=== PATIENT | male | born 1940 | race Caucasian/White ===

== ENCOUNTER 2023-01-27 00:39 | Day surgery (SDC) | payer MEDICARE, SELFPAY ==
[2023-01-26 10:22] VITALS: BMI 29.3
--- NOTE | 2023-01-26 10:37 | PC.NURSE ---
Report to the Outpatient Waiting Room, entrance under the green pavilion located off [facility], at time ___0745____ on date ___01/27/23____. Planned Procedure Time: __1045 . NUC MED INJ @ 0845 Time changes happen often and if your time is changed the preop area will call you the afternoon before. - You and your visitor will be asked to self-screen and do not enter if you have any COVID symptoms. - A mask is optional within the hospital at this time. Patients may have clear liquids (water, carbonated beverages, clear teas, apple juice) until 3 hours prior to surgery (0745 AM) with a maximum of 20 ounces. - No food from midnight until time of surgery - Infants may have breast milk until 4 hours before surgery, infant formula 6 hours prior to surgery. - Children will be allowed to drink immediately following surgery. If applicable, please bring a bottle or sippy cup to assist with drinking. Juice, water, soda, and popsicles are readily available. For infants on formula, please bring formula the day of surgery. Pacifiers are allowed. Take the following medications with a SIP of water the morning of surgery: __METOPROLOL__ DO NOT STOP ANY OF YOUR OTHER PRESCRIPTION MEDICATIONS PRIOR TO SURGERY ?EXCEPT THE FOLLOWING Medications to discontinue per physician N/A Date to take last dose Please no make-up, nail kyrgyz, hairspray, perfume, deodorant, or body powder the day of surgery. No jewelry (including any body piercings) or valuables the day of surgery, leave them at home. Please take a shower or bath the night before, or the morning of, surgery with an antibacterial soap. Wear comfortable, loose fitting clothing. Children are encouraged to wear pajamas. - Jewelry must be removed prior to entering the operating room. Rings and piercings that are not removed may be cut off. - The hospital will not accept responsibility for valuables. - Please leave all valuables, including medications, at home the day of surgery. If you are going home after surgery, a licensed petrol tanker driver must drive you home. - NO public transportation without another adult if you receive anesthesia. - We recommend that an adult stay with you for 24 hours following discharge. - We also recommend that you do not drive, make important decision, drink alcoholic beverages, or take any drugs that were not prescribed by your health care provider for at least 24 hours after your discharge time. For Pediatric surgeries, we recommend two adults accompany the child home. Follow any additional instructions given to you from your surgeon. If you or anyone in your household have experienced Covid symptoms in the past week, please notify your surgeon or the nurse liaison at the phone number below for possible testing. Telephone instructions given to ___PT and asked if any additional questions and then verbalized understanding. Patient advised to call surgeon office or pre surgery nurse liaison [phone] if any additional questions.
[2023-01-27] VITALS (7 sets, daily range): BP systolic 107–137; BP diastolic 68–95; PULSE 94–96; RESP 15–26; TEMP 36.4–36.7; O2SAT 92–100; BMI 28.5
--- NOTE | ~2023-01-27 | NM_ITS ---
EXAMINATION: NM sentinel node w imaging DATE: 01/27/2023 10:18 INDICATION: Left earlobe melanoma TECHNIQUE: 0.512 mCi Tc-99m Lymphoseek was injected in two aliquots cephalad and caudal to the transv erse surgical wound along the pinna of the left ear. Immediate and delayed scintigrams of the neck an d chest were obtained. IMPRESSION: 1. Left ear sentinel lymph node radiopharmaceutical injection demonstrating a single left submandibu lar sentinel lymph node. Reviewed, dictated and finalized at location A. IMPRESSION: 1. Left ear sentinel lymph node radiopharmaceutical injection demonstrating a single left submandibular sentinel lymph node.
--- NOTE | 2023-01-27 07:11 | WPDHPUPDATE1 ---
History and Physical Update Update Date/Time: 01/27/23 07:11 History and Physical has been reviewed, including an updated exam of the patient. There are NO changes in the patient's condition. Risks, benefits, and alternatives have been discussed and questions answered. Patient agrees to proceed with procedure.
--- NOTE | 2023-01-27 07:22 | ECG_ITS ---
Measurements Intervals [place] Rate: 91 P: 5 CO: 181 QRS: -53 QRSD: 99 T: 69 QT: 368 QTc: 454 Interpretive Statements SINUS RHYTHM VOLTAGE CRITERIA FOR LVH [MEETS CRITERIA IN ONE OF: R(aVL), S(V1), R(V5), R(V5/V6)+S(V1)] LEFT ANTERIOR SUPERIOR HEMIBLOCK ABNORMAL ECG NO PREVIOUS ECG AVAILABLE FOR COMPARISON Electronically Signed On 01-27-2023 13:25:50 CDT by Emmett Mosley M.D.
[2023-01-27] MEDS: LACTATED RINGERS 1,000 ML 30 ML IV CONT (08:55)
[2023-01-27 09:10] LABS: Glucose Point of Care 132 mg/dl (65-105)
[2023-01-27 09:12] LABS: Anion Gap 8 mmol/L (8-16); Blood Urea Nitrogen 15 mg/dL (9-20); Calcium 9.2 mg/dL (8.4-10.2); Carbon Dioxide 26 mmol/L (22-30); Chloride 103 mmol/L (98-107); Estimated CRCL calculation 61 ml/min; Estimated Glomerular Filt Rate > 60; Glucose 126 mg/dL (65-110); Potassium 4.2 mmol/L (3.4-5.0); Sodium 137 mmol/L (137-145)
[2023-01-27 09:19] LABS: Prothrombin Time 13.5 Seconds (11.1-14.7)
[2023-01-27 09:20] LABS: Partial Thromboplastin Time 36.1 SECONDS (22.3-36.8)
--- NOTE | 2023-01-27 10:00 | SUR.PREOP ---
0910- Patient to nuclear medicine via wheelchair by Dario Mantilla RN. 1000- Patient returned to pre-op room 7 via wheelchair by radiology staff.
--- NOTE | 2023-01-27 10:40 | WPDANESEPPF ---
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 Patient Data Age: 82 Gender: M Height: 1.8 m Weight: 93 kg Last Vital Signs Temp 97.6 F 01/27/23 08:30 Pulse 94 01/27/23 08:30 Resp 16 01/27/23 08:30 BP 137/95 H 01/27/23 08:30 Pulse Ox 97 01/27/23 08:30 O2 Del Method Room Air 01/27/23 08:30 Allergies Allergy/AdvReac Type Severity Reaction Status Date / Time Penicillins AdvReac FEET Verified 01/27/23 09:02 SWELLING Home Medications Medication Instructions Recorded Confirmed Type allopurinol 300 mg tablet 300 mg DAILY 01/26/23 01/26/23 History aspirin 81 mg tablet,delayed 81 mg PO DAILY 01/26/23 01/26/23 History release atorvastatin 80 mg tablet 80 mg HS 01/26/23 01/26/23 History metformin 1,000 mg tablet 500 mg BID 01/26/23 01/26/23 History metoprolol tartrate 25 mg tablet 25 mg BID 01/26/23 01/27/23 History polyethylene glycol 3350 17 17 g PO DAILY 01/26/23 01/26/23 History gram/dose oral powder (Miralax) Laboratory Tests 01/27/23 01/27/23 08:52 09:06 PT 13.5 Seconds (11.1-14.7) INR 1.0 APTT 36.1 SECONDS (22.3-36.8) Sodium 137 mmol/L (137-145) Potassium 4.2 mmol/L (3.4-5.0) Chloride 103 mmol/L (98-107) Carbon Dioxide 26 mmol/L (22-30) Anion Gap 8 mmol/L (8-16) BUN 15 mg/dL (9-20) Creatinine 0.90 mg/dL (0.7-1.3) Estim Creat Clear Calc 61 ml/min Estimated GFR > 60 (59 - ) Glucose 126 H mg/dL (65-110) POC Capillary Glucose 132 H mg/dl (65-105) Calcium 9.2 mg/dL (8.4-10.2) Patient hx anesthesia problems: none Family hx anesthesia problems: none Results Review: All pre-operative results and documents have been reviewed as part of the pre-operative evaluation. [facility] Social History Social History Smoking packs per day: 1 Smoking cigarettes per day: 20.0 Years smoked: 30 Smoking pack-years: 30.00 Smoking status: Former smoker Tobacco type: cigarettes Additional smoking assessment comments: STAETS QUIT 2017~ Alcohol intake: current Alcohol use details: RARELY - COUPLE TIMES A YR Substance use: never Substance use type: does not use Living arrangements: alone Spiritual care concerns: No Anes - Eval Final PreProcedure Day of Procedure 01/27/23 10:40 Patient weight: normal Heart: regular rate and rhythm Lungs: clear to auscultation Airway: Mallampati scale class II Neurological: alert and oriented Last oral intake: >/= 8 hours ASA classification: III Emergent: no Anesthetic plan: proceed Anesthesia type and monitoring: general LMA and standard monitoring Results Review: All pre-operative results and documents have been reviewed as part of the pre-operative evaluation. Informed Consent: The patient's anesthetic plan and its attendant risks and benefits were discussed with the patient/family/POA. Questions were solicited and answers provided to the satisfaction of the patient/family/POA.
[2023-01-27] MEDS: LIDO 1%/EPINEPHRINE 1:100,000 20 ML VIAL 10 ML INFILTRATE (10:47)
--- NOTE | 2023-01-27 12:42 | W.PM.PROC2 ---
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 At nuclear medicine an inframandibular hot spot was identified and marked. This lay right at the inferior margin of the mandible between the angle and the mentum. The patient was rolled into the operating room and placed supine on the operating table. He was given general anesthesia with an LMA. His shoulder was supported on a rolled towel. The left face and neck were prepped and draped in usual fashion. The ink mary kate was confirmed. A time-out was held and confirmed. The area was examined for palpable lymph nodes. None were identified. The angle of the mandible and the margin of the body were marked as well as presumed course for the marginal mandibular nerve. A left neck crease was identified about 3 cm below the margin of the mandible. This site was infiltrated with 1% lidocaine with epinephrine just under the dermis. No additional lidocaine was used. The patient had no IV muscle relaxant. The incision was made as marked and dissected through the subcutaneous tissue to the platysma. A vertical split in the platysma was done just to see if we could find the marginal mandibular nerve and did not. The platysma was divided below that level over a hemostat. [place] use of the nerve stimulator was done and the nerve was protected throughout under the upper flap. Subsequent dissection was almost entirely done with blunt dissection using Littler or small Metzenbaum. The submandibular gland was identified, the capsule was carefully exposed. The marginal mandibular nerve was again identified there. The gamma probe did identify a signal at the skin marking spot prior to incision. Once the flap was elevated it became very difficult to identify any particular hot location other than the original tumor site. The submandibular gland was exposed on its outer surface taking care to manage the marginal mandibular nerve. The facial vein was divided between ligatures and it was elevated cephalad to protect the identified nerve. The submandibular gland was essentially subjacent to the reported hot spot . All tissue superficial to the gland was carefully examined with the gamma probe. With additional blunt dissection lateral and medial to the gland I was able to dissect more deeply allowing placement of the gamma probe directed away from the original tumor site. There was a low steady count from all aspects that were dissected. The probe was directed around the gland, up under the mandible and inferiorly and superiorly in the direction of the jugular vein and into the substance of the gland and along the deep side of the platysma flap. I was not able at any time to detect any spot with a consistently higher count. The search was terminated. The 3 cm gap in the platysma was not repaired the dermis was repaired with running intradermal 3-0 Monocryl suture. No drains were placed Estimated Blood Loss 3 Drains No Packing No Pathology None sent Complications No immediate complications Condition Stable Disposition Same day
[2023-01-27 12:51] LABS: Glucose Point of Care 114 mg/dl (65-105)
== END 2023-01-27 14:09 | disposition home or self-care (01) ==
PROVIDERS: PCP Family Medicine; Visit Provider Plastic Surgery
PROC: (CPT 21899; principal; 2023-01-27 11:00)
DX: C43.22 Malignant melanoma of left ear and external auricular canal (principal); Z79.84 Long term (current) use of oral hypoglycemic drugs; Z79.82 Long term (current) use of aspirin; Z87.891 Personal history of nicotine dependence; Z86.73 Personal history of transient ischemic attack (TIA), and cerebral infarction without residual deficits
CPT/HCPCS: 21899; 36415; 78195; 80048; 82948; 85610; 85730; 93005; A9270; A9520; J1165; J1200; J2704; J3010; J7120

== ENCOUNTER 2023-09-21 10:52 | Outpatient (CLI) | payer MEDICARE, SELFPAY ==
--- NOTE | ~2023-09-21 | PE_ITS ---
EXAMINATION: PET_PETPSMAST_PT DATE: 09/21/2023 14:40 INDICATION: Prostate cancer for restaging with elevated PSA level TECHNIQUE: 5.337 mCi of Locametz Ga-68([id number]) was administered i.v. Low dose computed milton ography (CT) images were acquired from the base of the brain to the base of the brain to the proximal thighs for attenuation correction and anatomic localization. Positron emission tomography (PET) imag es were acquired in the same distribution beginning 90 minutes after injection. Images including fuse d PET/CT images were reconstructed in axial, coronal, and sagittal planes. Automated exposure control technique was employed. The dose-length product was 1231.28 mGy-cm. COMPARISON: None FINDINGS: Head/neck: Typical pattern of symmetric physiologic increased activity in the lacrimal, parotid and submandibula r glands as well as along the mucosa of the nasal and oral cavities, the simona-, naso- and hypopharynx, the glottis and esophagus. There are couple small normal sized PSMA avid left supraclavicular lymph nodes, the larger and more intensely FDG avid lymph node measuring 7 x 5 mm with maximal SUV 19.1. Chest: Dependent groundglass opacities in the lungs most likely related to atelectasis. Couple tiny calcifie d pulmonary nodules in the right upper and lower lobes and calcified right hilar and mediastinal lymp h nodes consistent with old granulomatous disease. No other suspicious pulmonary nodules, pneumonia, pulmonary edema or pleural effusion. Heart size is normal. Atherosclerotic coronary artery calcific l esion. Aortic valve calcification. No pericardial effusion. Thoracic aorta is normal in caliber. No p athologically enlarged or PSMA avid thoracic lymphadenopathy. There is a small focus of intense PSMA uptake with maximal SUV of 37.9 at the posterior left first rib without evident radiologic correlate . Abdomen/pelvis/proximal thighs: Physiologic renal accumulation and excretion of activity in the kidneys, bladder and along portions o f ureters. There are low-attenuation photopenic cyst at the right kidney the larger the upper pole me asuring 2.9 cm and the smaller measuring 1.8 cm lower pole with subtle peripheral partial rim calcifi cation. There is prominent PSMA uptake along the left to right across the posterior aspect of the pro state with maximal SUV of 28.9. The increased uptake appears to extend into the bilateral seminal ves icles. There is also soft tissue density reaching the fat plane between the prostate in the anus. The re is a similar degree of increased PSMA activity at the anus and could not exclude direct extension of prostate cancer although the anal activity could also be physiologic. There is stranding with incr eased PSMA uptake in the inferior mesenteric fat situated between the bladder and sigmoid colon anter iorly, the bilateral common iliac vasculature on the left and right and the lumbosacral spine posteri ingrid with maximal SUV of 36.4 which is suspicious for metastatic disease although no associated patho logically enlarged lymph nodes appreciated. There are a few small FDG avid left perinephric lymph nod es, the largest and most intense measuring 7 mm in with maximal SUV of 16.1 situated along the infrar enal aorta at the level of L4. Calcified nodules in the liver consistent with old granulomatous disea se. Normal degree and slightly heterogenous pattern of increased uptake throughout the liver and sple en without radiologic correlate or dominant PSMA avid lesion. The gallbladder, pancreas and bilateral adrenal glands are normal. Moderate uptake scattered throughout the bowels with typical duodenal and proximal jejunal predominance and without radiologic correlate, also likely physiologic. Musculoskeletal: Aside from the lesion at the posterior left first rib there are no other suspicious lytic, blastic or PSMA avid bone lesions. IMPRESSION: 1. Increased uptake in the pro
== END 2023-09-21 10:53 | disposition home or self-care (01) ==
PROVIDERS: PCP Family Medicine; Visit Provider Urology
DX: C61 Malignant neoplasm of prostate (principal); R93.5 Abnormal findings on diagnostic imaging of other abdominal regions, including retroperitoneum
CPT/HCPCS: 78815; A9596

== ENCOUNTER 2024-09-05 14:43 | Outpatient (CLI) | payer MEDICARE, SELFPAY ==
[2024-09-05 15:06] LABS: Basophils Absolute Auto 0.02 K/mm3 (0.00-0.10); Basophils Percent Auto 0.3 % (0.0-1.0); Eosinophils Absolute Auto 0.12 K/mm3 (0.02-0.50); Eosinophils Percent Auto 1.8 % (1.0-6.0); Hematocrit 38.9 % (37.0-46.0); Hemoglobin 12.7 g/dL (12.4-15.3); Immature Granulocyte Absolute 0.03 K/mm3 (0.00-0.00); Immature Granulocyte Percent A 0.5 % (0.0-0.0); Lymphocytes Absolute Auto 0.91 K/mm3 (1.10-4.50); Lymphocytes Percent Auto 13.8 % (18.0-42.0); Mean Corpuscular HGB Conc 32.6 g/dL (32-36); Mean Corpuscular Hemoglobin 32.2 pg (27.0-31.0); Mean Corpuscular Volume 98.5 fL (78.0-102.0); Mean Platelet Volume 9.2 fl (8.7-11.0); Monocytes Absolute Auto 0.71 K/mm3 (0.10-0.90); Monocytes Percent Auto 10.8 % (2.0-11.0); Neutrophils Percent Auto 72.8 % (50.0-70.0); Platelet Count Result 222 K/mm3 (150-420); Red Blood Count 3.95 M/mm3 (4.70-6.10); Red Cell Distribution Width 13.2 % (11.6-14.4); White Blood Count 6.6 K/mm3 (4.8-10.8)
[2024-09-05 15:20] LABS: Hemoglobin A1C 5.5 % (<5.7)
[2024-09-05 15:40] LABS: Alanine Aminotransferase 17 U/L (16-63); Albumin Level 3.3 g/dL (3.4-5.0); Alkaline Phosphatase 153 U/L (46-116); Anion Gap 6 mmol/L (4-12); Aspartate Amino Transferase 12 U/L (15-37); Bilirubin,Total 0.4 mg/dL (0.00-1.00); Blood Urea Nitrogen 17 mg/dL (7-18); Calcium 9.1 mg/dL (8.5-10.1); Carbon Dioxide 31 mmol/L (21-32); Chloride 103 mmol/L (98-108); Cholesterol 113 mg/dL (0-200); Estimated Glomerular Filt Rate 54; Glucose 102 mg/dL (70-99); HDL Direct 35 mg/dL (40-60); LDL Cholesterol Calculated 41 mg/dL (<130); Magnesium 1.9 mg/dL (1.8-2.4); Osmolality Calculated 291 mOsm/kg (285-295); Potassium 4.5 mmol/L (3.5-5.1); Sodium 140 mmol/L (136-145); Total Protein 6.6 g/dL (6.4-8.2); Triglycerides 184 mg/dL (0-150)
--- OUTSIDE RECORDS SUMMARY | 2024-09-05 16:05 | XMS_ITS | Clinical Summary ---
Author Organization [facility] Address [address] [place] [address] Care Team Providers Care Marine Tower Operator Name Role Phone Karen Watkins TAMARA Primary Care Provider Jaylen Mccarty MD Unavailable [phone] Fiorella Gilman PA-C Unavailable + [phone] Allergies Active Allergy Reactions Criticality Noted Date Comments Penicillins Other (see comment) 11/22/2023 As a child had reaction. Medications allopurinol (ZYLOPRIM) 300 MG tablet Take 1 tablet (300 mg total) by mouth daily. 06/10/2023 Active atorvastatin (LIPITOR) 80 MG tablet Take 1 tablet (80 mg total) by mouth daily. 06/10/2023 Active metFORMIN (GLUCOPHAGE) 1000 MG tablet Take 1 tablet (1,000 mg total) by mouth 2 (two) times daily. 06/10/2023 Active tamsulosin (FLOMAX) 0.4 MG Cap Take 1 capsule (0.4 mg total) by mouth daily. 09/05/2023 Active metoprolol tartrate (LOPRESSOR) 25 MG tablet Take 1 tablet (25 mg total) by mouth 2 (two) times daily. 06/10/2023 Active Social History Tobacco Use Types Packs/Day Years Used Date Smoking Tobacco: Former Cigarettes Smokeless Tobacco: Never Tobacco Cessation:Counseling Given: Not Answered Comments:Smoked for 30 years. He quit 20 years ago. Alcohol Use Standard Drinks/Week Comments Yes 0 (1 standard drink = 0.6 oz pur e alcohol) occ. 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 Gender Identity Not on file Sexual Orientation Not on file Last Filed Vital Signs Vital Sign Reading Time Taken Comments Blood Pressure 164/88 11/22/2023 1:28 PM CDT Pulse 78 11/22/2023 1:28 PM CDT Temperature 35.8 C (96.4 F) 11/22/2023 10:43 AM CDT Respiratory Rate 20 11/22/2023 1:28 PM CDT Oxygen Saturation 93% 11/22/2023 1:28 PM CDT Inhaled Oxygen Concentration - - Weight 96.6 kg (213 lb) 11/22/2023 10:43 AM CDT Height 180.3 cm (5' 11 ) 11/22/2023 10:43 AM CDT Body Mass Index 29.71 11/22/2023 10:43 AM CDT Plan of Treatment Health Maintenance Due Date Last Done Comments DTaP, Tdap and Td Vaccines ( 1 - Tdap) 1961 Zoster Vaccines (1 of 2) 1992 Annual Medicare Wellness Visit 2007 Pneumococcal Vaccine: 65+ Ye ars (1 of 1 - PCV) 2007 RSV Immunization or 60+ Years (1 - 1-dose 75+ series) 2017 COVID-19 Vaccine ( - 2023-2 5 season) 2024 Influenza Adult (#1) 2024 Meningococcal B Vaccine Aged Out No l onger eligible based on patient's age to complete this topic Meningococcal Vaccine Aged Out No evelia michael eligible based on patient's age to complete this topic RSV Immunizations Under 20 Months Aged Out No longer eligible based on patient's age to complete this topic Insurance MEDICARE Care Teams Marine Tower Operator Relationship Specialty Start Date End Date Karen Watkins APNP [address] [place] [address] PCP - General NURSE PRACTITIONER 11/22/23 Jaylen Mccarty MD [address] [place] [id number] Consulting Physician CLINICAL CARDIAC ELECTROPHYSIOLOGY 11/24/23 Fiorella Gilman PA-C [address] [place] [phone] Supervisor CLINICAL CARDIAC ELECTROPHYSIOLOGY 11/24/23
[2024-09-07 03:03] LABS: Vitamin D 25 Hydroxy 37 ng/mL (30-100)
== END 2024-09-05 14:44 | disposition home or self-care (01) ==
PROVIDERS: PCP Nurse Practitioner Family; Visit Provider Nurse Practitioner Family
DX: I10 Essential (primary) hypertension (principal); Z13.6 Encounter for screening for cardiovascular disorders; E78.5 Hyperlipidemia, unspecified; Z79.899 Other long term (current) drug therapy; E11.9 Type 2 diabetes mellitus without complications
CPT/HCPCS: 36415; 80053; 80061; 82306; 83036; 83735; 85025

== ENCOUNTER 2024-11-21 12:46 | Emergency (ER) | payer MEDICARE, SELFPAY ==
--- NOTE | ~2024-11-21 | XR_ITS ---
XR chest 1V portable 11/21/2024 13:43 Indication: Weakness Procedure: AP portable chest Comparison: No prior studies for comparison. Findings: Shallow inspiration with crowding of the pulmonary vessels. Focal left basilar airspace dis ease versus mild interstitial edema. There is atherosclerosis of the aorta. No pneumothorax. No acute osseous abnormality. Possible mild interstitial edema. Impression: 1: Possible mild interstitial edema versus basilar airspace disease which may represent atelectasis o r pneumonia. Shallow inspiration. Reviewed, dictated and finalized at location B. Impression: 1: Possible mild interstitial edema versus basilar airspace disease which may r epresent atelectasis or pneumonia. Shallow inspiration.
[2024-11-21 12:48] VITALS: BP 98/60; PULSE 99; RESP 20; TEMP 36.6; O2SAT 100
--- NOTE | 2024-11-21 13:03 | ED.WEAKNESS ---
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 The patient does not have any specific complaint but feels generalized weakness. -- He was noted to have low blood pressure in the clinic which prompted them to transfer the patient to the ED. patient denies any headache, sore throat, upper respiratory tract infection or sinus pain. no chest pain or shortness of breath. no nausea/ vomiting /abdominal pain /diarrhea. No dysuria or hematuria. MD Complaint: generalized weakness Onset (ago): hour(s) ( 3 hours) Duration: constant Location: generalized Severity: mild Relieving factors: none Exacerbating factors: none Associated symptoms: denies other symptoms Related Data Home Medications ?Medication ?Instructions ?Recorded ?Confirmed ?Last Taken ?Type aspirin 81 mg tablet,delayed 81 mg PO DAILY 01/26/23 09/05/24 Unknown History release polyethylene glycol 3350 17 17 g PO DAILY 01/26/23 09/05/24 Unknown History gram/dose oral powder (Miralax) Allergies Allergy/AdvReac Type Severity Reaction Status Date / Time Penicillins AdvReac FEET Verified 11/21/24 12:50 SWELLING Review of Systems Review of Systems: All systems reviewed & are unremarkable except as noted in HPI and below Constitutional: Constitutional: Reports as per HPI and Reports no additional constitutional complaints Eyes: Eyes: Reports as per HPI and Reports no additional eye complaints ENT: Reports system reviewed and no additional complaints, except as documented and Reports as per HPI Cardiovascular: Cardiovascular: Reports as per HPI and Reports no additional cardiovascular complaints Respiratory: Respiratory: Reports as per HPI and Reports no additional respiratory complaints Gastrointestinal: Gastrointestinal: Reports as per HPI and Reports no additional gastrointestinal complaints Genitourinary: Genitourinary: Reports no additional male genitourinary complaints and Reports as per HPI Musculoskeletal: Musculoskeletal: Reports no additional musculoskeletal complaints and Reports as per HPI Integumentary/Breasts: Skin/Breast: Reports system reviewed and no additional complaints, except as docu and Reports as per HPI Neurologic: Reports system reviewed and no additional complaints, except as documented and Reports as per HPI Psychiatric: Psychiatric: Reports no additional psychiatric complaints and Reports as per HPI Endocrine: Endocrine: Reports no additional endocrine complaints and Reports as per HPI Hematologic/Lymphatic: Hematologic/Lymphatic: Reports no additional hematologic/lymphatic complaints and Reports as per HPI Allergic/Immunologic: Allergic/Immunologic: Reports no additional allergic/immunologic complaints and Reports as per HPI [facility] Surgical History Surgical History History of kidney removal Social History Social History Smoking packs per day: 1 Smoking cigarettes per day: 20.0 Years smoked: 30 Smoking pack-years: 30.00 Smoking status: Former smoker Tobacco type: cigarettes Additional smoking assessment comments: STAETS QUIT 2017~ Alcohol intake: former Alcohol use details: RARELY - COUPLE TIMES A YR Substance use: never Substance use type: does not use Do You Feel Safe in your Home?: Yes Lack of Transportation: No Lack of Food: Never True Current Housing: I Have Housing Difficulty Paying Gas/Electric Bills: No Difficulty Paying for Meds: No Currently Unemployed: No Difficulty w/ Childcare or Family Care: No Living arrangements: alone Occupation/Education: retired Gender identity (if verbalized by the patient): Male Sexual Orientation (if Verbalized by the Patient): Straight or Heterosexual Spiritual care concerns: No Exam Narrative: pressure 107/84 Const: General: no acute distress Nutritional Appearance: well nourished Orientation/consciousness: patient oriented x3 Limitations: no limitations HENMT: Head: normal to inspection Ears: external ears normal Face/Nose/Sinus: Normal external nose present Face and sinus: normal facial exam Mouth: Yes Normal oral and palatal mucosa present Throat: posterior oropharynx normal Eyes: Conjunctivae: conjunctivae normal Pupils: Equal, round and reactive pupils present EOM: EOMs intact bilaterally Direct Ophthalmoscopy: no photophobia Neck: Neck: normal visual inspection, no lymphadenopathy and no meningeal signs Chest: Chest palpation & inspection: normal inspection of the chest Resp: Effort & Inspection: normal respiratory effort Other: bibasilar rales Cardio: Rate: regular rate Rhythm: regular rhythm GI: GI Palp: Yes Soft to palpation Auscultation: normal bowel sounds Other: no tenderness/ rigidity /rebound : General: Yes no CVA tenderness Back/Spine/Pelvis: Back: no CVA tenderness Skin: General skin exam: normal color Rashes: no rashes Wounds: no wounds Neuro: General: patient oriented x3, moves all extremities, no meningeal signs, no focal motor deficits and CN's II-XI intact bilaterally Cranial nerves: Yes Nystagmus not present Speech: normal speech Extrem: General: normal to inspection and no clubbing, cyanosis or edema Psych: Mental Status: mental status grossly normal Affect: normal affect Attitude: cooperative Course Course Emergency Course: generalized weakness history of metastatic prostate cancer elevated lactate of 2.8-- no obvious focus of infection. Patient is afebrile with a normal white cell count. Chest x-ray reveals bibasilar interstitial infiltrates which could be secondary to pneumonia/ atelectasis. will treat with empiric Zithromax. Vital Signs Vital signs: Vital Signs Temperature 36.6 C 11/21/24 12:48 Pulse Rate 99 11/21/24 12:48 Respiratory Rate 20 11/21/24 12:48 Blood Pressure 98/60 L 11/21/24 12:48 Pulse Oximetry 100 11/21/24 12:48 Oxygen Delivery Room Air 11/21/24 12:48 Temperature 36.6 C 11/21/24 12:48 Pulse Rate 99 11/21/24 12:48 Respiratory Rate 20 11/21/24 12:48 Blood Pressure 98/60 L 11/21/24 12:48 Pulse Oximetry 100 11/21/24 12:48 Oxygen Delivery Room Air 11/21/24 12:48 MDM - Weakness MDM Narrative Medical decision making narrative: Metastatic prostate cancer generalized weakness bibasilar infiltrate/atelectasis. Differential Diagnosis Differential diagnosis: Likely sepsis Lab Data Attestation: I reviewed the patient's lab results. 11/21/24 13:45 11/21/24 13:45 Labs: Lab Results 11/21/24 11/21/24 11/21/24 Range/Units 13:41 13:45 13:47 WBC 6.2 (4.8-10.8) K/mm3 RBC 4.27 L (4.70-6.10) M/mm3 Hgb 13.4 (12.4-15.3) g/dL Hct 41.3 (37.0-46.0) % MCV 96.7 (78.0-102.0) fL MCH 31.4 H (27.0-31.0) pg MCHC 32.4 (32-36) g/dL RDW 13.5 (11.6-14.4) % Plt Count 223 (150-420) K/mm3 MPV 9.4 (8.7-11.0) fl Immature Gran % (Auto) 0.3 H (0.0-0.0) % Neut % (Auto) 72.2 H (50.0-70.0) % Lymph % (Auto) 12.8 L (18.0-42.0) % [place] % (Auto) 10.2 (2.0-11.0) % Eos % (Auto) 4.2 (1.0-6.0) % Baso % (Auto) 0.3 (0.0-1.0) % Lymph # (Auto) 0.79 L (1.10-4.50) K/mm3 [place] # (Auto) 0.63 (0.10-0.90) K/mm3 Eos # (Auto) 0.26 (0.02-0.50) K/mm3 Baso # (Auto) 0.02 (0.00-0.10) K/mm3 Abs Immat Gran (auto) 0.02 H (0.00-0.00) K/mm3 Absolute Neuts (auto) 4.44 (1.70-7.20) K/mm3 Absolute Nucleated RBC 0.00 (0.00-0.00) K/mm3 Nucleated RBC % 0.0 (0-0.0) % Sodium 139 (137-145) mmol/L Potassium 4.3 (3.4-5.0) mmol/L Chloride 105 (98-107) mmol/L Carbon Dioxide 28 (22-30) mmol/L Anion Gap 6 (4-12) mmol/L BUN 15 (9-20) mg/dL Creatinine 1.02 (0.7-1.3) mg/dL Estim Creat Clear Calc 53 ml/min Estimated GFR > 60 (59 - ) Glucose 121 H (65-110) mg/dL Calculated Osmolality 289 (285-295) mOsm/kg Lactic Acid 2.8 H (0.4-2.0) mmol/L Uric Acid 3.8 (3.5-8.5) mg/dL Calcium 9.0 (8.4-10.2) mg/dL Total Bilirubin 0.6 (0.2-1.3) mg/dL AST 28 (17-59) U/L ALT 22 (6-50) U/L Alkaline Phosphatase 107 (38-126) U/L Troponin I < 0.012 (0.000-0.034) ng/mL NT-Pro-B Natriuret Pep 127 H (19.9-100) pg/mL Total Protein 6.5 (6.3-8.2) g/dL Albumin 4.1 (3.5-5.1) g/dL Urine Color (Yellow) Urine Appearance (Clear) Urine pH (5.0-8.0) Ur Specific [place] (1.010-1.020) Urine Protein (Negative) Urine Glucose (UA) (Negative) Urine Ketones (Negative) Ur Blood (Man) (Negative) Urine Nitrate (Negative) Urine Bilirubin (Negative) Urine Urobilinogen (0.2-1.0) mg/dL Leukocyte Esterase Rfl (Negative) [place]/UL Influenza A (RT-PCR) Negative (Negative) Influenza B (RT-PCR) Negative (Negative) RSV (RT-PCR) Negative (Negative) SARS-CoV-2 RNA (RT-PCR) Negative (Negative) 11/21/24 Range/Units 13:53 WBC (4.8-10.8) K/mm3 RBC (4.70-6.10) M/mm3 Hgb (12.4-15.3) g/dL Hct (37.0-46.0) % MCV (78.0-102.0) fL MCH (27.0-31.0) pg MCHC (32-36) g/dL RDW (11.6-14.4) % Plt Count (150-420) K/mm3 MPV (8.7-11.0) fl Immature Gran % (Auto) (0.0-0.0) % Neut % (Auto) (50.0-70.0) % Lymph % (Auto) (18.0-42.0) % [place] % (Auto) (2.0-11.0) % Eos % (Auto) (1.0-6.0) % Baso % (Auto) (0.0-1.0) % Lymph # (Auto) (1.10-4.50) K/mm3 [place] # (Auto) (0.10-0.90) K/mm3 Eos # (Auto) (0.02-0.50) K/mm3 Baso # (Auto) (0.00-0.10) K/mm3 Abs Immat Gran (auto) (0.00-0.00) K/mm3 Absolute Neuts (auto) (1.70-7.20) K/mm3 Absolute Nucleated RBC (0.00-0.00) K/mm3 Nucleated RBC % (0-0.0) % Sodium (137-145) mmol/L Potassium (3.4-5.0) mmol/L Chloride (98-107) mmol/L Carbon Dioxide (22-30) mmol/L Anion Gap (4-12) mmol/L BUN (9-20) mg/dL Creatinine (0.7-1.3) mg/dL Estim Creat Clear Calc ml/min Estimated GFR (59 - ) Glucose (65-110) mg/dL Calculated Osmolality (285-295) mOsm/kg Lactic Acid (0.4-2.0) mmol/L Uric Acid (3.5-8.5) mg/dL Calcium (8.4-10.2) mg/dL Total Bilirubin (0.2-1.3) mg/dL AST (17-59) U/L ALT (6-50) U/L Alkaline Phosphatase (38-126) U/L Troponin I (0.000-0.034) ng/mL NT-Pro-B Natriuret Pep (19.9-100) pg/mL Total Protein (6.3-8.2) g/dL Albumin (3.5-5.1) g/dL Urine Color Light yellow (Yellow) Urine Appearance Clear (Clear) Urine pH 7.0 (5.0-8.0) Ur Specific [place] 1.015 (1.010-1.020) Urine Protein Negative (Negative) Urine Glucose (UA) Negative (Negative) Urine Ketones Negative (Negative) Ur Blood (Man) Negative (Negative) Urine Nitrate Negative (Negative) Urine Bilirubin Negative (Negative) Urine Urobilinogen 0.2 (0.2-1.0) mg/dL Leukocyte Esterase Rfl Negative (Negative) [place]/UL Influenza A (RT-PCR) (Negative) Influenza B (RT-PCR) (Negative) RSV (RT-PCR) (Negative) SARS-CoV-2 RNA (RT-PCR) (Negative) ECG Data EKG #1: ECG completion date: 11/21/24 ECG completion time: 13:36 Prior ECG tracings: available for review Interpretation: normal sinus rhythm. Right axis deviation. 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 No ST elevation. Discharge Plan Discharge Clinical Impression: Generalized weakness Bilateral pneumonia Qualifiers: Pneumonia type: due to unspecified organism Lung location: lower lobe of lung Qualified Code(s): J18.9 - Pneumonia, unspecified organism Patient Disposition: Home Condition: Stable Instructions: Antibiotic Form, Bacterial Pneumonia (ED) Patient Language: Arabic Prescriptions: New azithromycin [Zithromax] 250 mg tablet See Rx Instructions .ROUTE .COMPLEX Qty: 6 0RF Rx Instructions: For 250 mg dose pack: take 500 mg today (day 1), then 250 mg for 4 days (days 2-5) No Action allopurinol 300 mg tablet 300 mg PO DAILY Qty: 90 3RF atorvastatin 80 mg tablet 80 mg PO HS Qty: 90 3RF metoprolol tartrate 25 mg tablet 12.5 mg PO BID Qty: 180 3RF metformin 500 mg tablet 500 mg PO BID Qty: 180 3RF tamsulosin 0.4 mg capsule 0.4 mg PO DAILY Qty: 90 3RF aspirin 81 mg Tablet,Delayed Release (Dr/Ec) 81 mg PO DAILY polyethylene glycol 3350 [Miralax] 17 gram/dose Powder 17 g PO DAILY Follow-up/Referrals: Jazzy Medel RECORDING ARTIST [Primary Care Provider] - Time of Disposition: 14:34
--- NOTE | 2024-11-21 13:26 | ECG_ITS ---
Test Date: 2024-11-21 13:35:03 Measurements Intervals [place] Rate: 91 P: 18 PA: 192 QRS: 117 QRSD: 100 T: -7 QT: 359 QTc: 443 Interpretive Statements SINUS RHYTHM LEFT POSTERIOR FASCICULAR BLOCK POSSIBLE ANTERIOR MYOCARDIAL INFARCTION , OF INDETERMINATE AGE BORDERLINE ST-T WAVE ABNORMALITY- INFERIOR LEADS BASELINE ARTIFACT- I, II, III, AVR, AVL, AVF, V1 ABNORMAL ECG No previous ECG available for comparison Electronically Signed On 11-21-2024 14:10:17 CDT by Vini Nesbitt D.O.
[2024-11-21 13:53] LABS: Basophils Absolute Auto 0.02 K/mm3 (0.00-0.10); Basophils Percent Auto 0.3 % (0.0-1.0); Eosinophils Absolute Auto 0.26 K/mm3 (0.02-0.50); Eosinophils Percent Auto 4.2 % (1.0-6.0); Hematocrit 41.3 % (37.0-46.0); Hemoglobin 13.4 g/dL (12.4-15.3); Immature Granulocyte Absolute 0.02 K/mm3 (0.00-0.00); Immature Granulocyte Percent A 0.3 % (0.0-0.0); Lymphocytes Absolute Auto 0.79 K/mm3 (1.10-4.50); Lymphocytes Percent Auto 12.8 % (18.0-42.0); Mean Corpuscular HGB Conc 32.4 g/dL (32-36); Mean Corpuscular Hemoglobin 31.4 pg (27.0-31.0); Mean Corpuscular Volume 96.7 fL (78.0-102.0); Mean Platelet Volume 9.4 fl (8.7-11.0); Monocytes Absolute Auto 0.63 K/mm3 (0.10-0.90); Monocytes Percent Auto 10.2 % (2.0-11.0); Neutrophils Absolute Auto 4.44 K/mm3 (1.70-7.20); Neutrophils Percent Auto 72.2 % (50.0-70.0); Platelet Count Result 223 K/mm3 (150-420); Red Blood Count 4.27 M/mm3 (4.70-6.10); Red Cell Distribution Width 13.5 % (11.6-14.4); White Blood Count 6.2 K/mm3 (4.8-10.8)
[2024-11-21 14:07] LABS: Add Urine Microscopic? NO; Appearance Urine Clear (Clear); Bilirubin Urine Negative (Negative); Blood Urine Negative (Negative); Color Urine Light Yellow (Yellow); Glucose Urine UA Negative (Negative); Ketones Urine Negative (Negative); Leukocyte Esterase Ur Negative LEU/UL (Negative); Nitrate Urine Negative (Negative); Protein Urine Negative (Negative); Specific Grav Ur 1.015 (1.010-1.020); Urobilinogen Urine 0.2 mg/dL (0.2-1.0)
[2024-11-21 14:14] LABS: Alanine Aminotransferase 22 U/L (6-50); Albumin Level 4.1 g/dL (3.5-5.1); Alkaline Phosphatase 107 U/L (38-126); Anion Gap 6 mmol/L (4-12); Aspartate Amino Transferase 28 U/L (17-59); Bilirubin,Total 0.6 mg/dL (0.2-1.3); Blood Urea Nitrogen 15 mg/dL (9-20); Carbon Dioxide 28 mmol/L (22-30); Chloride 105 mmol/L (98-107); Estimated CRCL calculation 53 ml/min; Estimated Glomerular Filt Rate > 60; Glucose 121 mg/dL (65-110); Osmolality Calculated 289 mOsm/kg (285-295); Potassium 4.3 mmol/L (3.4-5.0); Sodium 139 mmol/L (137-145); Total Protein 6.5 g/dL (6.3-8.2); Uric Acid 3.8 mg/dL (3.5-8.5)
[2024-11-21 14:15] LABS: Lactic Acid Reflex 2.8 mmol/L (0.4-2.0)
[2024-11-21 14:23] LABS: NT Pro B Type Natriuretic Pept 127 pg/mL (19.9-100)
[2024-11-21 14:26] LABS: Troponin I < 0.012 ng/mL (0.000-0.034)
[2024-11-21 14:29] LABS: Influenza A QL RT-PCR Negative (Negative); Influenza B QL RT-PCR Negative (Negative); RSV RNA, RT-PCR Negative (Negative); SARS-CoV-2 RNA PCR Negative (Negative)
[2024-11-21 14:58] VITALS: BP 113/60; PULSE 94; RESP 18; TEMP 36.5; O2SAT 97
[2024-11-21 14:58] LABS: Hemoglobin A1C 5.5 % (<5.7)
[2024-11-21 15:50] LABS: Reflex Lactic Acid Yes or No Add Lactic
== END 2024-11-21 14:52 | disposition home or self-care (01) ==
PROVIDERS: Emergency Provider Internal Medicine Critical Care Medicine; PCP Nurse Practitioner Family
DX: J18.9 Pneumonia, unspecified organism (principal); R53.1 Weakness; E11.9 Type 2 diabetes mellitus without complications; I10 Essential (primary) hypertension; Z87.891 Personal history of nicotine dependence; Z20.822 Contact with and (suspected) exposure to COVID-19; Z85.46 Personal history of malignant neoplasm of prostate
CPT/HCPCS: 36415; 71045; 80053; 81003; 83036; 83605; 83880; 84484; 84550; 85025; 87637; 93005; 99284

== ENCOUNTER 2025-02-01 17:43 | Emergency (ER) | payer MEDICARE, SELFPAY ==
[2025-02-01] VITALS (8 sets, daily range): BP systolic 118–152; BP diastolic 65–86; PULSE 95–105; RESP 16–29; TEMP 36.4; O2SAT 94–97
--- NOTE | ~2025-02-01 | XR_ITS ---
XR tibia fibula LT 2V 02/01/2025 18:18 INDICATION: Left leg pain PROCEDURE: 2 views left tibia/fibula COMPARISON: No prior studies for comparison. FINDINGS: Fracture, dislocation or subluxation is not identified. The soft tissues appear within normal limits. No foreign bodies are identified. IMPRESSION: 1: NO ACUTE BONE OR JOINT ABNORMALITY IDENTIFIED. Reviewed, dictated and finalized at location O.
--- NOTE | ~2025-02-01 | XR_ITS ---
XR foot LT min 3V 02/01/2025 18:19 Indication: Left foot pain Procedure: 3 views left foot Comparison: No prior studies for comparison. Findings: No acute fracture, subluxation or dislocation. There is degenerative calcaneal enthesophyte. Lisfranc joint intact. Osteopenia. Impression: 1: No acute fracture. Reviewed, dictated and finalized at location O. Impression: 1: No acute fracture.
--- NOTE | ~2025-02-01 | XR_ITS ---
XR ankle LT min 3V 02/01/2025 18:19 INDICATION: Left ankle pain PROCEDURE: 3 views left ankle COMPARISON: No prior studies for comparison. FINDINGS: Fracture, dislocation or subluxation is not identified. The soft tissues appear within normal limits. No foreign bodies are identified. There is a small degenerative calcaneal enthesophyte. There are vascular calcifications. IMPRESSION: 1: NO ACUTE BONE OR JOINT ABNORMALITY IDENTIFIED. Reviewed, dictated and finalized at location O.
--- NOTE | 2025-02-01 18:01 | ED.EXTPRO ---
HPI - Extremity Problem General Chief complaint: Extremity Problem,Nontraumatic Stated complaint: up and down b/p and pain rigth leg Time Seen by Provider: 02/01/25 18:01 Source: patient and family Mode of arrival: ambulatory Limitations: dementia History of Present Illness HPI Narrative: 84 years old white male, history of dementia, brought to the emergency room by his son who is telling me that patient complaining of left mid lower leg left foot pain, unable to describe it started 2-3 days ago. Patient had a fall 5 days ago, unknown reason, history of frequent falls. Patient is poor historian because of the dementia. Patient answers I do not know for any question. Related Data Allergies Allergy/AdvReac Type Severity Reaction Status Date / Time Penicillins AdvReac FEET Verified 11/28/24 08:29 SWELLING Review of Systems Review of Systems: All systems reviewed & are unremarkable except as noted in HPI and below PMFSH Surgical History Surgical History History of kidney removal Social History Social History Smoking packs per day: 1 Smoking cigarettes per day: 20.0 Years smoked: 30 Smoking pack-years: 30.00 Smoking status: Former smoker Tobacco type: cigarettes Additional smoking assessment comments: STAETS QUIT 2017~ Alcohol intake: former Alcohol use details: RARELY - COUPLE TIMES A YR Substance use: never Substance use type: does not use Do You Feel Safe in your Home?: Yes Lack of Transportation: No Lack of Food: Never True Current Housing: I Have Housing Difficulty Paying Gas/Electric Bills: No Difficulty Paying for Meds: No Currently Unemployed: No Difficulty w/ Childcare or Family Care: No Living arrangements: alone Occupation/Education: retired Gender identity (if verbalized by the patient): Male Sexual Orientation (if Verbalized by the Patient): Straight or Heterosexual Spiritual care concerns: No Exam Narrative: General appearance: Well-developed, well-nourished Does not look in pain or distress Skin: Normal color Head: Normocephalic, nontraumatic Eyes: Clear conjunctiva ENT: Oropharynx normal, ears normal, nose normal Neck: Supple, nontender Chest and respiratory: Airway patent, no respiratory distress, no accessory muscle use Heart: Regular rate/rhythm Abdomen: Soft, nontender, no organomegaly, quiet bowel sounds Vascular: Normal peripheral pulses, normal capillary refill. Musculoskeletal: Normal range of motion, no bruises, no swelling, no edema, no rash, no wounds, no localized tenderness Neurologic: Alert and oriented to his name only otherwise he does not know any answer to any questions Course Vital Signs Vital signs: Vital Signs Temperature 36.4 C L 02/01/25 17:46 Pulse Rate 100 02/01/25 17:46 Respiratory Rate 20 02/01/25 17:46 Blood Pressure 130/65 02/01/25 17:46 Pulse Oximetry 97 02/01/25 17:46 Oxygen Delivery Room Air 02/01/25 17:46 Temperature 36.4 C L 02/01/25 17:46 Pulse Rate 100 02/01/25 17:46 Respiratory Rate 20 02/01/25 17:46 Blood Pressure 130/65 02/01/25 17:46 Pulse Oximetry 97 02/01/25 17:46 Oxygen Delivery Room Air 02/01/25 17:46 MDM - Extremity (Nontraumatic) MDM Narrative Medical decision making narrative: differential diagnosis include bone fracture, muscular strain / sprain, arterial insufficiency, deep vein thrombosis, peripheral neuropathy Blood workup today includes CBC, CMP, coags and D-dimer which showed elevated D-dimer 7.53. Patient received Lovenox 90 mg subQ once prior to discharge to get venous Doppler lower extremity in the morning at [facility]. Venous Doppler is not available at [facility] the next 48 hours. if the venous Doppler is negative, diagnosis will be leg pain of unknown etiology which is high likely muscle strain/ sprain or peripheral neuropathy which basically need to follow-up with his family physician for further evaluation for possible peripheral neuropathy. Differential Diagnosis Differential diagnosis: Likely superficial thrombophlebitis, deep vein thrombosis of lower extremity and other ( bone fracture, muscular strain, sprain) Lab Data 02/01/25 18:23 02/01/25 18:23 Labs: Lab Results 02/01/25 Range/Units 18:23 WBC 7.2 (4.8-10.8) K/mm3 RBC 4.41 L (4.70-6.10) M/mm3 Hgb 13.8 (12.4-15.3) g/dL Hct 42.8 (37.0-46.0) % MCV 97.1 (78.0-102.0) fL MCH 31.3 H (27.0-31.0) pg MCHC 32.2 (32-36) g/dL RDW 13.3 (11.6-14.4) % Plt Count 226 (150-420) K/mm3 MPV 9.7 (8.7-11.0) fl Immature Gran % (Auto) 0.6 H (0.0-0.0) % Neut % (Auto) 67.9 (50.0-70.0) % Lymph % (Auto) 16.6 L (18.0-42.0) % [place] % (Auto) 10.4 (2.0-11.0) % Eos % (Auto) 3.9 (1.0-6.0) % Baso % (Auto) 0.6 (0.0-1.0) % Lymph # (Auto) 1.20 (1.10-4.50) K/mm3 [place] # (Auto) 0.75 (0.10-0.90) K/mm3 Eos # (Auto) 0.28 (0.02-0.50) K/mm3 Baso # (Auto) 0.04 (0.00-0.10) K/mm3 Abs Immat Gran (auto) 0.04 H (0.00-0.00) K/mm3 Absolute Neuts (auto) 4.91 (1.70-7.20) K/mm3 Absolute Nucleated RBC 0.00 (0.00-0.00) K/mm3 Nucleated RBC % 0.0 (0-0.0) % PT 10.9 (9.50-12.1) Seconds INR 1.0 APTT 29.2 (23.9-30.70) Sec D-Dimer 7.53 H (0.19-0.50) mg/L Sodium 141 (137-145) mmol/L Potassium 4.7 (3.4-5.0) mmol/L Chloride 101 (98-107) mmol/L Carbon Dioxide 31 H (22-30) mmol/L Anion Gap 9 (4-12) mmol/L BUN 11 (9-20) mg/dL Creatinine 0.94 (0.7-1.3) mg/dL Estim Creat Clear Calc 57 ml/min Estimated GFR > 60 (59 - ) Glucose 126 H (65-110) mg/dL Calculated Osmolality 293 (285-295) mOsm/kg Calcium 9.3 (8.4-10.2) mg/dL Total Bilirubin 0.6 (0.2-1.3) mg/dL AST 31 (17-59) U/L ALT 18 (6-50) U/L Alkaline Phosphatase 123 (38-126) U/L Total Protein 6.9 (6.3-8.2) g/dL Albumin 4.0 (3.5-5.1) g/dL Imaging Data Radiologist's impression: Impressions Ankle X-Ray 02/01/25 18:20 IMPRESSION: 1: NO ACUTE BONE OR JOINT ABNORMALITY IDENTIFIED. Foot X-Ray 02/01/25 18:21 Impression: 1: No acute fracture. Tibia/Fibula X-Ray 02/01/25 18:22 IMPRESSION: 1: NO ACUTE BONE OR JOINT ABNORMALITY IDENTIFIED. Discharge Plan Discharge Clinical Impression: Left leg pain, D-dimer, elevated Patient Disposition: Home Condition: Stable Instructions: Leg Pain (ED) Additional Instructions: Return if symptoms are worsening , call your family physician for appointment, take Tylenol as as needed for aches and pain, continue home medications. Go to [facility] at 7:00 a.m. for venous Doppler of the left lower extremity to rule out deep vein thrombosis. Patient Language: Citizen Of [place] Prescriptions: No Action tamsulosin 0.4 mg capsule 0.4 mg PO DAILY Qty: 90 3RF metoprolol tartrate 25 mg tablet 12.5 mg PO BID Qty: 180 3RF polyethylene glycol 3350 [Miralax] 17 gram/dose powder 17 g PO DAILY PRN (Reason: constipation) Qty: 510 3RF atorvastatin 80 mg tablet 80 mg PO HS Qty: 90 3RF aspirin 81 mg tablet,delayed release (DR/EC) 81 mg PO DAILY Qty: 90 3RF allopurinol 300 mg tablet 300 mg PO DAILY Qty: 90 3RF Follow-up/Referrals: Jazzy Medel SENIOR FRONT END ENGINEER [Primary Care Provider, Family Practice]
--- OUTSIDE RECORDS SUMMARY | 2025-02-01 18:23 | XMS_ITS | Clinical Summary ---
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 Gender Identity Not on file Sexual Orientation [...] 10:43 AM CDT Height 180.3 cm (5' 11) 11/22/2023 10:43 AM CDT Body Mass Index 29.71 11/22/2023 10:43 AM CDT Plan of Treatment Health Maintenance Due Date Last Done Comments DTaP, Tdap and Td Vaccines ( 1 - Tdap) 1961 Pneumococcal Vaccine: 50+ Ye ars (1 of 1 - PCV) 1992 Zoster Vaccines (1 of 2) 1992 Annual Medicare Wellness Visit 2007 RSV Immunization or 60+ Years (1 - 1-dose 75+ series) 2017 COVID-19 Vaccine ( - 2023-2 5 season) 2024 Meningococcal B Vaccine Aged Out No l onger eligible based on patient's age to complete this topic Meningococcal Vaccine Aged Out No evelia michael eligible based on patient's age to complete this topic RSV Immunizations Under 20 Months Aged Out No longer eligible based on patient's age to complete this topic Insurance MEDICARE Care Teams Clothing Manager Relationship Specialty Start Date End Date Karen Watkins APNP [address] [place] [address] PCP - General NURSE PRACTITIONER 11/22/23 Jaylen Mccarty MD [address] [place] [phone] Consulting Physician CLINICAL CARDIAC ELECTROPHYSIOLOGY 11/24/23 Fiorella Gilman PA-C [address], [place] [address] Physician Personal Injury Paralegal CLINICAL CARDIAC ELECTROPHYSIOLOGY 11/24/23
[2025-02-01 18:32] LABS: Hematocrit 42.8 % (37.0-46.0); Hemoglobin 13.8 g/dL (12.4-15.3); Immature Granulocyte Percent A 0.6 % (0.0-0.0); Lymphocytes Absolute Auto 1.20 K/mm3 (1.10-4.50); Mean Corpuscular HGB Conc 32.2 g/dL (32-36); Mean Corpuscular Hemoglobin 31.3 pg (27.0-31.0); Mean Corpuscular Volume 97.1 fL (78.0-102.0); Nucleated Red Blood Cells Absolute Auto 0.00 K/mm3 (0.00-0.00); Nucleated Red Blood Cells Perc 0.0 % (0-0.0); Platelet Count Result 226 K/mm3 (150-420); Red Blood Count 4.41 M/mm3 (4.70-6.10); White Blood Count 7.2 K/mm3 (4.8-10.8)
[2025-02-01 18:38] LABS: Alanine Aminotransferase 18 U/L (6-50); Albumin Level 4.0 g/dL (3.5-5.1); Alkaline Phosphatase 123 U/L (38-126); Anion Gap 9 mmol/L (4-12); Aspartate Amino Transferase 31 U/L (17-59); Bilirubin,Total 0.6 mg/dL (0.2-1.3); Blood Urea Nitrogen 11 mg/dL (9-20); Calcium 9.3 mg/dL (8.4-10.2); Carbon Dioxide 31 mmol/L (22-30); Chloride 101 mmol/L (98-107); Estimated CRCL calculation 57 ml/min; Estimated Glomerular Filt Rate > 60; Glucose 126 mg/dL (65-110); Osmolality Calculated 293 mOsm/kg (285-295); Potassium 4.7 mmol/L (3.4-5.0); Sodium 141 mmol/L (137-145); Total Protein 6.9 g/dL (6.3-8.2)
--- NOTE | 2025-02-01 18:46 | PC.NURSE ---
dr dumas in [facility] pt pulses present with hand held doppler.
[2025-02-01 18:53] LABS: INR 1.0; Partial Thromboplastin Time 29.2 Sec (23.9-30.70); Prothrombin Time 10.9 Seconds (9.50-12.1)
--- NOTE | 2025-02-01 18:57 | PC.NURSE ---
report to kush schmidt
--- NOTE | 2025-02-01 19:00 | PC.NURSE ---
ASSUMED CARE. REPORT RECEIVED FROM MARCELLUS NORRIS.
[2025-02-01] MEDS: ENOXAPARIN 100 MG/ML SYRINGE 90 MG SUB-Q (19:48)
== END 2025-02-01 20:03 | disposition home or self-care (01) ==
PROVIDERS: Emergency Provider Emergency Medicine; PCP Nurse Practitioner Family
DX: M79.605 Pain in left leg (principal); R79.1 Abnormal coagulation profile; F03.90 Unspecified dementia, unspecified severity, without behavioral disturbance, psychotic disturbance, mood disturbance, and anxiety; Z87.891 Personal history of nicotine dependence
CPT/HCPCS: 36415; 73590; 73610; 73630; 80053; 85025; 85380; 85610; 85730; 96372; 99284; J1650

== ENCOUNTER 2025-02-02 07:15 | Outpatient (CLI) | payer MEDICARE, SELFPAY ==
--- NOTE | ~2025-02-02 | US_ITS ---
EXAMINATION:US venous doppler LE LT INDICATION:Left lower extremity pain TECHNIQUE: Multiple grayscale, color flow and Doppler images of the left lower extremity deep venous systems were obtained and reviewed. COMPARISON:No prior studies for comparison. FINDINGS: The common femoral, superficial femoral and popliteal veins demonstrate normal respiratory variation, augmentation and compressibility. Color flow is also seen within the posterior tibial, peroneal, greater saphenous and profunda veins. IMPRESSION: 1: No lower extremity deep venous thrombosis. Reviewed, dictated and finalized at location O.
== END 2025-02-02 07:16 | disposition home or self-care (01) ==
PROVIDERS: PCP Nurse Practitioner Family; Visit Provider Nurse Practitioner Family
DX: M79.662 Pain in left lower leg (principal); Z01.818 Encounter for other preprocedural examination
CPT/HCPCS: 93971

== ENCOUNTER 2025-02-09 13:01 | Observation (INO) | payer MEDICARE, SELFPAY ==
[2025-02-09] VITALS (31 sets, daily range): BP systolic 101–146; BP diastolic 64–98; PULSE 98–133; RESP 16–24; TEMP 36.7; O2SAT 91–95; BMI 26.8
--- NOTE | ~2025-02-09 | XR_ITS ---
EXAMINATION: XR chest 1V portable, 02/09/2025 13:30 CDT HISTORY: left arm weakness COMPARISON: No comparisons available. Technique: Single view. Findings: Mild pulmonary venous congestion. No pneumothorax. Mild cardiomegaly. Mediastinal and hilar contours are within normal limits. Bony thorax no acute abnormality. Impression: Mild CHF Reviewed, dictated and finalized at location A. Impression: Mild CHF
--- NOTE | ~2025-02-09 | CT_ITS ---
EXAMINATION: CTA chest PE protocol DATE: 02/10/2025 10:54 INDICATION: Tachycardia. Elevated troponin. TECHNIQUE: Computed tomography (CT) pulmonary angiogram of the chest was performed with 100 mL Omnipaque-350 intravenous contrast. Additional 3D reconstructions utilizing coronal maximum intensity projection (MIP) were performed. Automated exposure control and iterative reconstruction technique were employed. The dose-length product was 1358.95 mGy-cm. COMPARISON: PET/CT dated 09/21/2023 FINDINGS: No evident pulmonary embolism. Sensitivity decreased in the smaller subsegmental pulmonary arteries due to moderate respiratory motion throughout the lungs. There are multiple new pulmonary masses and nodules scattered throughout both lungs worse in the right lower lobe measuring 2.9 x 2.8 cm, the lingula measuring 1.9 x 1.6 cm and in the left upper lobe measuring 1.5 x 1.5 cm with several additional scattered subcentimeter nodules in both lungs consistent with metastatic disease in this patient with known metastatic prostate cancer. There are very small bilateral pleural effusions. There is septal line thickening and mild groundglass opacities with dependent predominance in both lungs which could represent mild pulmonary edema, atelectasis, pneumonia or some combination thereof. There are few scattered small bilateral calcified pulmonary nodules along with calcified right hilar lymph nodes are consistent with old granulomatous disease. There are multiple additional enlarged mediastinal and bilateral hilar lymph nodes which have increased significantly in size since the prior study also consistent with progression of metastatic disease. There are couple enlarged left supraclavicular lymph nodes also include prior study at which time it demonstrated increased PSMA uptake consistent with metastatic prostate cancer. Heart size is normal. Atherosclerotic coronary artery calcific location and aortic valve calcific location. Thoracic aorta is normal in caliber with no dissection. 3 cm cyst at the upper pole of the right kidney. Calcified hepatic nodule consistent with old granulomatous disease. Moderate thoracic spondylosis. There are superior endplate Schmorl's nodes at T3 and T6 which are new since the prior study. There is suggestion of a new lytic lesion at the T8 vertebral body which is concerning for metastatic disease. IMPRESSION: 1. No pulmonary embolism. Sensitivity decreased in the smaller subsegmental pulmonary arteries due to diffuse moderate pulmonary motion artifact. 2. Dependent predominant supply thickening and mild groundglass opacities in both lungs likely, is mild pulmonary edema and atelectasis although differential includes pneumonia. 3. Interval development of multiple pulmonary nodules and masses and enlarged lymph node prominent mediastinal, bilateral hilar and left supraclavicular lymphadenopathy which is consistent with progression of metastatic prostate cancer previously seen on PET/CT dated 09/21/23. 4. Suspicious for metastatic disease. Could consider further evaluation with repeat PSMA PET for more sensitive assessment for additional metastatic disease. Reviewed, dictated and finalized at location A. IMPRESSION: 1. No pulmonary embolism. Sensitivity decreased in the smaller subsegmental pul monary arteries due to diffuse moderate pulmonary motion artifact. 2. Dependent predominant supply thickening and mild groundglass opacities in joseph th lungs likely, is mild pulmonary edema and atelectasis although differential includes pneumonia. 3. Interval development of multiple pulmonary nodules and masses and enlarged l ymph node prominent mediastinal, bilateral hilar and left supraclavicular lymph adenopathy which is consistent with progression of metastatic prostate cancer p reviously seen on PET/CT dated 09/21/23. 4. Suspicious for metastatic disease. Could consider further evaluation with re peat PSMA PET for more sensitive assessment for additional metastatic disease.
--- NOTE | ~2025-02-09 | CT_ITS ---
EXAMINATION: CT brain wo con, 02/09/2025 13:18 CDT HISTORY: left arm weakness COMPARISON: No comparisons available. Technique: Axial images obtained of the brain without contrast. One or more of the following dose reduction techniques were used: automated exposure control, adjustment of the mA and/or kV according to patient size, use of iterative reconstruction technique. 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 Remote left basal ganglia lacunar infarct. Remote right basal ganglia lacunar infarct. No acute infarct or hemorrhage. Mastoid air cells unremarkable. Moderate right chronic appearing maxillary sinusitis. No acute fracture. No significant facial or scalp soft tissue swelling evident. No radiopaque foreign body is seen. Impression: 1.No acute intracranial abnormality. Reviewed, dictated and finalized at location A. Impression: 1.No acute intracranial abnormality.
--- NOTE | 2025-02-09 13:03 | ECG_ITS ---
Test Date: 2025-02-09 13:39:29 Measurements Intervals [place] Rate: 109 P: -12 NC: 128 QRS: -55 QRSD: 104 T: 105 QT: 347 QTc: 469 Interpretive Statements SINUS TACHYCARDIA WITH OCCASIONAL VENTRICULAR PREMATURE COMPLEXES WITH OCCASIONAL SUPRAVENTRICULAR PREMATURE COMPLEXES LEFT ANTERIOR FASCICULAR BLOCK LEFT VENTRICULAR HYPERTROPHY AND ST-T CHANGE POSSIBLE ANTERIOR MYOCARDIAL INFARCTION , OF INDETERMINATE AGE BASELINE ARTIFACT- I, II, AVR, AVL ABNORMAL ECG Compared to ECG 11/21/2024 13:35:03 HEART RATE HAS INCREASED ATRIAL AND VENTRICULAR PREMATURE COMPLEXES NOW PRESENT Electronically Signed On 02-09-2025 15:39:56 CDT by Vini Nesbitt D.O.
[2025-02-09 13:35] LABS: Hematocrit 45.2 % (37.0-46.0); Hemoglobin 14.2 g/dL (12.4-15.3); Immature Granulocyte Percent A 0.5 % (0.0-0.0); Lymphocytes Absolute Auto 0.95 K/mm3 (1.10-4.50); Mean Corpuscular HGB Conc 31.4 g/dL (32-36); Mean Corpuscular Hemoglobin 31.3 pg (27.0-31.0); Mean Corpuscular Volume 99.8 fL (78.0-102.0); Nucleated Red Blood Cells Absolute Auto 0.00 K/mm3 (0.00-0.00); Nucleated Red Blood Cells Perc 0.0 % (0-0.0); Platelet Count Result 158 K/mm3 (150-420); Red Blood Count 4.53 M/mm3 (4.70-6.10); White Blood Count 9.8 K/mm3 (4.8-10.8)
[2025-02-09 13:47] LABS: Alanine Aminotransferase 27 U/L (6-50); Albumin Level 4.1 g/dL (3.5-5.1); Alkaline Phosphatase 112 U/L (38-126); Anion Gap 14 mmol/L (4-12); Aspartate Amino Transferase 39 U/L (17-59); Bilirubin,Total 1.5 mg/dL (0.2-1.3); Blood Urea Nitrogen 16 mg/dL (9-20); Calcium 9.4 mg/dL (8.4-10.2); Carbon Dioxide 22 mmol/L (22-30); Chloride 104 mmol/L (98-107); Estimated CRCL calculation 52 ml/min; Estimated Glomerular Filt Rate > 60; Glucose 172 mg/dL (65-110); Osmolality Calculated 295 mOsm/kg (285-295); Potassium 4.2 mmol/L (3.4-5.0); Sodium 140 mmol/L (137-145); Total Protein 7.2 g/dL (6.3-8.2)
[2025-02-09 13:49] LABS: INR 1.0; Partial Thromboplastin Time 29.7 Sec (23.9-30.70); Prothrombin Time 11.2 Seconds (9.50-12.1)
[2025-02-09] MEDS: SODIUM CHLORIDE 0.9% IV 500 ML 50 ML IV CONT (13:53)
[2025-02-09 13:59] LABS: Troponin I 0.071 ng/mL (0.000-0.034)
[2025-02-09 14:12] LABS: NT Pro B Type Natriuretic Pept 816 pg/mL (19.9-100)
[2025-02-09 14:33] LABS: Thyroid Stimulating Hormone 1.540 uIU/mL (0.465-4.680)
[2025-02-09 14:49] LABS: Add Urine Microscopic? YES; Appearance Urine Clear (Clear); Glucose Urine UA Negative (Negative); Leukocyte Esterase Ur Negative LEU/UL (Negative); Nitrate Urine Negative (Negative); Specific Grav Ur 1.010 (1.010-1.020)
[2025-02-09 15:07] LABS: Cannabinoid Screen Urine Negative (Negative)
[2025-02-09 16:00] LABS: Troponin I 0.063 ng/mL (0.000-0.034)
--- NOTE | 2025-02-09 18:08 | ED.AMS ---
HPI - Altered Mental Status General Chief Complaint: Altered Mental Status Stated Complaint: LEFT ARM NUMBNESS Time Seen by Provider: 02/09/25 13:02 Source: patient and family Mode of arrival: ambulatory Limitations: altered mental status History of Present Illness HPI narrative: This is a 84-year-old male that presents with family with some weakness and having altered mental status has been complaining of left arm numbness with no weakness no chest pain or shortness of breath no fever chills no abdominal pain no flank pain. The patient has no neurological deficits there is no neck stiffness no headaches no blurry vision. Patient has a history of dementia has been having leg weakness and upper arm weakness and numbness in the past. Patient has a history of prostate cancer and has been treated and receives no more treatments for his prostate cancer. Patient has a history of diabetes but currently not taking any medication hyperlipidemia. Patient has no dysuria no hematuria no nausea vomiting no diarrhea constipation. complaint: confusion Onset (ago): day(s) Timing confirmed by: family member Severity: moderate Consistency of symptoms: waxing and waning Associated symptoms: denies other symptoms Treatments prior to arrival: IV fluid Related Data Allergies Allergy/AdvReac Type Severity Reaction Status Date / Time Penicillins AdvReac FEET Verified 02/09/25 13:04 SWELLING Review of Systems Review of Systems: All systems reviewed & are unremarkable except as noted in HPI and below PMFSH Past Medical History Medical History History of prostate cancer Forgetfulness Hyperlipidemia HTN (hypertension) Surgical History Surgical History History of kidney removal Social History Social History Smoking packs per day: 1 Smoking cigarettes per day: 20.0 Years smoked: 30 Smoking pack-years: 30.00 Smoking status: Former smoker Tobacco type: cigarettes Additional smoking assessment comments: STAETS QUIT 2017~ Alcohol intake: former Alcohol use details: RARELY - COUPLE TIMES A YR Substance use: never Substance use type: does not use Do You Feel Safe in your Home?: Yes Lack of Transportation: No Lack of Food: Never True Current Housing: I Have Housing Difficulty Paying Gas/Electric Bills: No Difficulty Paying for Meds: No Currently Unemployed: No Difficulty w/ Childcare or Family Care: No Living arrangements: alone Occupation/Education: retired Gender identity (if verbalized by the patient): Male Sexual Orientation (if Verbalized by the Patient): Straight or Heterosexual Spiritual care concerns: No Exam Const: General: no acute distress Nutritional Appearance: well nourished Limitations: physical limitations HENMT: Head: normal to inspection Neck: Neck: normal visual inspection, no lymphadenopathy and no meningeal signs Chest: Chest palpation & inspection: normal inspection of the chest Resp: Effort & Inspection: normal respiratory effort Auscultation: clear to auscultation bilaterally Cardio: Rate: regular rate Rhythm: regular rhythm GI: GI Palp: Yes Soft to palpation Auscultation: normal bowel sounds : General: Yes bladder normal to palpation Urinary Catheter: Urinary Catheter: patent and draining Back/Spine/Pelvis: Back: no CVA tenderness Skin: General skin exam: normal color Rashes: no rashes Neuro: General: patient oriented x3, moves all extremities, no meningeal signs, no focal motor deficits and CN's II-XI intact bilaterally Cranial nerves: Yes Nystagmus not present Speech: normal speech Gait exam (Neuro): Normal gait present Extrem: General: normal to inspection, no clubbing, cyanosis or edema and no pedal edema Psych: Mental Status: mental status grossly normal Course Course Emergency Course: Initially with presentation stat stroke was started the patient was not having any neurological deficits, patient has a history of forgetfulness and memory problems with history of dementia. EKG shows sinus tachy, CT scan of the brain with no acute intracranial process or abnormalities. Patient had a lactic acid of 4.0 white blood cell count of 9.8 with a serum glucose of 172. His Na Stroke Scale did show 2 but after close evaluation of his past medical history the patient does have a history of forgetfulness with dementia. No other neurological deficits or were noted. His troponin was elevated his 1st troponin 0.071 subsequent was 0.063. Chest x-ray showed no acute abnormalities so mild CHF. Patient is a DNR and after speaking with power rental manager does not want any or cardio intervention perform medical management. after long discussion with the POA patient is more a comfort level and did not want transfer to any other facility patient is a DNR. Vital Signs Vital signs: Vital Signs Pulse Rate 98 02/09/25 13:02 Respiratory Rate 20 02/09/25 13:02 Blood Pressure 117/92 H 02/09/25 13:02 Pulse Oximetry 94 02/09/25 13:02 Temperature 36.7 C 02/09/25 13:03 Pulse Rate 113 H 02/09/25 20:11 Respiratory Rate 16 02/09/25 20:11 Blood Pressure 110/64 02/09/25 20:11 Pulse Oximetry 93 02/09/25 20:11 Oxygen Delivery Room Air 02/09/25 20:11 MDM - Altered Mental Status Lab Data 02/09/25 13:32 02/09/25 13:31 Labs: Lab Results 02/09/25 02/09/25 02/09/25 Range/Units 13:31 13:32 14:36 WBC 9.8 (4.8-10.8) K/mm3 RBC 4.53 L (4.70-6.10) M/mm3 Hgb 14.2 (12.4-15.3) g/dL Hct 45.2 (37.0-46.0) % MCV 99.8 (78.0-102.0) fL MCH 31.3 H (27.0-31.0) pg MCHC 31.4 L (32-36) g/dL RDW 13.5 (11.6-14.4) % Plt Count 158 (150-420) K/mm3 MPV 10.2 (8.7-11.0) fl Immature Gran % (Auto) 0.5 H (0.0-0.0) % Neut % (Auto) 81.4 H (50.0-70.0) % Lymph % (Auto) 9.7 L (18.0-42.0) % [place] % (Auto) 6.6 (2.0-11.0) % Eos % (Auto) 1.4 (1.0-6.0) % Baso % (Auto) 0.4 (0.0-1.0) % Lymph # (Auto) 0.95 L (1.10-4.50) K/mm3 [place] # (Auto) 0.65 (0.10-0.90) K/mm3 Eos # (Auto) 0.14 (0.02-0.50) K/mm3 Baso # (Auto) 0.04 (0.00-0.10) K/mm3 Abs Immat Gran (auto) 0.05 H (0.00-0.00) K/mm3 Absolute Neuts (auto) 7.99 H (1.70-7.20) K/mm3 Absolute Nucleated RBC 0.00 (0.00-0.00) K/mm3 Nucleated RBC % 0.0 (0-0.0) % PT 11.2 (9.50-12.1) Seconds INR 1.0 APTT 29.7 (23.9-30.70) Sec Sodium 140 (137-145) mmol/L Potassium 4.2 (3.4-5.0) mmol/L Chloride 104 (98-107) mmol/L Carbon Dioxide 22 (22-30) mmol/L Anion Gap 14 H (4-12) mmol/L BUN 16 (9-20) mg/dL Creatinine 1.03 (0.7-1.3) mg/dL Estim Creat Clear Calc 52 ml/min Estimated GFR > 60 (59 - ) Glucose 172 H (65-110) mg/dL Calculated Osmolality 295 (285-295) mOsm/kg Lactic Acid 4.0 H (0.4-2.0) mmol/L Calcium 9.4 (8.4-10.2) mg/dL Total Bilirubin 1.5 H (0.2-1.3) mg/dL AST 39 (17-59) U/L ALT 27 (6-50) U/L Alkaline Phosphatase 112 (38-126) U/L Troponin I 0.071 H* (0.000-0.034) ng/mL NT-Pro-B Natriuret Pep 816 H (19.9-100) pg/mL Total Protein 7.2 (6.3-8.2) g/dL Albumin 4.1 (3.5-5.1) g/dL TSH 1.540 (0.465-4.680) uIU/mL Urine Color Light yellow (Yellow) Urine Appearance Clear (Clear) Urine pH 6.5 (5.0-8.0) Ur Specific [place] 1.010 (1.010-1.020) Urine Protein Trace H (Negative) Urine Glucose (UA) Negative (Negative) Urine Ketones Negative (Negative) Ur Blood (Man) Negative (Negative) Urine Nitrate Negative (Negative) Urine Bilirubin Negative (Negative) Urine Urobilinogen 1.0 (0.2-1.0) mg/dL Leukocyte Esterase Rfl Negative (Negative) [place]/UL Urine RBC 0-2 (0-2) /hpf Urine WBC 0-3 (0-3) /hpf Ur Squamous Epith Cells Rare (Few) /hpf Amorphous Sediment Few H (None) Urine Bacteria 2+ (None) /hpf Hyaline Casts 1-2 (None) /lpf Urine Opiates Screen Negative (Negative) Urine Methadone Screen Negative (Negative) Ur Barbiturates Screen Negative (Negative) Ur Phencyclidine Scrn Negative (Negative) Ur Amphetamine Screen Negative (Negative) U Benzodiazepines Scrn Negative (Negative) Urine Cocaine Screen Negative (Negative) U Cannabinoids Screen Negative (Negative) 02/09/25 02/09/25 Range/Units 15:31 18:21 WBC (4.8-10.8) K/mm3 RBC (4.70-6.10) M/mm3 Hgb (12.4-15.3) g/dL Hct (37.0-46.0) % MCV (78.0-102.0) fL MCH (27.0-31.0) pg MCHC (32-36) g/dL RDW (11.6-14.4) % Plt Count (150-420) K/mm3 MPV (8.7-11.0) fl Immature Gran % (Auto) (0.0-0.0) % Neut % (Auto) (50.0-70.0) % Lymph % (Auto) (18.0-42.0) % [place] % (Auto) (2.0-11.0) % Eos % (Auto) (1.0-6.0) % Baso % (Auto) (0.0-1.0) % Lymph # (Auto) (1.10-4.50) K/mm3 [place] # (Auto) (0.10-0.90) K/mm3 Eos # (Auto) (0.02-0.50) K/mm3 Baso # (Auto) (0.00-0.10) K/mm3 Abs Immat Gran (auto) (0.00-0.00) K/mm3 Absolute Neuts (auto) (1.70-7.20) K/mm3 Absolute Nucleated RBC (0.00-0.00) K/mm3 Nucleated RBC % (0-0.0) % PT (9.50-12.1) Seconds INR APTT (23.9-30.70) Sec Sodium (137-145) mmol/L Potassium (3.4-5.0) mmol/L Chloride (98-107) mmol/L Carbon Dioxide (22-30) mmol/L Anion Gap (4-12) mmol/L BUN (9-20) mg/dL Creatinine (0.7-1.3) mg/dL Estim Creat Clear Calc ml/min Estimated GFR (59 - ) Glucose (65-110) mg/dL Calculated Osmolality (285-295) mOsm/kg Lactic Acid 2.7 H (0.4-2.0) mmol/L Calcium (8.4-10.2) mg/dL Total Bilirubin (0.2-1.3) mg/dL AST (17-59) U/L ALT (6-50) U/L Alkaline Phosphatase (38-126) U/L Troponin I 0.063 H* 0.068 H* (0.000-0.034) ng/mL NT-Pro-B Natriuret Pep (19.9-100) pg/mL Total Protein (6.3-8.2) g/dL Albumin (3.5-5.1) g/dL TSH (0.465-4.680) uIU/mL Urine Color (Yellow) Urine Appearance (Clear) Urine pH (5.0-8.0) Ur Specific [place] (1.010-1.020) Urine Protein (Negative) Urine Glucose (UA) (Negative) Urine Ketones (Negative) Ur Blood (Man) (Negative) Urine Nitrate (Negative) Urine Bilirubin (Negative) Urine Urobilinogen (0.2-1.0) mg/dL Leukocyte Esterase Rfl (Negative) [place]/UL Urine RBC (0-2) /hpf Urine WBC (0-3) /hpf Ur Squamous Epith Cells (Few) /hpf Amorphous Sediment (None) Urine Bacteria (None) /hpf Hyaline Casts (None) /lpf Urine Opiates Screen (Negative) Urine Methadone Screen (Negative) Ur Barbiturates Screen (Negative) Ur Phencyclidine Scrn (Negative) Ur Amphetamine Screen (Negative) U Benzodiazepines Scrn (Negative) Urine Cocaine Screen (Negative) U Cannabinoids Screen (Negative) Critical Care Time Critical Care Time Critical Care Time: No Discharge Plan Discharge Clinical Impression: Weakness, Abnormal laboratory test Urinary tract infection Qualifiers: Urinary tract infection type: site unspecified Hematuria presence: without hematuria Qualified Code(s): N39.0 - Urinary tract infection, site not specified Patient Disposition: Acute Care Hospital Condition: Guarded Prognosis Time of Disposition: 19:15
[2025-02-09 19:08] LABS: Troponin I 0.068 ng/mL (0.000-0.034)
[2025-02-09] MEDS: levoFLOXacin 500 MG/D5W 100 ML 500 MG/100 ML BAG 100 MG IVPB (19:20)
--- NOTE | 2025-02-09 19:30 | PC.NURSE ---
Gave pt ham sandwich, chips, fruit cup, and drink.
--- NOTE | 2025-02-09 19:46 | PC.NURSE ---
ERP aware of vital signs. No new orders at this time.
--- NOTE | 2025-02-09 19:58 | PC.NURSE ---
Son, MEERA Jordan, is out of town. His former , Ashok, will be the contact, . Please call her with any concerns or when pt is ready for discharge.
--- NOTE | 2025-02-09 19:59 | PC.NURSE ---
Spoke with JR Davis in ED, Pt to be admitted to 207 with DX of UTI. MD aware of elevated troponin x2. Spoke with MD, states elevated troponin may be d/t stress. Labs to be redrawn in AM. Awaiting Patient arrival.
--- NOTE | 2025-02-09 20:42 | ADMGEN ---
This patient, Dion Nur, was admitted to 2nd Floor Room 207-1. Patient oriented to hospital policies and general routines including ID bracelet, bed and alarms, visiting hours, pain management, procedures, bathroom and other care routines, personal items, smoking policy, room service/diet, and visiting hours. Information on how to activate the Rapid Response Team has been discussed. Patient are encouraged to report perceived risks to care and to ask questions if they do not understand what they are told or what they should do.
[2025-02-09] MEDS: SODIUM CHLORIDE 0.9% IV 1,000 ML 100 ML IV CONT (21:02)
[2025-02-10] VITALS (7 sets, daily range): BP systolic 108–134; BP diastolic 64–96; PULSE 56–117; RESP 16–18; TEMP 36.6–37.2; O2SAT 91–95
[2025-02-10 06:19] LABS: Hematocrit 38.9 % (37.0-46.0); Hemoglobin 12.5 g/dL (12.4-15.3); Immature Granulocyte Percent A 0.4 % (0.0-0.0); Lymphocytes Absolute Auto 0.82 K/mm3 (1.10-4.50); Mean Corpuscular HGB Conc 32.1 g/dL (32-36); Mean Corpuscular Hemoglobin 31.4 pg (27.0-31.0); Mean Corpuscular Volume 97.7 fL (78.0-102.0); Nucleated Red Blood Cells Absolute Auto 0.00 K/mm3 (0.00-0.00); Nucleated Red Blood Cells Perc 0.0 % (0-0.0); Platelet Count Result 155 K/mm3 (150-420); Red Blood Count 3.98 M/mm3 (4.70-6.10); White Blood Count 7.8 K/mm3 (4.8-10.8)
[2025-02-10 06:28] LABS: Alanine Aminotransferase 15 U/L (6-50); Albumin Level 3.4 g/dL (3.5-5.1); Alkaline Phosphatase 90 U/L (38-126); Anion Gap 7 mmol/L (4-12); Aspartate Amino Transferase 27 U/L (17-59); Bilirubin,Total 1.1 mg/dL (0.2-1.3); Blood Urea Nitrogen 12 mg/dL (9-20); Calcium 8.8 mg/dL (8.4-10.2); Carbon Dioxide 25 mmol/L (22-30); Chloride 108 mmol/L (98-107); Estimated CRCL calculation 62 ml/min; Estimated Glomerular Filt Rate > 60; Glucose 107 mg/dL (65-110); Osmolality Calculated 289 mOsm/kg (285-295); Potassium 3.9 mmol/L (3.4-5.0); Sodium 140 mmol/L (137-145); Total Protein 6.0 g/dL (6.3-8.2)
[2025-02-10] MEDS: SODIUM CHLORIDE 0.9% IV 1,000 ML 100 ML IV CONT (06:37)
[2025-02-10 06:56] LABS: Troponin I 0.078 ng/mL (0.000-0.034)
[2025-02-10 07:03] LABS: NT Pro B Type Natriuretic Pept 690 pg/mL (19.9-100)
[2025-02-10 08:20] LABS: Magnesium 2.0 mg/dL (1.6-2.3)
--- NOTE | 2025-02-10 09:00 | PC.NURSE ---
speech aware of need for eval. pt will be here tuesday for eval.
[2025-02-10] MEDS: ENOXAPARIN 100 MG/ML SYRINGE 85 MG SUB-Q ×2 (09:05→20:05)
[2025-02-10] MEDS: ASPIRIN 81 MG ENTERIC TABLET PO (09:07)
[2025-02-10] MEDS: DOXYCYCLINE HYCLATE 100 MG TABLET PO ×2 (09:07→20:06)
[2025-02-10] MEDS: METOPROLOL TARTRATE 12.5 MG TABLET PO ×2 (09:07→20:06)
[2025-02-10] MEDS: TAMSULOSIN HCL 0.4 MG CAPSULE PO (09:07)
--- NOTE | 2025-02-10 10:19 | P.HP_ITS ---
H&P: HPI History of Present Illness Date/Time: 02/10/25 10:19 Chief Complaint: Left arm numbness Narrative: Patient is an 84-year-old male who was brought in for further evaluation by family due to complaints of left arm numbness. Patient's family reports he does have a past medical history of CVA in 2019 at which time he has had difficulty with speech since, post treatment prostate cancer, HLD, nephrectomy, HTN. initially upon arrival patient was called as code stroke due to left arm numbness and difficulty with speech sent for stat CT head however family reported that patient has no change in his speech pattern this was his baseline. patient was recently seen in the emergency department due to left lower extremity pain at which time his D-dimer was significantly elevated he was given a full dose of Lovenox with a script for a venous Doppler which he had performed at [facility] that showed no DVT. patient alert oriented moving all other extremities appropriately however does have patient difficulty finding words requested I speak with his sons regarding his care. In the Ed: stat CT head did showed an old large remote left frontal infarct, old left basilar ganglia lacunar infarct, and left right basal can be infarct however no acute infarct hemorrhaging noted. patient was found to have elevated troponins initial troponin in the emergency department was 0.071 with tachycardia ranging between 115-120. patient's BNP was mildly elevated CXR showing mild CHF. the ER physician had spoke to patient's [id number] son Darwin about possible transfer for cardiac evaluation and reported they did not want any extensive diagnostic or interventional treatment requested just medical management. patient was admitted to the medical unit 02/10/2025: Assumed Care patient alert and oriented x2 was able to answer some questions appropriately but having difficulty finding his words. He did deny any chest pain, shortness a breath, nausea, vomiting but did report some mild left arm numbness. A follow-up troponin was 0.078. evaluated patient's chart and previous D-dimer was greater than 7 and repeat today was greater than 14 so I did send patient down for a stat CTA of chest to rule out PE. I did call patient's POA and discussed about neurological findings as well as cardiac findings and if they wanted any further diagnostic testing to rule in or out another acute stroke at which time they requested patient stay at [facility] and did not want any further diagnostic testing for a new stroke. Darwin ESTES also just wanted medical management for the elevated troponins was okay if patient needs blood thinners pending results of CTA. Review of Systems Review of Systems: All systems reviewed & are unremarkable except as noted in HPI and below ROS unobtainable: Yes unobtainable due to medical condition (aphasia) [facility] Past Medical History Medical History (Updated 02/10/25 @ 10:49 by Jody Ogden APRN) BPH (benign prostatic hyperplasia) Type 2 diabetes mellitus CVA, old, aphasia History of prostate cancer Forgetfulness Hyperlipidemia HTN (hypertension) Surgical History Surgical History History of kidney removal Social History Social History Smoking packs per day: 1 Smoking cigarettes per day: 20.0 Years smoked: 30 Smoking pack-years: 30.00 Smoking status: Former smoker Tobacco type: cigarettes Second hand tobacco smoke exposure: No Additional smoking assessment comments: STAETS QUIT 2017~ Alcohol intake: former Alcohol use details: RARELY - COUPLE TIMES A YR Substance use: never Substance use type: does not use Do You Feel Safe in your Home?: Yes Lack of Transportation: No Lack of Food: Never True Current Housing: I Have Housing Concerned About Future Housing: No Difficulty Paying Gas/Electric Bills: No Difficulty Paying for Meds: No Currently Unemployed: No Education: Trade/Vocational Certificate Difficulty w/ Childcare or Family Care: No Living arrangements: alone Occupation/Education: retired Gender identity (if verbalized by the patient): Male Sexual Orientation (if Verbalized by the Patient): Straight or Heterosexual Spiritual care concerns: No Meds Home Medications and Allergies Home Medications ?Medication ?Instructions ?Recorded ?Confirmed ?Type aspirin 81 mg tablet,delayed 81 mg PO DAILY #90 tabs 0 11/28/24 02/09/25 Rx release atorvastatin 80 mg tablet 80 mg PO HS #90 tabs 5 02/09/25 Rx metoprolol tartrate 25 mg tablet 12.5 mg (1/2 x 25 mg) PO BID #180 11/28/24 02/09/25 Rx tabs polyethylene glycol 3350 17 17 g PO DAILY PRN constipa tion 11/28/24 02/09/25 Rx gram/dose oral powder (Miralax) #510 grams tamsulosin 0.4 mg capsule 0.4 mg PO DAILY #90 caps 02/09/25 Rx Allergies Allergy/AdvReac Type Severity Reaction Status Date / Time Penicillins AdvReac FEET Verified 02/09/25 13:04 SWELLING Vital Signs Vital Signs - 24 hr 02/09/25 13:02 02/09/25 13:03 02/09/25 13:10 Temperature 98.0 F Pulse Rate 98 98 98 Respiratory Rate 20 20 Blood Pressure 117/92 H 117/82 Pulse Oximetry 94 94 Oxygen Delivery Room Air 02/09/25 13:23 02/09/25 13:48 02/09/25 14:00 Temperature Pulse Rate 108 H 114 H Respiratory Rate 22 H Blood Pressure Pulse Oximetry 94 92 94 Oxygen Delivery Room Air Room Air 02/09/25 14:01 02/09/25 14:15 02/09/25 14:16 Temperature Pulse Rate 106 H 118 H 115 H Respiratory Rate 20 20 Blood Pressure 139/84 139/77 Pulse Oximetry 93 92 92 Oxygen Delivery Room Air Room Air 02/09/25 14:30 02/09/25 14:34 02/09/25 14:46 Temperature Pulse Rate 133 H 105 H Respiratory Rate 20 Blood Pressure 101/80 131/93 H Pulse Oximetry 93 Oxygen Delivery Room Air 02/09/25 14:50 02/09/25 15:00 02/09/25 15:01 Temperature Pulse Rate 109 H 109 H Respiratory Rate 20 Blood Pressure 146/98 H Pulse Oximetry 91 93 92 Oxygen Delivery Room Air 02/09/25 15:15 02/09/25 15:16 02/09/25 15:30 Temperature Pulse Rate 107 H 107 H 101 H Respiratory Rate 20 Blood Pressure 141/85 H Pulse Oximetry 92 92 92 Oxygen Delivery Room Air 02/09/25 15:45 02/09/25 16:00 02/09/25 17:04 Temperature Pulse Rate 110 H 104 H 108 H Respiratory Rate 20 20 Blood Pressure 128/70 117/66 Pulse Oximetry 94 93 Oxygen Delivery Room Air Room Air 02/09/25 17:05 02/09/25 17:16 02/09/25 17:46 Temperature Pulse Rate 112 H 105 H 106 H Respiratory Rate 20 17 17 Blood Pressure 117/66 116/82 125/81 Pulse Oximetry 94 Oxygen Delivery Room Air 02/09/25 18:01 02/09/25 19:15 02/09/25 20:10 Temperature Pulse Rate 103 H 104 H 113 H Respiratory Rate 19 22 H 24 H Blood Pressure 104/74 110/64 Pulse Oximetry 93 Oxygen Delivery 02/09/25 20:11 02/09/25 20:15 02/09/25 20:34 Temperature Pulse Rate 113 H 124 H 122 H Respiratory Rate 16 23 H 18 Blood Pressure 110/64 105/73 Pulse Oximetry 93 94 95 Oxygen Delivery Room Air Room Air 02/09/25 20:49 02/10/25 00:00 02/10/25 08:00 Temperature 98.1 F 98.1 F Pulse Rate 122 H 117 H 56 L Respiratory Rate 18 18 16 Blood Pressure 108/96 H 133/71 Pulse Oximetry 95 95 91 Oxygen Delivery Room Air Room Air Room Air 02/10/25 09:07 Temperature Pulse Rate 56 L Respiratory Rate Blood Pressure Pulse Oximetry Oxygen Delivery Exam Const: General: comfortable and no acute distress Other: older pleasant male looks stated age HENMT: Ears: TM's normal bilaterally Face/Nose/Sinus: Normal nares present Mouth: Yes moist mucous membranes Eyes: General: appearance normal, both eyes and all related structures Sclera: sclerae normal Pupils: Equal, round and reactive pupils present Neck: Neck: supple and no JVD Resp: Effort & Inspection: normal respiratory effort Auscultation: crackles bilateral (scant) throughout Cardio: Rate: tachycardic GI: GI Palp: Yes Soft to palpation Auscultation: normal bowel sounds Skin: General skin exam: normal color Wounds: no wounds Neuro: General: oriented to person, oriented to place, gait normal and Unable to assess gait Cranial nerves: Yes facial symmetry Cognition (Neuro): abnormal cognition Speech: aphasia Gait exam (Neuro): Unable to assess gait Motor exam (neuro): 5/5 motor strength present throughout and Normal motor muscle tone present throughout Extrem: General: normal to inspection Psych: Affect: normal affect H&P: Results Labs Labs: Short CBC 02/09/25 02/10/25 Range/Units 13:32 05:44 WBC 9.8 7.8 (4.8-10.8) K/mm3 Hgb 14.2 12.5 (12.4-15.3) g/dL Hct 45.2 38.9 (37.0-46.0) % Plt Count 158 155 (150-420) K/mm3 BMP 02/09/25 02/10/25 13:31 05:44 Sodium 140 140 Potassium 4.2 3.9 Chloride 104 108 H Carbon Dioxide 22 25 BUN 16 12 Creatinine 1.03 0.85 Glucose 172 H 107 Calcium 9.4 8.8 Cardiac Enzymes 02/09/25 02/09/25 02/09/25 Range/Units 13:31 15:31 18:21 Troponin I 0.071 H* 0.063 H* 0.068 H* (0.000-0.034) ng/mL 02/10/25 Range/Units 05:44 Troponin I 0.078 H* (0.000-0.034) ng/mL Liver Function 02/09/25 02/10/25 Range/Units 13:31 05:44 Total Bilirubin 1.5 H 1.1 (0.2-1.3) mg/dL AST 39 27 (17-59) U/L ALT 27 15 (6-50) U/L Alkaline Phosphatase 112 90 (38-126) U/L Albumin 4.1 3.4 L (3.5-5.1) g/dL Urine 02/09/25 Range/Units 14:36 Urine Color Light yellow (Yellow) Urine Appearance Clear (Clear) Urine pH 6.5 (5.0-8.0) Ur Specific [place] 1.010 (1.010-1.020) Urine Protein Trace H (Negative) Urine Glucose (UA) Negative (Negative) Assessment and Plan Assessment and plan (1) CVA, old, aphasia: Code(s): I69.320 - Aphasia following cerebral infarction Status: Acute Assessment and Plan: patient reports previous CVA 2020 causing aphasia, CT head showed chronic large left frontal infarct, old basal ganglia lacunar current infarct, old right basal longer infarct. spoke with family regarding the need for potential transfer if they wanted further diagnostic testing with CTA and MRI with Neurology consult to evaluate for any new acute infarct. Darwin ESTES would just like medical management and no aggressive diagnostic or interventional treatment. * continued patient's ASA and atorvastatin * PT/OT / ST pending (2) NSTEMI (non-ST elevated myocardial infarction): Code(s): I21.4 - Non-ST elevation (NSTEMI) myocardial infarction Status: Acute Assessment and Plan: patient was left arm numbness initial troponins elevated trending flat patient's family did not want transfer for further cardiac evaluation or interventional treatment would just like medical management. troponin peaked at 0.078. patient had previous left lower extremity pain D-dimer was greater than 7 had venous Doppler negative for DVT follow-up D-dimer on this admission was 14 CTA pending * full-dose Lovenox 1 mg/kg b.i.d. for 48 hours * resume patient's metoprolol * continued ASA and atorvastatin * ordered Echo if take available will do inpatient however can also do outpatient * continuous cardiac monitoring (3) Left arm numbness: Code(s): R20.0 - Anesthesia of skin Status: Acute Assessment and Plan: SEE Above #1 and 2 (4) Sinusitis chronic, frontal: Code(s): J32.1 - Chronic frontal sinusitis Status: Acute Assessment and Plan: CT head showing chronic sinusitis * oral doxycycline patient allergic to PCN * Claritin at night (5) HTN (hypertension): Code(s): I10 - Essential (primary) hypertension Status: Acute Assessment and Plan: * continue metoprolol * monitor BP per unit protocol (6) Hyperlipidemia: Code(s): E78.5 - Hyperlipidemia, unspecified Status: Acute Assessment and Plan: * continue patient's atorvastatin 80 mg (7) Type 2 diabetes mellitus: Code(s): E11.9 - Type 2 diabetes mellitus without complications Status: Acute Assessment and Plan: patient with previous history of diabetes was on metformin but not currently taking has not been taking since last May * A1c pending (8) CHF (congestive heart failure): Code(s): I50.9 - Heart failure, unspecified Status: Acute Assessment and Plan: CXR showing mild CHF with elevated BNP no previous history but does not appear to be in exacerbation not requiring any oxygen * echo ordered will get if available will still inpatient otherwise can get outpatient (9) BPH (benign prostatic hyperplasia): Code(s): N40.0 - Benign prostatic hyperplasia without lower urinary tract symptoms Status: Acute Assessment and Plan: * continue patient's Flomax * bladder scan p.r.n. Plan Code status: DNR/DNI DVT prophylaxis: Lovenox 1mg/kg BID Stress ulcer prophylaxis: NA PT/OT notes: PT/OT/ST pending Disposition: patient admitted for medical management NSTEMI and possible CVA family does not want any extensive diagnostic testing or interventions just medical management. patient to have PT/OT / ST for further discharge planning needs. Quality VTE Prophylaxis VTE prophylaxis: pharmacologic ordered -Patient's previous records reviewed on admission -ER notes reviewed in detail on admission -discussed all findings and current treatment plan with patient/Family/POA -Consultations reviewed for recommendations -Patient's disposition for safe discharge discussed with bilingual patient support caseworker Dictation performed by [employer] direct speech recognition software, therefore barker operator variants and typographical errors may occur. Hospitalist [facility] Advance Care Plan I have confirmed that the patient's Advanced Care Plan is present, code status is documented, or surrogate decision maker is listed in patient medical record.: Yes Medication Reconciliation I have utilized all available resources to obtain, update and review the patients current medications (includes all prescriptions, OTC, herbals, cannabis, and nutritional supplements).: Yes The patient is not eligible for med reconciliation; the patient is in a emergent medical situation where delaying treatment would jeopardize the patients health.: No
[2025-02-10 11:17] LABS: Hemoglobin A1C 6.1 % (<5.7)
[2025-02-10] MEDS: ACETAMINOPHEN 325 MG TABLET 650 MG PO (20:05)
[2025-02-10] MEDS: ATORVASTATIN 40 MG TABLET 80 MG PO (20:06)
[2025-02-10] MEDS: LORATADINE 10 MG TABLET PO (20:06)
[2025-02-11] VITALS (9 sets, daily range): BP systolic 95–134; BP diastolic 56–83; PULSE 64–117; RESP 16–20; TEMP 36.1–36.8; O2SAT 91–96
[2025-02-11 06:54] LABS: Hematocrit 39.2 % (37.0-46.0); Hemoglobin 12.8 g/dL (12.4-15.3); Immature Granulocyte Percent A 0.6 % (0.0-0.0); Lymphocytes Absolute Auto 0.89 K/mm3 (1.10-4.50); Mean Corpuscular HGB Conc 32.7 g/dL (32-36); Mean Corpuscular Hemoglobin 31.3 pg (27.0-31.0); Mean Corpuscular Volume 95.8 fL (78.0-102.0); Nucleated Red Blood Cells Absolute Auto 0.00 K/mm3 (0.00-0.00); Nucleated Red Blood Cells Perc 0.0 % (0-0.0); Platelet Count Result 144 K/mm3 (150-420); Red Blood Count 4.09 M/mm3 (4.70-6.10); White Blood Count 5.4 K/mm3 (4.8-10.8)
[2025-02-11 07:07] LABS: Alanine Aminotransferase 14 U/L (6-50); Albumin Level 3.3 g/dL (3.5-5.1); Alkaline Phosphatase 87 U/L (38-126); Anion Gap 6 mmol/L (4-12); Aspartate Amino Transferase 24 U/L (17-59); Bilirubin,Total 1.2 mg/dL (0.2-1.3); Blood Urea Nitrogen 11 mg/dL (9-20); Calcium 8.9 mg/dL (8.4-10.2); Carbon Dioxide 25 mmol/L (22-30); Chloride 108 mmol/L (98-107); Estimated CRCL calculation 56 ml/min; Estimated Glomerular Filt Rate > 60; Glucose 106 mg/dL (65-110); Magnesium 2.0 mg/dL (1.6-2.3); Osmolality Calculated 287 mOsm/kg (285-295); Potassium 3.9 mmol/L (3.4-5.0); Sodium 139 mmol/L (137-145); Total Protein 6.0 g/dL (6.3-8.2)
[2025-02-11] MEDS: ENOXAPARIN 100 MG/ML SYRINGE 85 MG SUB-Q ×2 (08:31→20:44)
[2025-02-11] MEDS: ASPIRIN 81 MG ENTERIC TABLET PO (08:32)
[2025-02-11] MEDS: METOPROLOL TARTRATE 12.5 MG TABLET PO ×2 (08:32→20:43)
[2025-02-11] MEDS: TAMSULOSIN HCL 0.4 MG CAPSULE PO (08:33)
[2025-02-11] MEDS: DOXYCYCLINE HYCLATE 100 MG TABLET PO ×2 (08:33→20:43)
--- NOTE | 2025-02-11 12:27 | P.PNIM_ITS ---
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 spoke with family regarding the need for potential transfer if they wanted further diagnostic testing with CTA and MRI with Neurology consult to evaluate for any new acute infarct. Darwin ESTES would just like medical management and no aggressive diagnostic or interventional t reatment. * continued patient's ASA and atorvastatin * PT/OT / ST pending * CTA reviewed showed progression of metastatic prostate cancer (2) NSTEMI (non-ST elevated myocardial infarction): Code(s): I21.4 - Non-ST elevation (NSTEMI) myocardial infarction Status: Acute Assessment and Plan: patient was left arm numbness initial troponins elevated trending flat patient's family did not want transfer for further cardiac evaluation or interve ntional treatment would just like medical management. troponin peaked at 0.078. patient had previous left lower extremity pain D-dimer was greater than 7 had venous Doppler negative for DVT follow-up D-dimer on this admission was 14 CTA pending * full-dose Lovenox 1 mg/kg b.i.d. for 48 hours * resume patient's metoprolol * continued ASA and atorvastatin * ordered Echo if take available will do inpatient however can also do outpatient * continuous cardiac monitoring (3) Left arm numbness: Code(s): R20.0 - Anesthesia of skin Status: Acute Assessment and Plan: likely secondary to lymphadenopathy from progression of his metastatic prostate cancer CTA reviewed will discuss with patient and family regarding findings. Patient may benefit from palliative care unsure if they plan on any further cancer treatment SEE Above #1 and 2 (4) Sinusitis chronic, frontal: Code(s): J32.1 - Chronic frontal sinusitis Status: Acute Assessment and Plan: CT head showing chronic sinusitis * oral doxycycline patient allergic to PCN * Claritin at night (5) HTN (hypertension): Code(s): I10 - Essential (primary) hypertension Status: Acute Assessment and Plan: * continue metoprolol * monitor BP per unit protocol (6) Hyperlipidemia: Code(s): E78.5 - Hyperlipidemia, unspecified Status: Acute Assessment and Plan: * continue patient's atorvastatin 80 mg (7) Type 2 diabetes mellitus: Code(s): E11.9 - Type 2 diabetes mellitus without complications Status: Acute Assessment and Plan: patient with previous history of diabetes was on metformin but not currently taking has not been taking since last May * A1c pending L (8) CHF (congestive heart failure): Code(s): I50.9 - Heart failure, unspecified Status: Acute Assessment and Plan: CXR showing mild CHF with elevated BNP no previous history but does not appear to be in exacerbation not requiring any oxygen * echo ordered will get if available will still inpatient otherwise can get outpatient (9) BPH (benign prostatic hyperplasia): Code(s): N40.0 - Benign prostatic hyperplasia without lower urinary tract symptoms Status: Acute Assessment and Plan: * continue patient's Flomax * bladder scan p.r.n. Plan Code status: DNR/DNI DVT prophylaxis: Lovenox 1mg/kg BID Stress ulcer prophylaxis: NA PT/OT notes: PT/OT/ST pending Disposition: patient admitted for medical management NSTEMI and possible CVA family does not want any extensive diagnostic testing or interventions just medical management. patient to have PT/OT / ST for further discharge planning needs. May benefit from palliative care will discuss with family ans patient Time Spent With Patient Time with patient: 15 - 25 minutes Subjective Date/time seen: 02/11/25 12:27 Interval history: Patient admitted for conservative treatment and medical management of NSTEMI and LT arm numbness. 02/11/2025: Patient up in chair feeling better today but still endorsing mild LT arm tingling and numbness likely secondary to lymphedonapthy from progression of his metastatic prostate cancer. Denies CP and SOB. Review of Systems Review of Systems: All systems reviewed & are unremarkable except as noted in HPI and below ROS unobtainable: Yes unobtainable due to medical condition (aphasia) Exam Const: General: comfortable and no acute distress Orientation/consciousness: oriented to person and oriented to place Other: older pleasant male looks stated age HENMT: Ears: TM's normal bilaterally Face/Nose/Sinus: Normal nares present Mouth: Yes moist mucous membranes Eyes: General: appearance normal, both eyes and all related structures Sclera: sclerae normal Pupils: Equal, round and reactive pupils present Neck: Neck: supple and no JVD Resp: Effort & Inspection: normal respiratory effort Auscultation: crackles bilateral (scant) throughout Cardio: Rate: tachycardic GI: Auscultation: normal bowel sounds Skin: General skin exam: normal color Wounds: no wounds Neuro: General: oriented to person, oriented to place, gait normal and Unable to assess gait Cranial nerves: Yes Equal, round and reactive pupils present and Yes facial symmetry Cognition (Neuro): abnormal cognition Speech: ap hasia Gait exam (Neuro): Unable to assess gait Motor exam (neuro): 5/5 motor strength present throughout and Normal motor muscle tone present thro ughout Extrem: General: normal to inspection Psych: Affect: normal affect Objective Data Vital Signs Vital Signs: Vital Signs - 24 hr 02/10/25 16:00 02/10/25 16:00 02/10/25 20:00 Temperature 98.9 F Pulse Rate 90 80 95 Respiratory Rate 16 16 Blood Pressure 113/67 Pulse Oximetry 92 94 Oxygen Delivery Room Air Room Air 02/10/25 20:00 02/10/25 20:00 02/10/25 20:06 Temperature 97.8 F Pulse Rate 95 95 95 Respiratory Rate 16 Blood Pressure 134/83 Pulse Oximetry 94 Oxygen Delivery Room Air 02/11/25 00:00 02/11/25 00:00 02/11/25 04:00 Temperature 97.8 F Pulse Rate 95 95 72 Respiratory Rate 16 Blood Pressure 134/83 Pulse Oximetry 94 Oxygen Delivery Room Air 02/11/25 04:00 02/11/25 07:45 02/11/25 07:45 Temperature 98.1 F 97.8 F Pulse Rate 72 93 64 Respiratory Rate 16 16 Blood Pressure 122/76 134/79 Pulse Oximetry 96 91 Oxygen Delivery Room Air Room Air 02/11/25 08:32 02/11/25 12:00 02/11/25 12:00 Temperature 98.2 F Pulse Rate 94 98 103 H Respiratory Rate 16 Blood Pressure 95/56 L Pulse Oximetry 93 Oxygen Delivery Room Air Intake/Output Intake/Output: Intake & Output 02/08/25 02/09/25 02/10/25 02/11/25 23:59 23:59 23:59 23:59 Intake Total 600 3290 940 Output Total 1475 750 Balance 600 1815 190 Meds/Results Medications: Active Medications Generic Name Dose Route Start Last Admin Trade Name Freq PRN Reason Stop Dose Admin Acetaminophen 650 mg 02/09/25 19:21 02/10/25 20:05 Acetaminophen 325 Mg Tablet PO 650 mg Q4H PRN Administration Mild Pain (1-3) or Fever Aspirin 81 mg 02/10/25 09:00 02/11/25 08:32 Aspirin 81 Mg Enteric Tablet PO 81 mg DAILY ARIANNE Administration Atorvastatin Calcium 80 mg 02/10/25 21:00 02/10/25 20:06 Atorvastatin 40 Mg Tablet PO 80 mg HS ARIANNE Administration Doxycycline Hyclate 100 mg 02/10/25 09:00 02/11/25 08:33 Doxycycline Hyclate 100 Mg Tablet PO 100 mg Q12HR ARIANNE Administration Enoxaparin Sodium 85 mg 02/10/25 09:00 02/11/25 08:31 Enoxaparin 100 Mg/Ml Syringe SUB-Q 85 mg Q12HR ARIANNE Administration Loratadine 10 mg 02/10/25 21:00 02/10/25 20:06 Loratadine 10 Mg Tablet PO 10 mg HS ARIANNE Administration Metoprolol Tartrate 12.5 mg 02/10/25 09:00 02/11/25 08:32 Metoprolol Tartrate 12.5 Mg Tablet PO 12.5 mg Q12HR ARIANNE Administration Ondansetron HCl 4 mg 02/10/25 08:08 Ondansetron Inj 4 Mg/2 Ml Vial IV PUSH Q6H PRN Nausea And Vomiting Perflutren Lipid Microsphere 0 ml 02/10/25 08:42 Perflutren Lipid Microspheres 1.5 Ml Vial Diluted To 10 Ml Total Volume IV PUSH 02/13/25 08:42 ONCE PRN adequate visualization Protocol Polyethylene Glycol 17 gm 02/10/25 08:07 Polyethylene Glycol 3350 17 Gm Powd.Pack PO DAILY PRN Constipation Tamsulosin HCl 0.4 mg 02/10/25 09:00 02/11/25 08:33 Tamsulosin Hcl 0.4 Mg Capsule PO 0.4 mg DAILY ARIANNE Administration Radiology Results: ITS Impressions Head CT 02/09/25 13:25 Impression: 1.No acute intracranial abnormality. Chest X-Ray 02/09/25 13:40 Impression: Mild CHF Chest CTA 02/10/25 11:15 IMPRESSION: 1. No pulmonary embolism. Sensitivity decreased in the smaller subsegmental pulmonary arteries due to diffuse moderate pulmonary motion artifact. 2. Dependent predominant supply thickening and mild groundglass opacities in both lungs likely, is mild pulmonary edema and atelectasis although differential includes pneumonia. 3. Interval development of multiple pulmonary nodules and masses and enlarged lymph node prominent mediastinal, bilateral hilar and left supraclavicular lymphadenopathy which is consistent with progression of metastatic prostate cancer previously seen on PET/CT dated 09/21/23. 4. Suspicious for metastatic disease. Could consider further evaluation with repeat PSMA PET for more sensitive assessment for additional metastatic disease. Labs Labs: Laboratory Results - last 24 hr 02/11/25 06:38 WBC 5.4 RBC 4.09 L Hgb 12.8 Hct 39.2 MCV 95.8 MCH 31.3 H MCHC 32.7 RDW 13.7 Plt Count 144 L MPV 9.8 Immature Gran % (Auto) 0.6 H Neut % (Auto) 67.7 Lymph % (Auto) 16.4 L [place] % (Auto) 10.5 Eos % (Auto) 4.2 Baso % (Auto) 0.6 Lymph # (Auto) 0.89 L [place] # (Auto) 0.57 Eos # (Auto) 0.23 Baso # (Auto) 0.03 Abs Immat Gran (auto) 0.03 H Absolute Neuts (auto) 3.69 Absolute Nucleated RBC 0.00 Nucleated RBC % 0.0 Sodium 139 Potassium 3.9 Chloride 108 H Carbon Dioxide 25 Anion Gap 6 BUN 11 Creatinine 0.95 Estim Creat Clear Calc 56 Estimated GFR > 60 Glucose 106 Calculated Osmolality 287 Calcium 8.9 Magnesium 2.0 Total Bilirubin 1.2 AST 24 ALT 14 Alkaline Phosphatase 87 Total Protein 6.0 L Albumin 3.3 L Quality VTE Prophylaxis VTE prophylaxis: pharmacologic ordered -Patient's previous records reviewed on admission -ER notes reviewed in detail on admission -discussed all findings and current treatment plan with patient/Family/POA -Consultations reviewed for recommendations -Patient's disposition for safe discharge discussed with shoe caser Dictation performed by [employer] direct speech recognition software, therefore multiple resaw operator variants and typographical errors may occur. Hospitalist MIPS Advance Care Plan I have confirmed that the patient's Advanced Care Plan is present, code status is documented, or surrogate decision maker is listed in patient medical record.: Yes Medication Reconciliation I have utilized all available resources to obtain, update and review the patients current medications (includes all prescriptions, OTC, herbals, cannabis, and nutritional supplements).: Yes The patient is not eligible for med reconciliation; the patient is in a emergent medical situation where delaying treatment would jeopardize the patients health.: No
--- NOTE | 2025-02-11 13:11 | PCSTNOTE ---
Please refer to the Bedside Swallow Evaluation in the EMR. Please note, silent aspiration cannot be ruled out at bedside.
--- NOTE | 2025-02-11 19:05 | PC.NURSE ---
report from maritza michel rn. resumed care of pt
[2025-02-11] MEDS: LORATADINE 10 MG TABLET PO (20:43)
[2025-02-11] MEDS: ATORVASTATIN 40 MG TABLET 80 MG PO (20:43)
--- NOTE | 2025-02-11 22:51 | PC.NURSE ---
report to kush malik
[2025-02-12] VITALS: BP 107/66; PULSE 72; PULSE 93; RESP 16; TEMP 37.2; O2SAT 95
[2025-02-12 04:00] VITALS: PULSE 83; RESP 16; O2SAT 95
[2025-02-12 05:28] LABS: Hematocrit 37.9 % (37.0-46.0); Hemoglobin 12.4 g/dL (12.4-15.3); Immature Granulocyte Percent A 0.7 % (0.0-0.0); Lymphocytes Absolute Auto 1.02 K/mm3 (1.10-4.50); Mean Corpuscular HGB Conc 32.7 g/dL (32-36); Mean Corpuscular Hemoglobin 31.2 pg (27.0-31.0); Mean Corpuscular Volume 95.2 fL (78.0-102.0); Nucleated Red Blood Cells Absolute Auto 0.00 K/mm3 (0.00-0.00); Nucleated Red Blood Cells Perc 0.0 % (0-0.0); Platelet Count Result 151 K/mm3 (150-420); Red Blood Count 3.98 M/mm3 (4.70-6.10); White Blood Count 6.1 K/mm3 (4.8-10.8)
[2025-02-12 05:41] LABS: Alanine Aminotransferase 14 U/L (6-50); Albumin Level 3.2 g/dL (3.5-5.1); Alkaline Phosphatase 79 U/L (38-126); Anion Gap 7 mmol/L (4-12); Aspartate Amino Transferase 24 U/L (17-59); Bilirubin,Total 1.1 mg/dL (0.2-1.3); Blood Urea Nitrogen 15 mg/dL (9-20); Calcium 8.9 mg/dL (8.4-10.2); Carbon Dioxide 26 mmol/L (22-30); Chloride 107 mmol/L (98-107); Estimated CRCL calculation 56 ml/min; Estimated Glomerular Filt Rate > 60; Glucose 105 mg/dL (65-110); Magnesium 2.0 mg/dL (1.6-2.3); Osmolality Calculated 290 mOsm/kg (285-295); Potassium 4.1 mmol/L (3.4-5.0); Sodium 140 mmol/L (137-145); Total Protein 5.9 g/dL (6.3-8.2)
[2025-02-12 08:00] VITALS: BP 117/74; PULSE 88; PULSE 90; RESP 18; TEMP 36.6; O2SAT 94
--- NOTE | 2025-02-12 08:14 | PC.NURSE ---
Breakfast tray delivered to pt at this time. Pt currently sitting in chair with bed alarm on. Urinal and call light within pt's reach.
[2025-02-12] MEDS: ENOXAPARIN 100 MG/ML SYRINGE 85 MG SUB-Q (08:51)
[2025-02-12 08:52] VITALS: PULSE 90
[2025-02-12] MEDS: DOXYCYCLINE HYCLATE 100 MG TABLET PO (08:52)
[2025-02-12] MEDS: ASPIRIN 81 MG ENTERIC TABLET PO (08:52)
[2025-02-12] MEDS: METOPROLOL TARTRATE 12.5 MG TABLET PO (08:52)
[2025-02-12] MEDS: TAMSULOSIN HCL 0.4 MG CAPSULE PO (08:52)
--- NOTE | 2025-02-12 10:36 | P.DS_ITS ---
DS: Admitting Diagnosis Discharge Date 02/12/2025 Admitting Diagnosis Left arm Numbness/NSTEMI/ sinusitis DS: Discharge Diagnosis Discharge Diagnosis (1) CVA, old, aphasia: Code(s): I69.320 - Aphasia following cerebral infarction Status: Acute (2) NSTEMI (non-ST elevated myocardial infarction): Code(s): I21.4 - Non-ST elevation (NSTEMI) myocardial infarction Status: Acute (3) Left arm numbness: Code(s): R20.0 - Anesthesia of skin Status: Acute (4) Sinusitis chronic, frontal: Code(s): J32.1 - Chronic frontal sinusitis Status: Acute (5) HTN (hypertension): Code(s): I10 - Essential (primary) hypertension Status: Acute (6) Hyperlipidemia: Code(s): E78.5 - Hyperlipidemia, unspecified Status: Acute (7) Type 2 diabetes mellitus: Code(s): E11.9 - Type 2 diabetes mellitus without complications Status: Acute (8) CHF (congestive heart failure): Code(s): I50.9 - Heart failure, unspecified Status: Acute (9) BPH (benign prostatic hyperplasia): Code(s): N40.0 - Benign prostatic hyperplasia without lower urinary tract symptoms Status: Acute DS: Summary Hospital Course Reason for hospitalization: Left arm Numbness/NSTEMI/ sinusitis Hospital Course: Admission: Patient was a 84-year-old male who was brought in for further evaluation by family due to complaints of left arm numbness. Patient's family reports he does have a past medical history of CVA in 2019 at which time he has had difficulty with speech since, post treatment prostate cancer, HLD, nephrectomy, HTN. initially upon arrival patient was called as code stroke due to left arm numbness and difficulty with speech sent for stat CT head however family reported that patient has no change in his speech pattern this was his baseline. patient was recently seen in the emergency department due to left lower extremity pain at which time his D-dimer was significantly elevated he was given a full dose of Lovenox with a script for a venous Doppler which he had performed at [facility] that showed no DVT. patient alert oriented moving all other extremities appropriately however does have patient difficulty finding words requested I speak with his sons regarding his care. In the Ed: stat CT head did showed an old large remote left frontal infarct, old left basilar ganglia lacunar infarct, and left right basal can be infarct however no acute infarct hemorrhaging noted. patient was found to have elevated troponins initial troponin in the emergency department was 0.071 with tachycar anibal ranging between 115-120. patient's BNP was mildly elevated CXR showing mild CHF. the ER physician had spoke to patient's ezufn-zu-sgunlegi son Darwin about possible transfer for cardiac evaluation and reported they did not want any extensive diagnostic or interventional treatment requested just medical management. Hospital Course: Patient was admitted to the medical unit, patient alert and oriented x2 was able to answer some questions appropriately but having difficulty finding his words. He did deny any chest pain, shortness a breath, nausea, vomiting but did report some mild left arm numbness. A follow-up troponin was 0.078. evaluated patient's chart and previous D-dimer was greater than 7 and repeat today was greater than 14 so I did send patient down for a stat CTA of chest to rule out PE. I did call patient's POA and discussed about neurological findings as well as cardiac findings and if they wanted any further diagnostic testing to rule in or out another acute stroke at which time they requested patient stay at [facility] and did not want any further diagnostic testing for a new stroke. Darwin POTherese also just wanted medical management for the elevated troponins was okay if patient needs blood thinners pending results of CTA. continue to treat patient's NSTEMI with medical management 48 hours of full-dose Lovenox, an echocardiogram was ordered and planned for day of discharge. patient was updated on diagnostic findings of progression of his metastatic cancer and can follow up outpatient with Dr. Crowley his oncologist. Patient during his hospitalization denied any chest pain, shortness a breath, nausea, vomiting. PT/OT /ST was ordered for further evaluation they did recommend SNF versus [facility] versus rehab however this time patient wants to return back home and does not want any home health. Patient seen day of discharge in no acute ditress with no complaints. Was discharged to home with family Status at Discharge Functional status at discharge: independent ambulation Overall status at discharge: patient is progressing back to baseline Time Spent with Patient Time attestation: Total time spent providing and/or coordinating discharge services: Time spent: Greater than 30 minutes Exam Const: General: comfortable and no acute distress Orientation/consciousness: oriented to person and oriented to place Other: older pleasant male looks stated age HENMT: Ears: TM's normal bilaterally Face/Nose/Sinus: Normal nares present Mouth: Yes moist mucous membranes Eyes: General: appearance normal, both eyes and all related structures Sclera: sclerae normal Pupils: Equal, round and reactive pupils present Neck: Neck: supple and no JVD Resp: Effort & Inspection: normal respiratory effort Auscultation: crackles bilateral (scant) throughout Cardio: Rate: tachycardic GI: Auscultation: normal bowel sounds Skin: General skin exam: normal color Wounds: no wounds Neuro: General: oriented to person, oriented to place, gait normal and Unable to assess gait Cranial nerves: Yes Equal, round and reactive pupils present and Yes facial symmetry Cognition (Neuro): abnormal cognition Speech: aphasia Gait exam (Neuro): Unable to assess gait Motor exam (neuro): 5/5 motor strength present throughout and Normal motor muscle tone present throughout Extrem: General: normal to inspection Psych: Affect: normal affect DS: Data Data Completed and Pending Labs on day of discharge: Labs from last 24 hours 02/12/25 05:19 WBC 6.1 RBC 3.98 L Hgb 12.4 Hct 37.9 MCV 95.2 MCH 31.2 H MCHC 32.7 RDW 13.6 Plt Count 151 MPV 9.5 Immature Gran % (Auto) 0.7 H Neut % (Auto) 68.7 Lymph % (Auto) 16.7 L [place] % (Auto) 9.3 Eos % (Auto) 3.9 Baso % (Auto) 0.7 Lymph # (Auto) 1.02 L [place] # (Auto) 0.57 Eos # (Auto) 0.24 Baso # (Auto) 0.04 Abs Immat Gran (auto) 0.04 H Absolute Neuts (auto) 4.19 Absolute Nucleated RBC 0.00 Nucleated RBC % 0.0 Sodium 140 Potassium 4.1 Chloride 107 Carbon Dioxide 26 Anion Gap 7 BUN 15 Creatinine 0.96 Estim Creat Clear Calc 56 Estimated GFR > 60 Glucose 105 Calculated Osmolality 290 Calcium 8.9 Magnesium 2.0 Total Bilirubin 1.1 AST 24 ALT 14 Alkaline Phosphatase 79 Total Protein 5.9 L Albumin 3.2 L Preliminary micro results at discharge 02/09/25 14:08 Blood Culture - Preliminary Blood 02/09/25 14:43 Blood Culture - Preliminary Blood Imaging Radiologist's impression: Radiology Results: ITS Impressions Head CT 02/09/25 13:25 Impression: 1.No acute intracranial abnormality. Chest X-Ray 02/09/25 13:40 Impression: Mild CHF Chest CTA 02/10/25 11:15 IMPRESSION: 1. No pulmonary embolism. Sensitivity decreased in the smaller subsegmental pulmonary arteries due to diffuse moderate pulmonary motion artifact. 2. Dependent predominant supply thickening and mild groundglass opacities in both lungs likely, is mild pulmonary edema and atelectasis although differential includes pneumonia. 3. Interval development of multiple pulmonary nodules and masses and enlarged lymph node prominent mediastinal, bilateral hilar and left supraclavicular lymphadenopathy which is consistent with progression of metastatic prostate cancer previously seen on PET/CT dated 09/21/23. 4. Suspicious for metastatic disease. Could consider further evaluation with repeat PSMA PET for more sensitive assessment for additional metastatic disease. Discharge Plan Discharge Attending physician on discharge: Yonny Ruiz Consulting providers: Jody Ogden Discharging Clinician: Jody Ogden Anticipated Discharge Date/Time: 02/12/25 10:29 Patient Disposition: Home Activity: may shower and as tolerated Diet: heart healthy Discharge Instructions: 1). NSTEMI * Continue Metoprolol, ASA and your atorvastatin 2). Sinusitis * I have ordered doxycycline please complete as indicated if feeling better 2). History of CVA (Stroke) * continue ASA and atorvastatin 3) Metastatic prostate cancer * diagnostic testing did show progression of metastatic prostate cancer * you may follow-up with Dr. Crowley How can you care for yourself at home? ? Keep track of any new symptoms or changes in your symptoms. ? Rest until you feel better. ? Be safe with medicines. Take your medicines exactly as prescribed. Call your doctor if you think you are having a problem with your medicine. ? Do not drive after taking a prescription pain medicine. ? Ensure to follow-up with primary care physician as indicated and provide updated medication list provided to you at discharge. When should you call for help? Call 911 anytime you think you may need emergency care. For example, call if: ? You passed out (lost consciousness). Call your doctor now or seek immediate medical care if: ? You have new symptoms like fever, difficulty breathing, Chest pain, vomiting, or rash. ? You have new or different pain. ? You are confused and are having trouble thinking clearly. ? Your symptoms are getting worse. Watch closely for changes in your health, and be sure to contact your doctor if: ? You do not get better as expected. Patient Instructions: Antibiotic Form, Heart Attack (DC), Global Aphasia Exercises (DC), Self Care Measures After a Stroke (DC), Stroke Prevention (DC) Patient Language: Greenlandic Stand Alone Forms: General Discharge Information Follow-up/Referrals: Jazzy Medel, PASTORAL WORKER [Primary Care Provider, [facility]] - 2 weeks Discharge Medications: New doxycycline hyclate 100 mg Tablet 100 mg PO Q12HR Qty: 11 0RF loratadine 10 mg Tablet 10 mg PO HS Qty: 30 0RF Continued tamsulosin 0.4 mg capsule 0.4 mg PO DAILY Qty: 90 3RF metoprolol tartrate 25 mg tablet 12.5 mg PO BID Qty: 180 3RF polyethylene glycol 3350 [Miralax] 17 gram/dose powder 17 g PO DAILY PRN (Reason: constipation) Qty: 510 3RF atorvastatin 80 mg tablet 80 mg PO HS Qty: 90 3RF aspirin 81 mg tablet,delayed release (DR/EC) 81 mg PO DAILY Qty: 90 3RF Date of admission: 02/09/25 19:21 Primary Care Provider: Jazzy Medel Admitting Provider: Yonny Ruiz Attending physician on admission: Yonny Ruiz Condition: Improved Quality VTE Prophylaxis VTE prophylaxis: pharmacologic ordered -Patient's previous records reviewed on admission -ER notes reviewed in detail on admission -discussed all findings and current treatment plan with patient/Family/POA -Consultations reviewed for recommendations -Patient's disposition for safe discharge discussed with case coordinator Dictation performed by [employer] direct speech recognition software, therefore web content manager variants and typographical errors may occur. Hospitalist MIPS Heart Failure (Exclusion) Patient has history of Heart Transplant or Left Ventricular Assistive Device?: No IF YES, STOP HERE Heart Failure (Qualifier) Patient has current or prior documentation of LVEF less than or equal to 40%, or mod/servere depressed LVSF?: No IF NO, STOP HERE
--- NOTE | 2025-02-12 10:50 | PC.NURSE ---
Staff at bedside for echo. Pt ambulatory back to bed with this RN with steady gait while using walker. Pt's granddaughter outside of room speaking with Evan, inpatient care manager rn.
--- NOTE | 2025-02-12 10:51 | PC.NURSE ---
Staff at bedside for echo. Pt's granddaughter outside of room speaking with Evan-credentialing coordinator.
--- NOTE | 2025-02-12 11:25 | ECHO_ITS ---
Patient Info Name: Dion Nur Age: 84 years : 1940 Gender: Male Ht: 71 in Wt: 192 lbs BSA: 2.10 m2 HR: 120 bpm BP: 117 / 74 mmHg Technical Quality: Good Exam Date: 02/12/2025 10:47 AM Patient Status: I Admit Date: 02/09/2025 Exam Type: CA echo doppler color flow Complete two-dimensional, color flow and Doppler transthoracic echocardiogram is performed. Staff Referring Physician: Jody Ogden Color Printer Operator: Yeimi Das Attending Provider: Yonny Ruiz MD Summary 1. Complete two-dimensional, color flow and Doppler transthoracic echocardiogram is performed. 2. Left ventricular chamber dimension is normal. 3. Left ventricular systolic function is normal, estimated at 55-60. 4. There is mild concentric increased left ventricular wall thickness. 5. The left ventricular diastolic function is grade I diastolic dysfunction. 6. E/e' 11 is mildly elevated. 7. Left atrial chamber dimension is mildly enlarged. 8. There is moderate aortic valve sclerosis. 9. The mitral valve has a mildly calcified annulus. 10. There is mild to moderate mitral valve regurgitation. 11. There is mild tricuspid valve regurgitation. 12. No pulmonary hypertension, estimated pulmonary arterial systolic pressure is 39 mmHg. Left Ventricle E/e' 11 is mildly elevated. Left ventricular chamber dimension is normal. Left ventricular systolic function is normal, estimated at 55-60. There is mild concentric increased left ventricular wall thickness. The left ventricular diastolic function is grade I diastolic dysfunction. Right Ventricle Right ventricular chamber dimension is normal. Right ventricular systolic function is normal. Left Atria Left atrial chamber dimension is mildly enlarged. Right Atria Right atrial chamber dimension is normal. Aortic Valve The aortic valve is trileaflet. There is moderate aortic valve sclerosis. There is no aortic valve stenosis. There is no aortic valve regurgitation. Pulmonic Valve There is no pulmonic regurgitation. Mitral Valve The mitral valve has a mildly calcified annulus. There is no mitral valve stenosis. There is mild to moderate mitral valve regurgitation. Tricuspid Valve There is mild tricuspid valve regurgitation. No pulmonary hypertension, estimated pulmonary arterial systolic pressure is 39 mmHg. Pericardium/Pleural There is no pericardial effusion. Inferior Vena Cava Normal inferior vena cava with >50% collapse upon inspiration consistent with normal right atrial pressure, 5 mmHg. Aorta The aortic root size at the sinus of Valsalva is normal. Left Ventricular Outflow Tract Name Value Normal LVOT 2D LVOT Diameter 2.0 cm LVOT Doppler LVOT Peak Velocity 141 cm/s LVOT Peak Gradient 8 mmHg LVOT Mean Gradient 4 mmHg LVOT VTI 28 cm LVOT Stroke Volume 85 ml LVOT CO 10.2 l/min LVOT CI 4.8 l/min/m2 Pulmonic Valve Name Value Normal RVOT Doppler RVOT Peak Velocity 90 cm/s RVOT Peak Gradient 3 mmHg PV Doppler PV Peak Velocity 100 cm/s PV Peak Gradient 4 mmHg Mitral Valve Name Value Normal MV Regurgitation Doppler MR Peak Gradient 125 mmHg MV Diastolic Function MV E Peak Velocity 104 cm/s MV A Peak Velocity 116 cm/s MV E/A 0.9 MV Decel Time (PW) 212 ms MV Annular TDI MV E/e' (Septal) 12.1 MV E/e' (Lateral) 10.4 MV E/e' (Average) 11.3 Tricuspid Valve Name Value Normal TV Regurgitation Doppler TR Peak Velocity 292 cm/s TR Peak Gradient 34 mmHg Estimated PAP/RSVP RA Pressure 5 mmHg <=5 PA Systolic Pressure 39 mmHg <36 RV Systolic Pressure 39 mmHg <36 Aortic Valve Name Value Normal AV Doppler AV Peak Velocity 166 cm/s AV Peak Gradient 11 mmHg AV Area (Cont Eq Roman) 2.6 cm2 AV DI (Roman) 0.85 AV Regurgitation 2D LVOT Area 3.1 cm2 Ventricles Name Value Normal LV Dimensions 2D/MM IVS Diastolic Thickness (2D) 1.2 cm 0.6-1.0 LVID Diastole (2D) 4.5 cm 4.2-5.8 LVIW Diastolic Thickness (2D) 1.3 cm 0.6-1.0 LVID Systole (2D) 2.4 cm 2.5-4.0 LVOT Diameter 2.0 cm LV Mass (2D Cubed) 206.25 g 88.00-224.00 LV Mass Index (2D Cubed) 98 g/m2 49-115 Relative Wall Thickness (2D) 0.57 <=0.42 LV Fractional Shortening/Ejection Fraction 2D/MM LV Fractional Shortening (2D) 47 % 25-43 LV EF (2D Teichholz) 78 % LV Diastolic Volume (4C MOD) 109 ml LV EF (4C MOD) 58 % LV Diastolic Volume (2C MOD) 91 ml LV EF (2C MOD) 53 % LV Diastolic Volume (BP MOD) 99 ml 62-150 LV Diastolic Volume Index (BP MOD) 47 ml/m2 34-74 LV Systolic Volume (BP MOD) 45 ml 21-61 LV Systolic Volume Index (BP MOD) 22 ml/m2 11-31 LV EF (BP MOD) 54 % 52-72 LV Diastolic Length (4C) 8.3 cm LV Systolic Length (4C) 6.9 cm LV Stroke Volume (4C MOD) 63 ml Atria Name Value Normal RA Dimensions RA Systolic Major [place] Length (4C) 5.1 cm 2.1-2.7 RA Area (4C) 14.8 cm2 <=18.0 Report Signatures
[2025-02-12 11:35] VITALS: BP 122/80; PULSE 101; RESP 18; TEMP 36.6; O2SAT 95
--- NOTE | 2025-02-12 11:35 | PC.NURSE ---
D/C paperwork discussed with pt and pt's daughter. Pt and family member verbalized understanding and all questions answered prior to d/c. PIV removed. This RN assisted pt to front entrance via wheelchair and assisted pt into truck.
--- NOTE | 2025-02-15 08:42 | PC.NURSE ---
Unable to reach for discharge call back
== END 2025-02-12 11:40 | disposition home or self-care (01) ==
LOC: CHSED 19:16 → CHS2ND 20:05
PROVIDERS: Nurse Practitioner Family; Admitting Provider Internal Medicine; Emergency Provider Emergency Medicine; PCP Nurse Practitioner Family; Visit Provider Internal Medicine
DX: I21.4 Non-ST elevation (NSTEMI) myocardial infarction (principal); I69.320 Aphasia following cerebral infarction; J32.1 Chronic frontal sinusitis; C61 Malignant neoplasm of prostate; C79.9 Secondary malignant neoplasm of unspecified site; I11.0 Hypertensive heart disease with heart failure; I50.9 Heart failure, unspecified; F03.90 Unspecified dementia, unspecified severity, without behavioral disturbance, psychotic disturbance, mood disturbance, and anxiety; E11.9 Type 2 diabetes mellitus without complications; E78.5 Hyperlipidemia, unspecified; Z90.5 Acquired absence of kidney; Z87.891 Personal history of nicotine dependence; Z79.82 Long term (current) use of aspirin
CPT/HCPCS: 36415; 70450; 71045; 71275; 80053; 80307; 81001; 82948; 83036; 83605; 83735; 83880; 84443; 84484; 85025; 85380; 85610; 85730; 92522; 92610; 93005; 93306; 96361; 96365; 96372; 97161; 97165; 97530; 99285; A9270; G0378; J1650; J1956; J7030; J7040; Q9967

== ENCOUNTER 2025-02-26 08:27 | Observation (INO) | payer MEDICARE, SELFPAY ==
[2025-02-26] VITALS (25 sets, daily range): BP systolic 108–151; BP diastolic 56–97; PULSE 92–110; RESP 12–29; TEMP 36.4–37.1; O2SAT 90–97; BMI 27.2
--- NOTE | ~2025-02-26 | CT_ITS ---
EXAMINATION: CT brain wo con DATE: 02/26/2025 09:40 INDICATION: Head injury. TECHNIQUE: Computed tomography (CT) of the head was performed without intravenous contrast. The mA was adjusted according to patient size. Iterative reconstruction technique was employed. The dose-length product was 780.19 mGy-cm. COMPARISON: Head CT 02/09/2025 FINDINGS: There is an old infarct involving the left frontal lobe, left insula, and left basal ganglia. There is an old infarct in left thalamus. There is an infarct in left occipital lobe. There is an old infarct in the right caudate nucleus. There are scattered areas of low attenuation in the cerebral white matter. There is no intracranial hemorrhage or abnormal intracranial mass lesion. There is ex vacuo dilatation of left lateral ventricle. The paranasal sinuses are clear. There are likely changes of ocular lens replacement surgeries. The mastoid air cells are normal. IMPRESSION: 1. Acute versus subacute infarct in left occipital lobe, not visible on 02/09/2025. 2. Old infarcts involving the left frontal lobe, left insula, bilateral basal ganglia, and left thalamus. 3. Moderate nonspecific cerebral white matter disease, which likely represents chronic small vessel ischemic disease. Reviewed, dictated and finalized at location E. IMPRESSION: 1. Acute versus subacute infarct in left occipital lobe, not visible on 02/10/20 25. 2. Old infarcts involving the left frontal lobe, left insula, bilateral basal g anglia, and left thalamus. 3. Moderate nonspecific cerebral white matter disease, which likely represents chronic small vessel ischemic disease.
--- NOTE | ~2025-02-26 | CT_ITS ---
EXAMINATION: CT chest abdomen pelvis wo con DATE: 02/26/2025 09:40 INDICATION: Chest and abdominal injury. TECHNIQUE: Computed tomography (CT) of the chest, abdomen, and pelvis was performed without intravenous contrast. Automated exposure control and iterative reconstruction technique were employed. The dose-length product was 780.19 mGy-cm. COMPARISON: Chest CT 02/10/2025 FINDINGS: CHEST CT: The lungs demonstrate smooth septal thickening and groundglass opacities, consistent with mild pulmonary edema. There are are subpleural bands in right lower lobe. There are greater than 20 scattered nodules in the lungs measuring up to 2.9 cm in right lower lobe. No pleural effusion. There is left sup raclavicular lymphadenopathy and mediastinal and lymphadenopathy. There are widespread lytic lesions in the bones. Again seen is height loss of many vertebral bodies. ABDOMEN/PELVIS CT: Calcifications in the liver and spleen are consistent with old granulomatous disease. The gallbladder is normal in size. The pancreas and adrenal glands are normal. There are cysts in right kidney measuring up to 3.2 cm. There is a 7 mm stone in right kidney. Left kidney is absent. There is mild left para-aortic lymphadenopathy. The prostate is mildly enlarged. There are brachytherapy seeds in the prostate. There are no dilated loops of bowel. There is no ascites. There are widespread lytic lesions in the bones. There is height loss of multiple vertebral bodies, likely subacute or chronic. IMPRESSION: 1. Pulmonary nodules, chest and abdominal lymphadenopathy, and bone lesions, consistent with metastatic disease. Consider ultrasound-guided core needle biopsy of a left supraclavicular lymph node. 2. Mild pulmonary edema. Reviewed, dictated and finalized at location E. IMPRESSION: 1. Pulmonary nodules, chest and abdominal lymphadenopathy, and bone lesions, co nsistent with metastatic disease. Consider ultrasound-guided core needle biopsy of a left supraclavicular lymph node. 2. Mild pulmonary edema.
[2025-02-26] MEDS: SODIUM CHLORIDE 0.9% IV 1,000 ML 999 ML IV CONT (08:30)
--- NOTE | 2025-02-26 08:38 | ECG_ITS ---
Test Date: 2025-02-26 08:43:05 Measurements Intervals Venus Rate: 102 P: 18 HI: 154 QRS: -53 QRSD: 104 T: 77 QT: 368 QTc: 481 Interpretive Statements SINUS TACHYCARDIA WITH FREQUENT SUPRAVENTRICULAR PREMATURE COMPLEXES IN A BIGEMINAL PATTERN LEFT ANTERIOR FASCICULAR BLOCK [QRS AXIS <= -45, QR IN I, RS IN II] NONSPECIFIC ST-T WAVE CHANGES Compared to ECG 02/09/2025 13:39:29 NO SIGNIFICANT CHANGES Electronically Signed On 02-26-2025 09:26:04 CDT by Sky Fan M.D.
--- NOTE | 2025-02-26 09:01 | ED_ITS ---
HPI - Weakness General Chief complaint: Weakness Stated complaint: weakness Time Seen by Provider: 02/26/25 08:38 Source: patient Mode of arrival: EMS Limitations: clinical condition History of Present Illness HPI Narrative: Patient is an 84-year-old male who was just discharged from the hospital for non-STEMI and a left arm numbness here with generalized weakness for 5 days. He has been having trouble getting up to the bathroom and some incontinence issues due to weakness. Patient has been declining fast over the past few weeks. Family present. Code status unknown. Complaint: generalized weakness Onset (ago): day(s) (Five) Duration: constant Location: generalized Migration: none Severity: moderate Severity scale (1-10): 5 Quality: other (No current pain) Relieving factors: none Exacerbating factors: none Context: history of similar Associated symptoms: denies other symptoms Related Data Home Medications ?Medication ?Instructions ?Recorded ?Confirmed ?Last Taken ?Type allopurinol 300 mg tablet 300 mg PO DAILY 02/26/2502/26/25 History Allergies Allergy/AdvReac Type Severity Reaction Status Date / Time Penicillins AdvReac FEET Verified 02/26/25 08:56 SWELLING Review of Systems 2 Review of Systems: All systems reviewed & are unremarkable except as noted in HPI and below Constitutional: Constitutional: Reports no additional constitutional complaints Eyes: Eyes: Reports no additional eye complaints ENT: Reports system reviewed and no additional complaints, except as documented Cardiovascular: Cardiovascular: Reports no additional cardiovascular complaints Respiratory: Respiratory: Reports no additional respiratory complaints Gastrointestinal: Gastrointestinal: Reports no additional gastrointestinal complaints Genitourinary: Genitourinary: Reports no additional male genitourinary complaints Musculoskeletal: Musculoskeletal: Reports no additional musculoskeletal complaints Integumentary/Breasts: Skin/Breast: Reports system reviewed and no additional complaints, except as docu Neurologic: Reports system reviewed and no additional complaints, except as documented Psychiatric: Psychiatric: Reports no additional psychiatric complaints Endocrine: Endocrine: Reports no additional endocrine complaints Hematologic/Lymphatic: Hematologic/Lymphatic: Reports no additional hematologic/lymphatic complaints Allergic/Immunologic: Allergic/Immunologic: Reports no additional allergic/immunologic complaints PMFSH Past Medical History Medical History BPH (benign prostatic hyperplasia) Type 2 diabetes mellitus CVA, old, aphasia History of prostate cancer Forgetfulness Hyperlipidemia HTN (hypertension) Surgical History Surgical History History of kidney removal Social History Social History Smoking packs per day: 1 Smoking cigarettes per day: 20.0 Years smoked: 30 Smoking pack-years: 30.00 Smoking status: Former smoker Tobacco type: cigarettes Second hand tobacco smoke exposure: No Additional smoking assessment comments: STAETS QUIT 2017~ Alcohol intake: former Alcohol use details: RARELY - COUPLE TIMES A YR Substance use: never Substance use type: does not use Do You Feel Safe in your Home?: Yes Lack of Transportation: No Lack of Food: Never True Current Housing: I Have Housing Concerned About Future Housing: No Difficulty Paying Gas/Electric Bills: No Difficulty Paying for Meds: No Currently Unemployed: No Education: Trade/Vocational Certificate Difficulty w/ Childcare or Family Care: No Living arrangements: alone Occupation/Education: retired Gender identity (if verbalized by the patient): Male Sexual Orientation (if Verbalized by the Patient): Straight or Heterosexual Spiritual care concerns: No Exam 2 Const: General: no acute distress Nutritional Appearance: well nourished Orientation/consciousness: confusion (AAO x2 and appropriate) Limitations: p hysical limitations HENMT: Head: normal to inspection Ears: external ears normal F karina/Nose/Sinus: Normal external nose present Eyes: Conjunctivae: conjunctivae normal Pupils: Equal, round and reactive pupils present EOM: EOMs intact bilaterally Neck: Neck: normal visual inspection Chest: Chest palpation & inspection: normal inspection of the chest Resp: Effort & Inspection: normal respiratory effort and not labored A uscultation: clear to auscultation bilaterally and no crackles Cardio: Rate: tachycardic Rhythm: abnormal rhythm Heart sounds: Murmur heart sound present continuous and systolic GI: Inspection: non-distended GI Palp: Yes Soft to palpation and No Tenderness to palpation present (GI) Auscultation: normal bowel sounds : General: Yes bladder normal to palpation Back/Spine/Pelvis: Back: no CVA tenderness Skin: General skin exam: normal color Rashes: no rashes Wounds: no wounds Neuro: General: No patient oriented x3, moves all extremities, no meningeal signs, no focal motor deficits and CN's II-XI intact bilaterally Cranial nerves: Yes Nystagmus not present Speech: normal speech Gait exam (Neuro): gait abnormal Other: Fast exam negative, NIH score is 0, GCS is 15 Extrem: General: normal to inspection Psych: Mental Status: mental status grossly normal Affect: normal affect Attitude: cooperative Course Vital Signs Vital signs: Vital Signs Temperature 36.4 C 02/26/25 08:27 Pulse Rate 110 H 02/26/25 08:27 Respiratory Rate 22 H 02/26/25 08:27 Blood Pressure 137/92 H 02/26/25 08:27 Pulse Oximetry 94 02/26/25 08:27 Oxygen Delivery Room Air 02/26/25 08:27 Temperature 36.4 C 02/26/25 08:27 Pulse Rate 98 02/26/25 10:01 Respiratory Rate 12 02/26/25 10:01 Blood Pressure 134/82 02/26/25 10:00 Pulse Oximetry 93 02/26/25 10:01 Oxygen Delivery Room Air 02/26/25 08:27 MDM - Weakness MDM Narrative Medical decision making narrative: Patient is an 84-year-old male with generalized weakness for the past 5 days. He was just discharged from the hospital. He is declining rapidly over the past few weeks. Will likely admit him again and patient may need some sort of nursing assistance or [place] [facility] placement at this point. Neuro cardiac workup. We will discuss with the family and also get code status. Patient not a candidate for tPA. Unknown time frame of symptoms and many symptoms have been for 5 days. After discussion family meeting the patient would like to be admitted and get PT and OT and then outpatient PT and OT. Patient and family aware of the metastatic prostate cancer and patient did not want any further treatment after initial treatment was done. Lab Data Attestation: I reviewed the patient's lab results. 02/26/25 09:02/26/25 09:17 Labs: Lab Results 02/26/25 02/26/25 Range/Units : 09:23 WBC 5.4 (4.8-10.8) K/mm3 RBC 4.36 L (4.70-6.10) M/mm3 Hgb 13.4 (12.4-15.3) g/dL Hct 41.8 (37.0-46.0) % MCV 95.9 (78.0-102.0) fL MCH 30.7 (27.0-31.0) pg MCHC 32.1 (32-36) g/dL RDW 13.3 (11.6-14.4) % Plt Count 128 L (150-420) K/mm3 MPV 9.7 (8.7-11.0) fl Immature Gran % (Auto) 0.6 H (0.0-0.0) % Neut % (Auto) 70.1 H (50.0-70.0) % Lymph % (Auto) 13.4 L (18.0-42.0) % [place] % (Auto) 11.2 H (2.0-11.0) % Eos % (Auto) 4.1 (1.0-6.0) % Baso % (Auto) 0.6 (0.0-1.0) % Lymph # (Auto) 0.72 L (1.10-4.50) K/mm3 [place] # (Auto) 0.60 (0.10-0.90) K/mm3 Eos # (Auto) 0.22 (0.02-0.50) K/mm3 Baso # (Auto) 0.03 (0.00-0.10) K/mm3 Abs Immat Gran (auto) 0.03 H (0.00-0.00) K/mm3 Absolute Neuts (auto) 3.78 (1.70-7.20) K/mm3 Absolute Nucleated RBC 0.00 (0.00-0.00) K/mm3 Nucleated RBC % 0.0 (0-0.0) % % Immature Plt Fraction 2.7 (1.0-7.0) % PT 14.1 H (9.50-12.1) Seconds INR 1.3 APTT 31.0 H (23.9-30.70) Sec Sodium 140 (137-145) mmol/L Potassium 4.5 (3.4-5.0) mmol/L Chloride 103 (98-107) mmol/L Carbon Dioxide 28 (22-30) mmol/L Anion Gap 9 (4-12) mmol/L BUN 11 (9-20) mg/dL Creatinine 1.10 (0.7-1.3) mg/dL Estim Creat Clear Calc 46 ml/min Estimated GFR > 60 (59 - ) Glucose 123 H (65-110) mg/dL Calculated Osmolality 290 (285-295) mOsm/kg Lactic Acid 1.6 (0.4-2.0) mmol/L Calcium 9.2 (8.4-10.2) mg/dL Total Bilirubin 1.4 H (0.2-1.3) mg/dL AST 39 (17-59) U/L ALT 19 (6-50) U/L Alkaline Phosphatase 104 (38-126) U/L Total Creatine Kinase 39 L (55-170) U/L Troponin I 0.060 H* (0.000-0.034) ng/mL NT-Pro-B Natriuret Pep 191 H (19.9-100) pg/mL Total Protein 6.7 (6.3-8.2) g/dL Albumin 3.8 (3.5-5.1) g/dL TSH 1.360 (0.465-4.680) uIU/mL Urine Color Light yellow (Yellow) Urine Appearance Clear (Clear) Urine pH 7.0 (5.0-8.0) Ur Specific [place] <= 1.005 L (1.010-1.020) Urine Protein Negative (Negative) Urine Glucose (UA) Negative (Negative) Urine Ketones Negative (Negative) Ur Blood (Man) Negative (Negative) Urine Nitrate Negative (Negative) Urine Bilirubin Negative (Negative) Urine Urobilinogen 1.0 (0.2-1.0) mg/dL Leukocyte Esterase Rfl Negative (Negative) [place]/UL Influenza A (RT-PCR) Negative (Negative) Influenza B (RT-PCR) Negative (Negative) RSV (RT-PCR) Negative (Negative) SARS-CoV-2 RNA (RT-PCR) Negative (Negative) Imaging Data Attestation: I personally reviewed and interpreted this imaging study as follows: Radiologist's impression: CT scan of the head shows IMPRESSION: 1. Acute versus subacute infarct in left occipital lobe, not visible on 02/09/2025. 2. Old infarcts involving the left frontal lobe, left insula, bilateral basal ganglia, and left thalamus. 3. Moderate nonspecific cerebral white matter disease, which likely represents chronic small vessel ischemic disease. CT scan of the chest abdomen and pelvis shows IMPRESSION: 1. Pulmonary nodules, chest and abdominal lymphadenopathy, and bone lesions, consistent with metastatic disease. Consider ultrasound-guided core needle biopsy of a left supraclavicular lymph node. 2. Mild pulmonary edema. ECG Data EKG #1: Attestation: I personally reviewed and interpreted this ECG as follows: ECG completion date: 02/26/25 ECG completion time: :25 EKG Interpretation: tachycardia, PACs, non-specific ST changes, normal QRS, normal QT and left axis Discharge Plan Discharge Clinical Impression: Acute CVA (cerebrovascular accident), General weakness, Metastasis from malignant neoplasm of prostate, Status post non-ST elevation myocardial infarction (NSTEMI) Patient Disposition: Acute Care Hospital [facility] Condition: Stable Patient Language: Guatemalan Prescriptions: No Action allopurinol 300 mg tablet 300 mg PO DAILY loratadine 10 mg Tablet 10 mg PO HS Qty: 30 0RF tamsulosin 0.4 mg capsule 0.4 mg PO DAILY Qty: 90 3RF metoprolol tartrate 25 mg tablet 12.5 mg PO BID Qty: 180 3RF polyethylene glycol 3350 [Miralax] 17 gram/dose powder 17 g PO DAILY PRN (Reason: constipation) Qty: 510 3RF atorvastatin 80 mg tablet 80 mg PO HS Qty: 90 3RF aspirin 81 mg tablet,delayed release (DR/EC) 81 mg PO DAILY Qty: 90 3RF Follow-up/Referrals: Jazzy Medel NP [Primary Care Provider, Family Practice] Time of Disposition: 10:15
[2025-02-26 09:25] LABS: Hematocrit 41.8 % (37.0-46.0); Hemoglobin 13.4 g/dL (12.4-15.3); Immature Granulocyte Percent A 0.6 % (0.0-0.0); Immature Platelet Fraction Pct 2.7 % (1.0-7.0); Lymphocytes Absolute Auto 0.72 K/mm3 (1.10-4.50); Mean Corpuscular HGB Conc 32.1 g/dL (32-36); Mean Corpuscular Hemoglobin 30.7 pg (27.0-31.0); Mean Corpuscular Volume 95.9 fL (78.0-102.0); Nucleated Red Blood Cells Absolute Auto 0.00 K/mm3 (0.00-0.00); Nucleated Red Blood Cells Perc 0.0 % (0-0.0); Platelet Count Result 128 K/mm3 (150-420); Red Blood Count 4.36 M/mm3 (4.70-6.10); White Blood Count 5.4 K/mm3 (4.8-10.8)
[2025-02-26 09:31] LABS: Add Urine Microscopic? NO; Appearance Urine Clear (Clear); Glucose Urine UA Negative (Negative); Leukocyte Esterase Ur Negative LEU/UL (Negative); Nitrate Urine Negative (Negative); Specific Grav Ur <= 1.005 (1.010-1.020)
[2025-02-26 09:35] LABS: Alanine Aminotransferase 19 U/L (6-50); Albumin Level 3.8 g/dL (3.5-5.1); Alkaline Phosphatase 104 U/L (38-126); Anion Gap 9 mmol/L (4-12); Aspartate Amino Transferase 39 U/L (17-59); Bilirubin,Total 1.4 mg/dL (0.2-1.3); Blood Urea Nitrogen 11 mg/dL (9-20); Calcium 9.2 mg/dL (8.4-10.2); Carbon Dioxide 28 mmol/L (22-30); Chloride 103 mmol/L (98-107); Creatine Kinase 39 U/L (55-170); Estimated CRCL calculation 46 ml/min; Estimated Glomerular Filt Rate > 60; Glucose 123 mg/dL (65-110); Osmolality Calculated 290 mOsm/kg (285-295); Potassium 4.5 mmol/L (3.4-5.0); Sodium 140 mmol/L (137-145); Total Protein 6.7 g/dL (6.3-8.2)
[2025-02-26 09:38] LABS: INR 1.3; Partial Thromboplastin Time 31.0 Sec (23.9-30.70); Prothrombin Time 14.1 Seconds (9.50-12.1)
[2025-02-26 09:44] LABS: NT Pro B Type Natriuretic Pept 191 pg/mL (19.9-100)
[2025-02-26 09:57] LABS: Influenza A QL RT-PCR Negative (Negative); Influenza B QL RT-PCR Negative (Negative); RSV RNA, RT-PCR Negative (Negative); SARS-CoV-2 RNA PCR Negative (Negative)
[2025-02-26 10:16] LABS: Troponin I 0.060 ng/mL (0.000-0.034)
[2025-02-26 10:28] LABS: Thyroid Stimulating Hormone 1.360 uIU/mL (0.465-4.680)
--- OUTSIDE RECORDS SUMMARY | 2025-02-26 10:34 | XMS_ITS | Clinical Summary ---
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 Gender Identity Not on file Sexual Orientation [...] - 1-dose 75+ series) 2017 COVID-19 Vaccine (1 - 2023-2 5 season) 2025 Meningococcal B Vaccine Aged Out No l onger eligible based on patient's age to complete this topic Meningococcal Vaccine Aged Out No evelia michael eligible based on patient's age to complete this topic RSV Immunizations Under 20 Months Aged Out No longer eligible based on patient's age to complete this topic Insurance MEDICARE Care Teams Sheet Roller Operator Relationship Specialty Start Date End Date Karen Watkins APNP [address] [place] [address] PCP - General NURSE PRACTITIONER 11/22/23 Jaylen Mccarty MD [address] [place] [id number] Consulting Physician CLINICAL CARDIAC ELECTROPHYSIOLOGY 11/24/23 Fiorella Gilman PA-C [address] [place], [place] [id number] Physician Care Transition Coordinator CLINICAL CARDIAC ELECTROPHYSIOLOGY 11/24/23
[2025-02-26] MEDS: ASPIRIN 325 MG ENTERIC TABLET PO (10:39)
--- NOTE | 2025-02-26 11:39 | ADMGEN ---
This patient, Dion Nur, was admitted to 2nd Floor Room 207-1. Patient/family oriented to hospital policies and general routines including ID bracelet, bed and alarms, visiting hours, pain management, procedures, bathroom and other care routines, personal items, smoking policy, room service/diet, and visiting hours. Information on how to activate the Rapid Response Team has been discussed. Patient/Family are encouraged to report perceived risks to care and to ask questions if they do not understand what they are told or what they should do. Patient admitted to room 207 today at 1110. Skin assessment shows, R lateral great toe bruising(ball) to the top of toe with partial black spot in nail bed. Right knee is small skinned area, Left flank scattered bruising and right lower abdomen large bruised area, lastly lower left abdomen has scattered bruising. Patient is unable to answer questionin of admission questions and becomes frustrated and anxious when unable to answer.
[2025-02-26] MEDS: METOPROLOL TARTRATE 12.5 MG TABLET PO (17:19)
--- NOTE | 2025-02-26 19:04 | PC.NURSE ---
Report received from Angelica and this RN assumed care of pt at this time. Pt out of bed to use urinal with minimal assistance. Pt back in bed and bed alarm on for pt safety. Respirations even and unlabored. Hospital bed remains in low locked position and call light within pt's reach.
[2025-02-26] MEDS: ATORVASTATIN 40 MG TABLET 80 MG PO (20:19)
[2025-02-26] MEDS: LORATADINE 10 MG TABLET PO (20:19)
[2025-02-27] VITALS: BP 130/88; PULSE 87; RESP 18; TEMP 36.5; O2SAT 98
--- NOTE | 2025-02-27 00:14 | PC.NURSE ---
Addendum entered by Fatoumata Ross RN 02/27/25 05:09: 0507: Pt out of bed to use urinal. Pt needs assistance holding urinal. Pt repositioned in bed and hospital bed remains in low locked position, bed alarm on for pt safety, and call light within pt's reach. Addendum entered by Fatoumata Ross RN 02/27/25 03:11: 0243: Pt out of bed to use urinal. Pt needs assistance holding urinal. Pt repositioned in bed and hospital bed remains in low locked position, bed alarm on for pt safety, and call light within pt's reach. Original Note: 1941: Pt out of bed to use urinal. Pt needs assistance holding urinal. Pt repositioned in bed and hospital bed remains in low locked position, bed alarm on for pt safety, and call light within pt's reach. 2115: Pt out of bed to use urinal. Pt needs assistance holding urinal. Pt repositioned in bed and hospital bed remains in low locked position, bed alarm on for pt safety, and call light within pt's reach. 2250: Pt out of bed to use urinal. Pt needs assistance holding urinal. Pt repositioned in bed and hospital bed remains in low locked position, bed alarm on for pt safety, and call light within pt's reach. 3: Pt out of bed to use urinal. Pt needs assistance holding urinal. Pt repositioned in bed and hospital bed remains in low locked position, bed alarm on for pt safety, and call light within pt's reach.
[2025-02-27 05:25] LABS: Hematocrit 41.7 % (37.0-46.0); Hemoglobin 13.7 g/dL (12.4-15.3); Immature Granulocyte Percent A 0.9 % (0.0-0.0); Immature Platelet Fraction Pct 2.6 % (1.0-7.0); Lymphocytes Absolute Auto 1.12 K/mm3 (1.10-4.50); Mean Corpuscular HGB Conc 32.9 g/dL (32-36); Mean Corpuscular Hemoglobin 31.1 pg (27.0-31.0); Mean Corpuscular Volume 94.6 fL (78.0-102.0); Nucleated Red Blood Cells Absolute Auto 0.00 K/mm3 (0.00-0.00); Nucleated Red Blood Cells Perc 0.0 % (0-0.0); Platelet Count Result 125 K/mm3 (150-420); Red Blood Count 4.41 M/mm3 (4.70-6.10); White Blood Count 6.7 K/mm3 (4.8-10.8)
[2025-02-27 05:40] LABS: Alanine Aminotransferase 19 U/L (6-50); Albumin Level 3.8 g/dL (3.5-5.1); Alkaline Phosphatase 114 U/L (38-126); Anion Gap 7 mmol/L (4-12); Aspartate Amino Transferase 37 U/L (17-59); Bilirubin,Total 1.5 mg/dL (0.2-1.3); Blood Urea Nitrogen 10 mg/dL (9-20); Calcium 9.6 mg/dL (8.4-10.2); Carbon Dioxide 27 mmol/L (22-30); Chloride 105 mmol/L (98-107); Estimated CRCL calculation 57 ml/min; Estimated Glomerular Filt Rate > 60; Glucose 106 mg/dL (65-110); Magnesium 2.1 mg/dL (1.6-2.3); Osmolality Calculated 287 mOsm/kg (285-295); Potassium 4.3 mmol/L (3.4-5.0); Sodium 139 mmol/L (137-145); Total Protein 6.8 g/dL (6.3-8.2)
--- NOTE | 2025-02-27 07:32 | PM.IMHP ---
H&P: HPI History of Present Illness Date/Time: 02/27/25 07:32 Chief Complaint: generalized weakness Narrative: Patient is a 84 year old male with PMH of DM type 2, HTN, HLD, BPH, history of CVA's with residual aphasia and metastatic prostate cancer. Patient was recently discharged from the hospital after an NSTEMI. Family took the patient home and declined home health care services. Patient was brought to the ER yesterday due to generalized weakness for 5 days. Blood work was mostly unremarkable, urinalysis was unremarkable, flu/covid/RSV negative and Head CT showed acute versus subacute infarct in left occipital lobe, not visible on 02/09/2025 imaging. Patient not a candidate for TPA due to symptoms starting 5 days prior to presentation. Patient was admitted for observation and PT/OT evaluation. Review of Systems Review of Systems: All systems reviewed & are unremarkable except as noted in HPI and below PMFSH Past Medical History Medical History BPH (benign prostatic hyperplasia) Type 2 diabetes mellitus CVA, old, aphasia History of prostate cancer Forgetfulness Hyperlipidemia HTN (hypertension) Surgical History Surgical History History of kidney removal Social History Social History Smoking packs per day: 1 Smoking cigarettes per day: 20.0 Years smoked: 30 Smoking pack-years: 30.00 Smoking status: Former smoker Tobacco type: cigarettes Second hand tobacco smoke exposure: No Additional smoking assessment comments: STAETS QUIT 2017~ Alcohol intake: never Alcohol use details: RARELY - COUPLE TIMES A YR Substance use: never Substance use type: does not use Do You Feel Safe in your Home?: Yes Lack of Transportation: No Lack of Food: Never True Current Housing: I Have Housing Concerned About Future Housing: No Difficulty Paying Gas/Electric Bills: No Difficulty Paying for Meds: No Currently Unemployed: No Education: Trade/Vocational Certificate Difficulty w/ Childcare or Family Care: No Living arrangements: alone Occupation/Education: retired Gender identity (if verbalized by the patient): Male Sexual Orientation (if Verbalized by the Patient): Straight or Heterosexual Spiritual care concerns: No Meds Home Medications and Allergies Home Medications ?Medication ?Instructions ?Recorded ?Confirmed ?Type aspirin 81 mg tablet,delayed 81 mg PO DAILY #90 tabs 11/28/24 02/28/25 Rx release atorvastatin 80 mg tablet 80 mg PO HS #90 tabs 11/28/24 02/28/25 Rx metoprolol tartrate 25 mg tablet 12.5 mg (1/2 x 25 mg) PO BID #180 11/28/24 02/28/25 Rx tabs polyethylene glycol 3350 17 17 g PO DAILY PRN constipation 11/28/24 02/28/25 Rx gram/dose oral powder (Miralax) #510 grams tamsulosin 0.4 mg capsule 0.4 mg PO DAILY #90 caps 11/28/24 02/28/25 Rx loratadine 10 mg tablet 10 mg PO HS #30 tabs 02/12/25 02/28/25 Rx allopurinol 300 mg tablet 300 mg PO DAILY 02/26/25 02/28/25 History clopidogrel 75 mg tablet 75 mg PO QAM 30 days #30 tabs 02/27/25 02/28/25 Rx Allergies Allergy/AdvReac Type Severity Reaction Status Date / Time Penicillins AdvReac FEET Verified 02/28/25 14:09 SWELLING Vital Signs Vital Signs - 24 hr 02/26/25 08:27 02/26/25 08:40 02/26/25 08:44 Temperature 97.6 F Pulse Rate 110 H 108 H 104 H Respiratory Rate 22 H 28 H Blood Pressure 137/92 H Pulse Oximetry 94 94 Oxygen Delivery Room Air 02/26/25 08:45 02/26/25 08:46 02/26/25 09:00 Temperature Pulse Rate 110 H 104 H 102 H Respiratory Rate 29 H 23 H 16 Blood Pressure 130/95 H 108/56 L Pulse Oximetry 94 94 91 Oxygen Delivery 02/26/25 09:01 02/26/25 09:15 02/26/25 09:38 Temperature Pulse Rate 97 107 H 102 H Respiratory Rate 14 21 H Blood Pressure Pulse Oximetry 90 95 Oxygen Delivery 02/26/25 09:40 02/26/25 09:44 02/26/25 09:45 Temperature Pulse Rate 107 H 103 H Respiratory Rate 21 H 24 H Blood Pressure 143/97 H Pulse Oximetry 91 93 94 Oxygen Delivery 02/26/25 09:46 02/26/25 10:00 02/26/25 10:01 Temperature Pulse Rate 102 H 98 98 Respiratory Rate 15 18 12 Blood Pressure 145/64 H 134/82 Pulse Oximetry 97 92 93 Oxygen Delivery 02/26/25 10:15 02/26/25 10:16 02/26/25 10:30 Temperature Pulse Rate 95 92 100 Respiratory Rate 15 Blood Pressure 133/76 Pulse Oximetry 94 94 Oxygen Delivery 02/26/25 10:30 02/26/25 10:31 02/26/25 11:01 Temperature 98.6 F Pulse Rate 101 H 105 H 101 H Respiratory Rate 22 H 21 H 15 Blood Pressure 151/83 H 128/83 Pulse Oximetry 93 94 94 Oxygen Delivery Room Air 02/26/25 11:35 02/26/25 14:00 02/26/25 16:00 Temperature 98.7 F 97.8 F Pulse Rate 104 H 95 Respiratory Rate 16 18 Blood Pressure 140/95 H Pulse Oximetry 93 93 Oxygen Delivery Room Air Room Air 02/26/25 17:19 02/26/25 19:39 02/27/25 00:00 Temperature 97.7 F Pulse Rate 95 95 87 Respiratory Rate 18 18 Blood Pressure 130/88 Pulse Oximetry 93 98 Oxygen Delivery Room Air Room Air Exam Const: General: no acute distress HENMT: Mouth: Yes moist mucous membranes Eyes: General: appearance normal, both eyes and all related structures Sclera: sclerae normal Neck: Neck: supple Resp: Effort & Inspection: normal respiratory effort Auscultation: clear to auscultation bilaterally Cardio: Rate: regular rate Rhythm: regular rhythm GI: GI Palp: Yes Soft to palpation Auscultation: normal bowel sounds Skin: General skin exam: normal color and no rashes or lesions noted Neuro: Other: aphasia from previous stroke Extrem: General: normal to inspection Psych: Mental Status: mental status grossly normal H&P: Results Labs Labs: Short CBC 02/26/25 02/27/25 Range/Units 09:17 05:17 WBC 5.4 6.7 (4.8-10.8) K/mm3 Hgb 13.4 13.7 (12.4-15.3) g/dL Hct 41.8 41.7 (37.0-46.0) % Plt Count 128 L 125 L (150-420) K/mm3 [facility] 02/26/25 02/27/25 09:17 05:17 Sodium 140 139 Potassium 4.5 4.3 Chloride 103 105 Carbon Dioxide 28 27 BUN 11 10 Creatinine 1.10 0.88 Glucose 123 H 106 Calcium 9.2 9.6 Cardiac Enzymes 02/26/25 Range/Units 09:17 Total Creatine Kinase 39 L (55-170) U/L Troponin I 0.060 H* (0.000-0.034) ng/mL Liver Function 02/26/25 02/27/25 Range/Units 09:17 05:17 Total Bilirubin 1.4 H 1.5 H (0.2-1.3) mg/dL AST 39 37 (17-59) U/L ALT 19 19 (6-50) U/L Alkaline Phosphatase 104 114 (38-126) U/L Albumin 3.8 3.8 (3.5-5.1) g/dL Urine 02/26/25 Range/Units 09:23 Urine Color Light yellow (Yellow) Urine Appearance Clear (Clear) Urine pH 7.0 (5.0-8.0) Ur Specific [place] <= 1.005 L (1.010-1.020) Urine Protein Negative (Negative) Urine Glucose (UA) Negative (Negative) Imaging CT scan - abdomen: Radiologist's impression: XAMINATION: CT chest abdomen pelvis wo con DATE: 02/26/2025 09:40 INDICATION: Chest and abdominal injury. TECHNIQUE: Computed tomography (CT) of the chest, abdomen, and pelvis was performed without intravenous contrast. Automated exposure control and iterative reconstruction technique were employed. The dose-length product was 780.19 mGy-cm. COMPARISON: Chest CT 02/10/2025 FINDINGS: CHEST CT: The lungs demonstrate smooth septal thickening and groundglass opacities, consistent with mild pulmonary edema. There are are subpleural bands in right lower lobe. There are greater than 20 scattered nodules in the lungs measuring up to 2.9 cm in right lower lobe. No pleural effusion. There is left supraclavicular lymphadenopathy and mediastinal and lymphadenopathy. There are widespread lytic lesions in the bones. Again seen is height loss of many vertebral bodies. ABDOMEN/PELVIS CT: Calcifications in the liver and spleen are consistent with old granulomatous disease. The gallbladder is normal in size. The pancreas and adrenal glands are normal. There are cysts in right kidney measuring up to 3.2 cm. There is a 7 mm stone in right kidney. Left kidney is absent. There is mild left para-aortic lymphadenopathy. The prostate is mildly enlarged. There are brachytherapy seeds in the prostate. There are no dilated loops of bowel. There is no ascites. There are widespread lytic lesions in the bones. There is height loss of multiple vertebral bodies, likely subacute or chronic. IMPRESSION: 1. Pulmonary nodules, chest and abdominal lymphadenopathy, and bone lesions, consistent with metastatic disease. Consider ultrasound-guided core needle biopsy of a left supraclavicular lymph node. 2. Mild pulmonary edema. Reviewed, dictated and finalized at location E. CT scan - head: Radiologist's impression: EXAMINATION: CT brain wo con DATE: 02/26/2025 09:40 INDICATION: Head injury. TECHNIQUE: Computed tomography (CT) of the head was performed without intravenous contrast. The mA was adjusted according to patient size. Iterative reconstruction technique was employed. The dose-length product was 780.19 mGy-cm. COMPARISON: Head CT 02/09/2025 FINDINGS: There is an old infarct involving the left frontal lobe, left insula, and left basal ganglia. There is an old infarct in left thalamus. There is an infarct in left occipital lobe. There is an old infarct in the right caudate nucleus. There are scattered areas of low attenuation in the cerebral white matter. There is no intracranial hemorrhage or abnormal intracranial mass lesion. There is ex vacuo dilatation of left lateral ventricle. The paranasal sinuses are clear. There are likely changes of ocular lens replacement surgeries. The mastoid air cells are normal. IMPRESSION: 1. Acute versus subacute infarct in left occipital lobe, not visible on 02/09/2025. 2. Old infarcts involving the left frontal lobe, left insula, bilateral basal ganglia, and left thalamus. 3. Moderate nonspecific cerebral white matter disease, which likely represents chronic small vessel ischemic disease. Reviewed, dictated and finalized at location E. Assessment and Plan Assessment and plan (1) Acute CVA (cerebrovascular accident): Code(s): I63.9 - Cerebral infarction, unspecified Status: Acute Assessment and Plan: family reported patient had generalized weakness x 5 days prior to presenting to the ED Head CT showed Acute versus subacute infarct in left occipital lobe, not visible on 02/09/2025. 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 (4) BPH (benign prostatic hyperplasia): Code(s): N40.0 - Benign prostatic hyperplasia without lower urinary tract symptoms Status: Acute Assessment and Plan: continue tamsulosin (5) CHF (congestive heart failure): Code(s): I50.9 - Heart failure, unspecified Status: Acute Assessment and Plan: continue metoprolol not on diuretic at home patient appears euvolemic at this time (6) CVA, old, aphasia: Code(s): I69.320 - Aphasia following cerebral infarction Status: Acute Plan patient has residual aphasia from previous stroke this appears to be at baseline per patients son Quality VTE Prophylaxis VTE prophylaxis: mechanical ordered Hospitalist MIPS Medication Reconciliation The patient is not eligible for med reconciliation; the patient is in a emergent medical situation where delaying treatment would jeopardize the patients health.: No
[2025-02-27 08:00] VITALS: BP 151/106; PULSE 92; RESP 16; TEMP 36.9; O2SAT 92
[2025-02-27 08:23] VITALS: PULSE 92
[2025-02-27] MEDS: CLOPIDOGREL BISULFATE 75 MG TABLET PO (08:23)
[2025-02-27] MEDS: ASPIRIN 81 MG ENTERIC TABLET PO (08:23)
[2025-02-27] MEDS: METOPROLOL TARTRATE 12.5 MG TABLET PO (08:23)
[2025-02-27] MEDS: TAMSULOSIN HCL 0.4 MG CAPSULE PO (08:23)
[2025-02-27] MEDS: ENOXAPARIN 40 MG/0.4 ML SYRINGE SUB-Q (08:23)
--- NOTE | 2025-02-27 14:36 | PC.NURSE ---
Patient discharge today at 1425. Discharge instructions, medications, side effects and information on [facility] given to patient and son Darwin (POA). Darwin voiced understanding and informs this bid writer he had no questions. Patient dressed and escorted via WC to family truck, assisted to passenger side of truck and seat latched in place in route to home.
--- NOTE | 2025-03-06 12:20 | PC.NURSE ---
Discharge call back, unable to reach, was seen in ED post discharge and set up with hospice at home.
--- NOTE | 2025-04-01 10:20 | PM.DS ---
DS: Admitting Diagnosis Discharge Date 02/27/25 Admitting Diagnosis acute CVA DS: Discharge Diagnosis Discharge Diagnosis (1) Acute CVA (cerebrovascular accident): Code(s): I63.9 - Cerebral infarction, unspecified Status: Acute Assessment and Plan: family reported patient had generalized weakness x 5 days prior to presenting to the ED Head CT showed Acute versus subacute infarct in left occipital lobe, not visible on 02/09/2025. patient was not a candidate for TPA family did not want patient transferred to a different hospital family wanted patient to be evaluated by PT/OT and are now open to home health care continue aspirin, Plavix and statin PT/OT eval and treat patient will discharge home today with son with 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 Patient was recently discharged from the hospital after an NSTEMI. Family took the patient home and declined home health care services. Patient was brought to the ER yesterday due to generalized weakness for 5 days. Blood work was mostly unremarkable, urinalysis was unremarkable, flu/covid/RSV negative and Head CT showed acute versus subacute infarct in left occipital lobe, not visible on 02/09/2025 imaging. Patient not a candidate for TPA due to symptoms starting 5 days prior to presentation. Patient was admitted for observation and PT/OT evaluation. Patient was seen by PT/OT and will discharge home with [facility] PT/OT. Patient was discharged home with his son. Son will discuss palliative care/hospice with patient's PCP. Time Spent with Patient Time attestation: Total time spent providing and/or coordinating discharge services: 35 Minutes Exam Const: General: no acute distress HENMT: Mouth: Yes moist mucous membranes Eyes: General: appearance normal, both eyes and all related structures Sclera: sclerae normal Neck: Neck: supple Resp: Effort & Inspection: normal respiratory effort Auscultation: clear to auscultation bilaterally Cardio: Rate: regular rate Rhythm: regular rhythm GI: Auscultation: normal bowel sounds Skin: General skin exam: normal color and no rashes or lesions noted Neuro: Other: aphasia from previous stroke Extrem: General: normal to inspection Psych: Mental Status: mental status grossly normal Discharge Plan Discharge Attending physician on discharge: Yonny Ruiz Consulting providers: Tania Chung; Yasmin Fan Jonathan V. Discharging Clinician: Tania Chung Patient Disposition: Home with Home Health Service Activity: as tolerated Diet: heart healthy and low sodium Discharge Instructions: Per Care Coordination: [facility] will follow you at discharge for long-term, physical therapy, occupational therapy, and speech therapy. They will call you to schedule a date and time for your first visit. Their phone number is [phone]. Patient Instructions: Antibiotic Form, Clopidogrel (By mouth), Fall Prevention for Older Adults (DC), Weakness (DC), Stroke (DC) Patient Language: Turkmen Stand Alone Forms: General Discharge Information Follow-up/Referrals: Jazzy Medel NP [Primary Care Provider, [facility]] Referral Note: Please make an appointment to follow up in 1-2 weeks after discharge. Discharge Medications: New clopidogrel 75 mg Tablet 75 mg PO QAM 30 Days Qty: 30 0RF Continued allopurinol 300 mg tablet 300 mg PO DAILY loratadine 10 mg Tablet 10 mg PO HS Qty: 30 0RF tamsulosin 0.4 mg capsule 0.4 mg PO DAILY Qty: 90 3RF metoprolol tartrate 25 mg tablet 12.5 mg PO BID Qty: 180 3RF polyethylene glycol 3350 [Miralax] 17 gram/dose powder 17 g PO DAILY PRN (Reason: constipation) Qty: 510 3RF atorvastatin 80 mg tablet 80 mg PO HS Qty: 90 3RF aspirin 81 mg tablet,delayed release (DR/EC) 81 mg PO DAILY Qty: 90 3RF Date of admission: 02/26/25 10:32 Primary Care Provider: Jazzy Medel Admitting Provider: Yonny Ruiz Attending physician on admission: Yonny Ruiz Condition: Stable
== END 2025-02-27 14:25 | disposition home health service (06) ==
LOC: CHSED 10:16 → CHS2ND 10:49
PROVIDERS: Nurse Practitioner Family; Admitting Provider Internal Medicine; Emergency Provider Emergency Medicine; PCP Nurse Practitioner Family; Visit Provider Internal Medicine
DX: I63.9 Cerebral infarction, unspecified (principal); C61 Malignant neoplasm of prostate; C79.9 Secondary malignant neoplasm of unspecified site; R53.1 Weakness; I11.0 Hypertensive heart disease with heart failure; I50.9 Heart failure, unspecified; I69.320 Aphasia following cerebral infarction; E11.9 Type 2 diabetes mellitus without complications; E78.5 Hyperlipidemia, unspecified; I25.2 Old myocardial infarction; Z87.891 Personal history of nicotine dependence; Z66 Do not resuscitate; Z20.822 Contact with and (suspected) exposure to COVID-19
CPT/HCPCS: 36415; 70450; 71250; 74176; 80053; 81003; 82550; 83605; 83735; 83880; 84443; 84484; 85025; 85055; 85610; 85730; 87040; 87637; 93005; 96360; 96372; 97161; 97165; 99285; A9270; G0378; J1650; J7030

== ENCOUNTER 2025-03-04 11:24 | Emergency (ER) | payer MEDICARE, SELFPAY ==
[2025-03-04] VITALS (10 sets, daily range): BP systolic 79–135; BP diastolic 57–75; PULSE 72–119; RESP 17–28; TEMP 36.9; O2SAT 89–95
--- NOTE | ~2025-03-04 | XR_ITS ---
Examination: XR chest 1V portable Clinical History: cough Comparison: 02/09/2025 Technique: Portable AP Findings: Heart size normal. Focal right basilar patchy opacity. Widespread nodules on prior CT poorly seen on portable chest x-ray. No acute bony abnormality. IMPRESSION: 1. Right basilar atelectasis and/or airspace disease. Reviewed, dictated and finalized at location R.
--- NOTE | ~2025-03-04 | CT_ITS ---
EXAMINATION: CT brain wo faustino, 03/04/2025 12:00 CDT HISTORY: AMS COMPARISON: No comparisons available. Technique: Axial images obtained of the brain without contrast. One or more of the following dose reduction techniques were used: automated exposure control, adjustment of the mA and/or kV according to patient size, use of iterative reconstruction technique. Findings: There is a large left frontal infarct. There is an area of abnormal density within the posterior aspect of the left occipital lobe with areas of increased density concerning for hemorrhage, the largest focus measures 6 x 9 mm. There is no midline shift. There are remote left basal ganglion lacunar infarcts. No additional extra-axial fluid collections. Mastoid air cells unremarkable. Sinuses and orbits unremarkable. No acute fracture. No significant facial or scalp soft tissue swelling evident. No radiopaque foreign body is seen. Impression: Acute left occipital infarct . There are areas of increased density which is progressed compared to the prior exam concerning for hemorrhagic transformation. Results discussed with the referring clinician immediately Reviewed, dictated and finalized at location A. Impression: Acute left occipital infarct . There are areas of increased density which is pr ogressed compared to the prior exam concerning for hemorrhagic transformation. Results discussed with the referring clinician immediately
--- NOTE | 2025-03-04 11:27 | ECG_ITS ---
Test Date: 2025-03-04 11:37:06 Measurements Intervals [place] Rate: 104 P: 10 DC: 146 QRS: -25 QRSD: 106 T: 74 QT: 346 QTc: 457 Interpretive Statements SINUS TACHYCARDIA WITH FREQUENT SUPRAVENTRICULAR PREMATURE COMPLEXES LEFT VENTRICULAR HYPERTROPHY AND ST-T CHANGE [VOLTAGE CRITERIA PLUS ST/T ABNORMALITY] Compared to ECG 02/26/2025 08:43:05 NO SIGNIFICANT CHANGES Electronically Signed On 03-04-2025 14:40:09 CDT by Sky Fan M.D.
[2025-03-04 11:53] LABS: Hematocrit 36.3 % (37.0-46.0); Hemoglobin 11.7 g/dL (12.4-15.3); Immature Granulocyte Percent A 0.7 % (0.0-0.0); Immature Platelet Fraction Pct 3.0 % (1.0-7.0); Lymphocytes Absolute Auto 0.66 K/mm3 (1.10-4.50); Mean Corpuscular HGB Conc 32.2 g/dL (32-36); Mean Corpuscular Hemoglobin 31.0 pg (27.0-31.0); Mean Corpuscular Volume 96.0 fL (78.0-102.0); Nucleated Red Blood Cells Absolute Auto 0.00 K/mm3 (0.00-0.00); Nucleated Red Blood Cells Perc 0.0 % (0-0.0); Platelet Count Result 137 K/mm3 (150-420); Red Blood Count 3.78 M/mm3 (4.70-6.10); White Blood Count 12.8 K/mm3 (4.8-10.8)
[2025-03-04] MEDS: SODIUM CHLORIDE 0.9% IV 1,000 ML 999 ML IV CONT (12:03)
--- NOTE | 2025-03-04 12:05 | PC.NURSE ---
Pt taken to radiology for CT scan
[2025-03-04 12:07] LABS: Alanine Aminotransferase 26 U/L (6-50); Albumin Level 3.4 g/dL (3.5-5.1); Alkaline Phosphatase 95 U/L (38-126); Anion Gap 11 mmol/L (4-12); Aspartate Amino Transferase 43 U/L (17-59); Bilirubin,Total 1.7 mg/dL (0.2-1.3); Blood Urea Nitrogen 11 mg/dL (9-20); Calcium 8.7 mg/dL (8.4-10.2); Carbon Dioxide 23 mmol/L (22-30); Chloride 102 mmol/L (98-107); Estimated CRCL calculation 46 ml/min; Estimated Glomerular Filt Rate > 60; Glucose 187 mg/dL (65-110); Osmolality Calculated 286 mOsm/kg (285-295); Potassium 4.3 mmol/L (3.4-5.0); Sodium 136 mmol/L (137-145); Total Protein 6.1 g/dL (6.3-8.2)
[2025-03-04 12:15] LABS: NT Pro B Type Natriuretic Pept 364 pg/mL (19.9-100)
--- NOTE | 2025-03-04 12:19 | PC.NURSE ---
Pt returns to ED from radiology
[2025-03-04 12:21] LABS: Troponin I 0.054 ng/mL (0.000-0.034)
--- OUTSIDE RECORDS SUMMARY | 2025-03-04 12:35 | XMS_ITS | Clinical Summary ---
Author Organization [facility] Address [address] [place] [address] Care Team Providers Care Counter Top Maker Name Role Phone Karen Watkins TAMARA Primary Care Provider [phone] Jaylen Mccarty MD Unavailable [phone] Fiorella Gilman PA-C Unavailable + [phone] Allergies Active Allergy Reactions Criticality Noted Date [...] on file Legal Sex Male 5:50 PM BLUE [employer]IN[employer] Gender Identity Not on file Sexual Orientation [...] complete this topic Insurance MEDICARE Care Teams Counter Top Maker Relationship Specialty Start Date End Date Karen Watkins APNP [address] [place] [address] PCP - General NURSE PRACTITIONER 11/22/23 Jaylen Mccarty MD [address] [place] [id number] Consulting Physician CLINICAL CARDIAC ELECTROPHYSIOLOGY 11/24/23 Fiorella Gilman PA-C [address] [place], [place] [address] Physician Filler Shredding Machine Loader CLINICAL CARDIAC ELECTROPHYSIOLOGY 11/24/23
--- NOTE | 2025-03-04 13:06 | PC.NURSE ---
Hospital's Surgical Services Coordinator is in room with pt and family.
--- NOTE | 2025-03-04 13:23 | ED_ITS ---
HPI - Altered Mental Status General Chief Complaint: Altered Mental Status Stated Complaint: sob Time Seen by Provider: 03/04/25 11:27 Source: EMS Mode of arrival: EMS Limitations: clinical condition and dementia History of Present Illness HPI narrative: 84-year-old with a history of NSTEMI, CVA, hypertension was brought in from home with the complaints fall. Patient was recently discharged from the hospital acute CVA and NSTEMI. has moved with his progressive decline in his mental status over the last few days been falling quite frequently. Had a fall this morning. Patient upon arrival has no complaints . complaint: altered mental status and confusion Onset (ago): day(s) (4) Timing confirmed by: family member Severity: moderate Associated symptoms: denies other symptoms Related Data Home Medications ?Medication ?Instructions ?Recorded ?Confirmed ?Last Taken ?Type allopurinol 300 mg tablet 300 mg PO DAILY 02/26/2502/26/25 History Allergies Allergy/AdvReac Type Severity Reaction Status Date / Time Penicillins AdvReac FEET Verified 03/04/25 11:31 SWELLING Review of Systems 2 Review of Systems: All systems reviewed & are unremarkable except as noted in HPI and below Constitutional: Constitutional: Reports no additional constitutional complaints Eyes: Eyes: Reports no additional eye complaints ENT: Reports system reviewed and no additional complaints, except as documented Cardiovascular: Cardiovascular: Reports no additional cardiovascular complaints Respiratory: Respiratory: Reports no additional respiratory complaints Gastrointestinal: Gastrointestinal: Reports no additional gastrointestinal complaints Musculoskeletal: Musculoskeletal: Reports no additional musculoskeletal complaints Integumentary/Breasts: Skin/Breast: Reports system reviewed and no additional complaints, except as docu PMFSH Past Medical History Medical History BPH (benign prostatic hyperplasia) Type 2 diabetes mellitus CVA, old, aphasia History of prostate cancer Forgetfulness Hyperlipidemia HTN (hypertension) Surgical History Surgical History History of kidney removal Social History Social History Smoking packs per day: 1 Smoking cigarettes per day: 20.0 Years smoked: 30 Smoking pack-years: 30.00 Smoking status: Former smoker Tobacco type: cigarettes Second hand tobacco smoke exposure: No Additional smoking assessment comments: STAETS QUIT 2017~ Alcohol intake: never Alcohol use details: RARELY - COUPLE TIMES A YR Substance use: never Substance use type: does not use Do You Feel Safe in your Home?: Yes Lack of Transportation: No Lack of Food: Never True Current Housing: I Have Housing Concerned About Future Housing: No Difficulty Paying Gas/Electric Bills: No Difficulty Paying for Meds: No Currently Unemployed: No Education: Trade/Vocational Certificate Difficulty w/ Childcare or Family Care: No Living arrangements: alone Occupation/Education: retired Gender identity (if verbalized by the patient): Male Sexual Orientation (if Verbalized by the Patient): Straight or Heterosexual Spiritual care concerns: No Exam 2 Narrative: GENERAL: Well-appearing, well-nourished, and in no acute distress. HEAD: Normocephalic, atraumatic. EYES: PERRLA and EOMI. ENT: Nares clear, no rhinorrhea or epistaxis. Mucous membranes moist. NECK: Supple. CHEST: Clear to auscultation. No respiratory distress. HEART: Regular rate and rhythm. No murmur heard. Normal peripheral pulses. ABDOMEN: Soft, nontender, nondistended, normal active bowel sounds. EXTREMITIES: Normal range of motion. No edema. SKIN: Warm, dry, no rash. NEURO: No focal deficits. Alert and oriented x2 PSYCH: Normal mood and affect. Course Course Emergency Course: informed patient and the family about his lab work, CT findings. Initially airway agreeable for transfer to [facility] for hemorrhagic stroke after family discussion , Family decided hospice care. Case management was consulted. Vital Signs Vital signs: Vital Signs Temperature 36.9 C 03/04/25 11:25 Pulse Rate 72 03/04/25 11:25 Respiratory Rate 03/04/25 11:25 Blood Pressure 91/65 L 03/04/25 11:25 Pulse Oximetry 93 03/04/25 11:25 Oxygen Delivery Nasal Cannula 03/04/25 11:25 Oxygen Flow Rate 2 03/04/25 11:25 Temperature 36.9 C 03/04/25 11:25 Pulse Rate 72 03/04/25 11:25 Respiratory Rate 20 03/04/25 11:25 Blood Pressure 91/65 L 03/04/25 11:25 Pulse Oximetry 93 03/04/25 11:25 Oxygen Delivery Nasal Cannula 03/04/25 11:25 Oxygen Flow Rate 2 03/04/25 11:25 MDM - Altered Mental Status Differential Diagnosis Differential diagnosis: Likely altered mental status, delirium, dementia and subarachnoid hemorrhage Medical Records Attestation: I reviewed the patient's medical records. Lab Data Attestation: I reviewed the patient's lab results. 03/04/25 11:46 03/04/25 11:46 Labs: Lab Results 03/04/25 Range/Units 11:46 WBC 12.8 H (4.8-10.8) K/mm3 RBC 3.78 L (4.70-6.10) M/mm3 Hgb 11.7 L (12.4-15.3) g/dL Hct 36.3 L (37.0-46.0) % MCV 96.0 (78.0-102.0) fL MCH 31.0 (27.0-31.0) pg MCHC 32.2 (32-36) g/dL RDW 13.7 (11.6-14.4) % Plt Count 137 L (150-420) K/mm3 MPV 10.1 (8.7-11.0) fl Immature Gran % (Auto) 0.7 H (0.0-0.0) % Neut % (Auto) 87.1 H (50.0-70.0) % Lymph % (Auto) 5.2 L (18.0-42.0) % [place] % (Auto) 6.3 (2.0-11.0) % Eos % (Auto) 0.5 L (1.0-6.0) % Baso % (Auto) 0.2 (0.0-1.0) % Lymph # (Auto) 0.66 L (1.10-4.50) K/mm3 [place] # (Auto) 0.80 (0.10-0.90) K/mm3 Eos # (Auto) 0.07 (0.02-0.50) K/mm3 Baso # (Auto) 0.03 (0.00-0.10) K/mm3 Abs Immat Gran (auto) 0.09 H (0.00-0.00) K/mm3 Absolute Neuts (auto) 11.15 H (1.70-7.20) K/mm3 Absolute Nucleated RBC 0.00 (0.00-0.00) K/mm3 Nucleated RBC % 0.0 (0-0.0) % % Immature Plt Fraction 3.0 (1.0-7.0) % Sodium 136 L (137-145) mmol/L Potassium 4.3 (3.4-5.0) mmol/L Chloride 102 (98-107) mmol/L Carbon Dioxide 23 (22-30) mmol/L Anion Gap 11 (4-12) mmol/L BUN 11 (9-20) mg/dL Creatinine 1.09 (0.7-1.3) mg/dL Estim Creat Clear Calc 46 ml/min Estimated GFR > 60 (59 - ) Glucose 187 H (65-110) mg/dL Calculated Osmolality 286 (285-295) mOsm/kg Lactic Acid 4.2 H (0.4-2.0) mmol/L Calcium 8.7 (8.4-10.2) mg/dL Total Bilirubin 1.7 H (0.2-1.3) mg/dL AST 43 (17-59) U/L ALT 26 (6-50) U/L Alkaline Phosphatase 95 (38-126) U/L Troponin I 0.054 H* (0.000-0.034) ng/mL NT-Pro-B Natriuret Pep 364 H (19.9-100) pg/mL Total Protein 6.1 L (6.3-8.2) g/dL Albumin 3.4 L (3.5-5.1) g/dL ABG Data Interpretation: ITS Impressions Head CT 03/04/25 12:22 Impression: Acute left occipital infarct . There are areas of increased density which is progressed compared to the prior exam concerning for hemorrhagic transformation. Results discussed with the referring clinician immediately Chest X-Ray 03/04/25 12:33 IMPRESSION: 1. Right basilar atelectasis and/or airspace disease. ECG Data EKG #1: ECG completion date: 03/04/25 ECG completion time: 11:37 EKG Interpretation: tachycardia (104), no ectopy, normal QRS and NL axis Discharge Plan Discharge Clinical Impression: Cerebrovascular accident, hemorrhagic AMS (altered mental status) Qualifiers: Altered mental status type: unspecified Qualified Code(s): R41.82 - Altered mental status, unspecified Patient Disposition: Hospice - Home Condition: Stable Instructions: Altered Mental Status (ED) Additional Instructions: continue home medications, follow with your doctor stop Plavix Patient Language: [place] Prescriptions: No Action allopurinol 300 mg tablet 300 mg PO DAILY clopidogrel 75 mg Tablet 75 mg PO QAM 30 Days Qty: 30 0RF loratadine 10 mg Tablet 10 mg PO HS Qty: 30 0RF tamsulosin 0.4 mg capsule 0.4 mg PO DAILY Qty: 90 3RF metoprolol tartrate 25 mg tablet 12.5 mg PO BID Qty: 180 3RF polyethylene glycol 3350 [Miralax] 17 gram/dose powder 17 g PO DAILY PRN (Reason: constipation) Qty: 510 3RF atorvastatin 80 mg tablet 80 mg PO HS Qty: 90 3RF aspirin 81 mg tablet,delayed release (DR/EC) 81 mg PO DAILY Qty: 90 3RF Follow-up/Referrals: Jazzy Medel NP [Primary Care Provider, Family Practice] Time of Disposition: 13:25
--- NOTE | 2025-03-04 13:24 | PC.NURSE ---
Hospice contacted. They will be out to pt's house this evening to assess and set up a space for pt. Pt is free to discharge from ED at this time from their standpoint.
--- NOTE | 2025-03-04 13:40 | PCCCNOTE ---
[facility] spoke with patient, son, Darwin (HCPOA), and patient's brother, Apollo, at bedside. Patient/family would like to pursue hospice. Patient is current with [facility] and CC spoke with Louise, [facility] outside sales associate. Louise states they can admit patient today or this evening. Louise spoke with Darwin and answered any questions he had regarding hospice. Darwin is comfortable with patient discharging home today with hospice following. Darwin states they don't need any equipment prior to discharge and Louise will follow up later today regarding any equipment set up. Darwin states patient will have 24 hr care at home. He denies any further questions or needs. CC will send referral to [facility].
--- OUTSIDE RECORDS SUMMARY | 2025-04-27 19:00 | XMS_ITS | Clinical Summary ---
Author Organization Unknown Care Team Providers Care Enamel Drier Name Role Phone SHANNA FLY WINDER, RENEE Unavailable Unavailable PAMELA SPEECH THERAPIST, MS, CCC/SCIENTIFIC PHOTOGRAPHER, JAYLYN Un available Unavailable NA PHYSICAL THERAPIST, ASCENCION Unavailabl e Unavailable HERMELINDA RECREATION THERAPY TEACHER, SKYLA Unavail able Unavailable SIMON REGISTERED NURSE SOD STRIPPER, FLOYD Ca olegiladipti Unavailable Payers Payer Name Policy Type Policy Number Effective Date Expira tion Date MEDICARE [place] - EPISODIC [id number] Problems Condition Name Condition Details Condition Category Status Onset Date Resolution Date Last Treatment Date Treating Clinician Comments APHASIA FOLLOWING CEREBRAL INFARCTION Active 02-11 00:00: 00 MALIGNANT NEOPLASM OF PROSTATE Active 02-11 00:00: 00 HYPERLIPIDEM IA, UNSPECIFIED Active 02-11 00:00: 00 ESSENTIAL (PRIMARY) HYPERTENSION Active 02-11 00:00: 00 NON-ST ELEVATION (NSTEMI) MYOCARDIAL INFARCTION Active 02-11 00:00: 00 BENIGN PROSTATIC HYPERPLASIA WITHOUT LOWER URINRY TRACT SYMP Active 02-11 00:00: 00 PERSONAL HISTORY OF NICOTINE DEPENDENCE Active 02-11 00:00: 00 RESIDENTIAL (CURRENT) USE OF ASPIRIN Active 06-13 00:00: 00 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 Ordering Clinician Indication Dosage Frequency Signature (SIG) Comments Components allopurinol 300 mg tablet 02-27 00:00: 00 Yes [id number] REDUCE COLCHICINE 1 tablet ONCE DAILY 1 tablet ONCE DAILY (route: oral) Med Classific ation: Gout and Hyperuric emia Therapy aspirin 81 mg tablet,savannah yed release 02-27 00:00: 00 Yes [id number] CIRCULATION 1 tablet ONCE DAILY 1 tablet ONCE DAILY (route: oral) Med Classific ation: Hematolog ical Agents atorvastati n 80 mg tablet 02-27 00:00: 00 Yes [id number] CHOLESTEROL 1 tablet ONCE DAILY 1 tablet ONCE DAILY (route: oral) Med Classific ation: Cardiovas cular Therapy Agents clopidogrel 75 mg tablet 02-27 00:00: 00 Yes [id number] BLOOD THINNER 1 tablet ONCE DAILY 1 tablet ONCE DAILY (route: oral) Med Classific ation: Hematolog ical Agents loratadine 10 mg tablet 02-27 00:00: 00 Yes [id number] ALLERGIES 1 tablet ONCE DAILY 1 tablet ONCE DAILY (route: oral) Med Classific ation: Respirato ry Therapy Agents metoprolol tartrate 25 mg tablet 02-27 00:00: 00 Yes [id number] HEART RATE CONTROL 0.5 tablet TWICE DAILY 0.5 tablet TWICE DAILY (route: oral) Med Classific ation: Cardiovas cular Therapy Agents Miralax 17 gram/dose oral powder 02-27 00:00: 00 Yes [id number] CONSTIPATIO N 17 gram ONCE DAILY 17 gram ONCE DAILY (route: oral) Med Classific ation: Gastroint estinal Therapy Agents tamsulosin 0.4 mg capsule 02-27 00:00: 00 Yes [id number] PROSTATE 1 capsule ONCE DAILY 1 capsule ONCE DAILY (route: oral) Med Classific ation: Genitouri nary Therapy Immunizations Ordered Immunization Name Filled Immunization Name Date Status Comments Refusal Reason VACCINATION STATUS UNKNOWN PER PATIENT, N/A 2025-02-28 00:00:00 Vital Signs Vital Name Observation Time Observation Value Commen ts Temperature 2025-02-28 12:39:00.000 97.5 [degF] BMI (%) 2025-02-28 12:39:00.000 27 kg/m2 Height 2025-02-28 12:39:00.000 69 [in_us] Pulse 2025-02-28 12:39:00.000 86 /min O2 Saturation (%) 2025-02-28 12:39:00.000 95 % Respirations 2025-02-28 12:39:00.000 16 /min Weight (lbs) 2025-02-28 12:39:00.000 184 [lb_av] Systolic Blood Pressure 2025-02-28 12:40:00.000 104 mm [Hg] Diastolic Blood Pressure 2025-02-28 12:40:00.000 58 mm [Hg] Plan of Treatment Planned Activity Planned Date Details Comments Future Scheduled Test THE CER TIFYING PHYSICIAN, ASSOCIATED PHYSICIAN, NPP OR PA WITHIN THE SAME GROUP MAY APPROVE AND SIGN THE ORDER (ON ANY PAGE) ATTESTING THAT THE COMPREHENSIVE OUTCOME ASSESSMENTS, EVALUATIONS, AND HOME HEALTH CERTIFICATION PLANS SUPPORT HOMEBOUND STATUS. HOME HEALTH WEB-PORTAL DOCUMENTATION ACCESSED BY THE PHYSICIAN MUST BE INCORPORATED INTO THE MEDICAL RECORD TO CORROBORATE THE PHYSICIAN, NPP, OR PA S F2F ENCOUNTER TO SUPPORT ELIGIBILITY FOR HOME HEALTH SERVICES. [code = THE CERTIFYING PHYSICIAN, ASSOCIATED PHYSICIAN, NPP OR PA WITHIN THE SAME GROUP MAY APPROVE AND SIGN THE ORDER (ON ANY PAGE) ATTESTING THAT THE COMPREHENSIVE OUTCOME ASSESSMENTS, EVALUATIONS, AND HOME HEALTH CERTIFICATION PLANS SUPPORT HOMEBOUND STATUS. HOME HEALTH WEB-PORTAL DOCUMENTATION ACCESSED BY THE PHYSICIAN MUST BE INCORPORATED INTO THE MEDICAL RECORD TO CORROBORATE THE PHYSICIAN, NPP, OR PA S F2F ENCOUNTER TO SUPPORT ELIGIBILITY FOR HOME HEALTH SERVICES.] Future Scheduled Test EACH ORDER ED IN-HOME OR TELEHEALTH VISIT, THE SKILLED NURSE WILL CONDUCT A COMPREHENSIVE ASSESSMENT INCLUDING VITAL SIGNS, PAIN, SAFETY, MENTAL/COGNITIVE/PSYCHOSOCIAL STATUS, MED MANAGEMENT, NUTRITION, SKIN INTEGRITY, PRESSURE ULCER PREVENTION, AND PATIENT/CAREGIVER ABILITY TO SUPPORT ORDERED CARE. SKILLED NURSE WILL INSTRUCT ON DISEASE PROCESS, MED MGMT., FALL PREVENTION AND SAFETY, INFECTION CONTROL AND PREVENTION, WARNING SIGNS, ADDRESS RESULTS OUTSIDE OF ORDERED PARAMETERS LISTED ON CARE PLAN, AND COORDINATE DISCHARGE WITH THE TREATING PROVIDER. MAY ACCEPT ORDERS FROM THE FOLLOWING PROVIDER(S) WHO WILL BE CONSULTING ON THE CERTIFIED CARE PLAN: RENEE OTERO NP AND ANYONE COVERING IN THEIR ABSENCE. [code = EACH ORDERED IN-HOME OR TELEHEALTH VISIT, THE SKILLED NURSE WILL CONDUCT A COMPREHENSIVE ASSESSMENT INCLUDING VITAL SIGNS, PAIN, SAFETY, MENTAL/COGNITIVE/PSYCHOSOCIAL STATUS, MED MANAGEMENT, NUTRITION, SKIN INTEGRITY, PRESSURE ULCER PREVENTION, AND PATIENT/CAREGIVER ABILITY TO SUPPORT ORDERED CARE. SKILLED NURSE WILL INSTRUCT ON DISEASE PROCESS, MED MGMT., FALL PREVENTION AND SAFETY, INFECTION CONTROL AND PREVENTION, WARNING SIGNS, ADDRESS RESULTS OUTSIDE OF ORDERED PARAMETERS LISTED ON CARE PLAN, AND COORDINATE DISCHARGE WITH THE TREATING PROVIDER. MAY ACCEPT ORDERS FROM THE FOLLOWING PROVIDER(S) WHO WILL BE CONSULTING ON THE CERTIFIED CARE PLAN: RENEE OTERO NP AND ANYONE COVERING IN THEIR ABSENCE.] Future Scheduled Test HOME HEALT H NURSE WILL INSTRUCT PATIENT/CAREGIVER ABOUT THE CEREBRAL VASCULAR ACCIDENT, SIGNS AND SYMPTOMS OF CVA, WARNING SIGNS TO CONTACT 911 OR THE AGENCY OR PHYSICIAN, AND SAFETY MEASURES TO IMPLEMENT IN THE HOME. [code = HOME HEALTH NURSE WILL INSTRUCT PATIENT/CAREGIVER ABOUT THE CEREBRAL VASCULAR ACCIDENT, SIGNS AND SYMPTOMS OF CVA, WARNING SIGNS TO CONTACT 911 OR THE AGENCY OR PHYSICIAN, AND SAFETY MEASURES TO IMPLEMENT IN THE HOME.] Future Scheduled Test HOME HEALT H NURSE WILL ASSESS FOR COMPLICATIONS RELATED TO ANTIPLATELET USE AND INSTRUCT PATIENT/CAREGIVER ABOUT PRECAUTIONS TO FOLLOW AND SIGNS/SYMPTOMS TO REPORT. [code = HOME HEALTH NURSE WILL ASSESS FOR COMPLICATIONS RELATED TO ANTIPLATELET USE AND INSTRUCT PATIENT/CAREGIVER ABOUT PRECAUTIONS TO FOLLOW AND SIGNS/SYMPTOMS TO REPORT.] Future Scheduled Test HOME HEALT H NURSE WILL TEACH PATIENT/CAREGIVER ABOUT THE USE OF A SYMPTOM LOG TO MONITOR PHYSICAL SIDE EFFECTS. HOME HEALTH NURSE WILL MONITOR THE RECORDED SYMPTOM LOG AND INFORM THE PHYSICIAN OF SYMPTOMS SO CHANGES CAN BE MADE WITH PRESCRIBED MEDICATIONS/TREATMENTS TO ALLEVIATE DISCOMFORT. [code = HOME HEALTH NURSE WILL TEACH PATIENT/CAREGIVER ABOUT THE USE OF A SYMPTOM LOG TO MONITOR PHYSICAL SIDE EFFECTS. HOME HEALTH NURSE WILL MONITOR THE RECORDED SYMPTOM LOG AND INFORM THE PHYSICIAN OF SYMPTOMS SO CHANGES CAN BE MADE WITH PRESCRIBED MEDICATIONS/TREATMENTS TO ALLEVIATE DISCOMFORT.] Future Scheduled Test PHYSICAL T HERAPIST TO EVALUATE AND TREAT [code = PHYSICAL THERAPIST TO EVALUATE AND TREAT] Future Scheduled Test SPEECH EMILEE GUAGE PATHOLOGIST TO EVALUATE AND TREAT. [code = SPEECH LANGUAGE PATHOLOGIST TO EVALUATE AND TREAT.] Goal Patient Goal - S OC 02/28/25; TO REMAIN FREE FROM FALLS, INFECTIONS, AND HOSPITALIZATIONS. Goal Provider Goal - PATIENT/CAREGIVER WILL DEMONSTRATE ABILITY TO CARE FOR CEREBRAL VASCULAR ACCIDENT EVIDENCED BY INCORPORATING SAFETY MEASURES IN THE HOME BY EOE. Goal Provider Goal - PATIENT/CAREGIVER WILL VERBALIZE UNDERSTANDING OF ANTIPLATELET COMPLICATIONS TO REPORT AND PRECAUTIONS TO FOLLOW BY END OF HOME HEALTH SERVICES. Goal Provider Goal - PATIENT/CAREGIVER WILL DEMONSTRATE THE USE OF SYMPTOM LOG AND HOW TO IDENTIFY WHEN TO CALL THE TREATING PROVIDER. Goal Provider Goal - A PLAN OF CARE WILL BE ESTABLISHED THAT MEETS ALL PATIENT'S LONG-TERM NEEDS AND COUNTER SIGNED BY PHYSICIAN. Goal Provider Goal - PATIENT WILL BE FREE OF FALLS AND HOSPITALIZATIONS THROUGHOUT EPISODE OF CARE. PATIENT/CAREGIVER WILL UNDERSTAND AND ADHERE TO ORDERED DIET. PATIENT/CAREGIVER WILL INDEPENDENTLY MANAGE MEDICATIONS, UNDERSTAND ANY CHANGES, SIDE EFFECTS TO REPORT BY EOE. PATIENT WILL BE FREE OF INFECTION AND UNDERSTAND MEASURES OF PREVENTION. PATIENT/CAREGIVER WILL COLLABORATE WITH SKILLED NURSE TO DEVELOP POC AT SOC AND ON AN ONGOING BASIS UPDATES ARE NEEDED. UNDERSTAND PROGRESS MADE/DISCHARGE PLANNING. ADDITIONAL ORDERS WILL BE RECEIVED FROM ALTERNATE PHYSICIANS IN A TIMELY MANNER. Goal Provider Goal - Goal Provider Goal - Encounters Start Date/Time End Date/Time Encounter Type Admission Type Attending [facility] Care Department Encounter ID Discharge Date Discharge Status Discharge Condition Discharge Reason Percent Goals Met 2025-02-28 00:00:00 2025-04-28 00:00:00 Outpatient NEW ADMISSION FLOYD MONTES [facility] [id number] 100.00
== END 2025-03-04 14:01 | disposition hospice, home (50) ==
PROVIDERS: Emergency Provider Family Medicine; PCP Nurse Practitioner Family
DX: I63.9 Cerebral infarction, unspecified (principal); R41.82 Altered mental status, unspecified; I25.2 Old myocardial infarction; I10 Essential (primary) hypertension; E11.9 Type 2 diabetes mellitus without complications; E78.5 Hyperlipidemia, unspecified; Z85.46 Personal history of malignant neoplasm of prostate; Z86.73 Personal history of transient ischemic attack (TIA), and cerebral infarction without residual deficits; Z87.891 Personal history of nicotine dependence
CPT/HCPCS: 36415; 70450; 71045; 80053; 83605; 83880; 84484; 85025; 85055; 93005; 96360; 99284; J7030